=== PATIENT | male | born 1985 | race Caucasian/White ===

== ENCOUNTER 2019-04-07 10:54 | Inpatient (IN) | payer OTHER ==
[~2019-04-07] VITALS: Ht 190.5 cm; Wt 169.6 kg
[2019-04-07 11:04] VITALS: BP 162/97
[2019-04-07] MEDS ORDERED: AMPICILLIN/SULBACTAM 3 GM in NACL 0.9% MINI-BAG PLUS 100 ML IV ONE (11:25)
[2019-04-07] MEDS ORDERED: NACL 0.9% 1,000 ML IV SCH (11:25)
--- NOTE | 2019-04-07 11:30 | NUR ---
PT BIB GIRLFRIEND FOR WOUND TO LT FOOT X1 YEAR. OLD DRESSING REMOVED. PT HAS OPEN WOUND TO LT FOOT, TENDON VISIBLE, WOUND BED GRANULATING, SANGRIOUS DRAINAGE, NO ODOR PRESENT, PERIWOUND DRY/CRACKED/CALOUSED, + EDEMA. PERDORMED WOUND CARE. CLEANSED W/ NS, APPLIED WET TO DRY DRESSING, WRAPED WITH KERLEX AND SECURED WITH TAPE. PT TOLERATED WELL. ER MD AT BEDSIDE AT THIS TIME. MEDHX:DM, HTN, AMPUTATION OF LT 1RST AND 5TH TOE RX:PT SONDRA WENT TO GET LIST.
[2019-04-07] MEDS ORDERED: AMPICILLIN/SULBACTAM 3 GM VIAL ONE (11:41)
--- NOTE | 2019-04-07 11:41 | NUR ---
X-RAY AT BEDSIDE
[2019-04-07 11:56] LABS: ANION GAP 14.8 (8-16); BASOPHILS # (AUTO) 0.1 K/uL (0.00-0.22); CARBON DIOXIDE 21.8 mmol/L (21-32); CREATININE 2.7 mg/dL (0.7-1.3); EOSINOPHILS # (AUTO) 0.3 K/uL (0-0.4); MONOCYTES # (AUTO) 1.3 K/uL (0.8-1.0); NEUTROPHILS # (AUTO) 7.4 K/uL (1.8-7.7); POTASSIUM 4.6 mmol/L (3.5-5.1); WHITE BLOOD COUNT (AUTO) 10.6 K/uL (4.8-10.8)
[2019-04-07 12:03] LABS: MEAN CORPUSCULAR HGB CONC 33 g/dL (33-37)
[2019-04-07 12:04] LABS: BASOPHILS % (AUTO) 0.6 % (0.0-2.0); EOSINOPHILS % (AUTO) 2.9 % (0.0-4.0); HEMATOCRIT 22.9 % (36-52); HEMOGLOBIN 7.5 g/dL (12.0-18.0); LYMPHOCYTES % (AUTO) 14.3 % (20.5-51.1); MEAN CORPUSCULAR HEMOGLOBIN 28 pg (27-31); MEAN CORPUSCULAR VOLUME 86.9 fL (80-94); NEUTROPHILS % (AUTO) 70.2 % (42.2-75.2); PLATELET COUNT (AUTO) 425 K/uL (140-450); RED BLOOD CELL COUNT(AUTO) 2.64 MIL/uL (4.20-6.10)
[2019-04-07 12:05] LABS: LYMPHOCYTES # (AUTO) 1.5 K/uL (2.0-11.5)
--- NOTE | 2019-04-07 12:05 | NUR ---
PT REPORTS PAIN AT 8 IN LT FOOR, ER NOTIFIED
[2019-04-07] MEDS ORDERED: MORPHINE SULFATE 4 MG/ML SYR IVP ONE (12:20)
[2019-04-07] MEDS ORDERED: CLON0.2T43 PO (12:44)
[2019-04-07] MEDS ORDERED: METO-485 PO (12:44)
[2019-04-07] MEDS ORDERED: HYDR100T79 PO (12:44)
[2019-04-07] MEDS ORDERED: RANI150T8 PO (12:44)
[2019-04-07] MEDS ORDERED: [UNRECOGNIZED DRUG - CODE] PO (12:44)
[2019-04-07] MEDS ORDERED: AMLO5TAB PO (12:44)
--- NOTE | 2019-04-07 13:30 | NUR ---
Patient noted to have existing wound upon arrival to ER to left foot. Photos taken of wound and placed in chart. Wound covered with dressing. Physician informed.
[2019-04-07] MEDS ORDERED: MORPHINE SULFATE 10 MG/ML VIAL IVP ONE (13:35)
[2019-04-07] MEDS ORDERED: HYDROcodone/APAP 5/325 MG 1 TAB TAB PO PRN ×2 (13:45→14:30)
[2019-04-07] MEDS ORDERED: VANCOMYCIN PER PHARMACY MC PRN (13:45)
[2019-04-07 14:30] VITALS: BP 152/89
[2019-04-07] MEDS ORDERED: ACETAMINOPHEN 325 MG TAB PO PRN (14:30)
[2019-04-07] MEDS ORDERED: ONDANSETRON 4 MG/2 ML VIAL IVP PRN (14:30)
[2019-04-07] MEDS ORDERED: LORazepam 2 MG/ML VIAL IVP PRN (14:30)
--- NOTE | 2019-04-07 14:30 | NUR ---
Patient will be admitted to care of [facility]. Admited to MED/SURG. Will go to room 105A. Belongings list completed. Report to AUDREY RIZO.
--- NOTE | 2019-04-07 14:30 | NUR ---
PATIENT ARRIVED FROM ER VIA WHEELCHAIR. ABLE TO AMBULATE TO [facility] BED WITH STEADY GAIT. NO DISTRESS NOTED. PAIN WITHIN TOLERABLE AT THIS TIME. AAOX4, CALM, COOPERATIVE, SKIN COLOR APPROPRIATE TO ETHNICITY, WARM TO TOUCH. HAS LEFT ANKLE OPEN CELLULITIS AND LEFT 1ST AND 5TH TOE AMPUTATED. IV SITE INTACT, PATENT, AND ON SALINE LOCK. RESPIRATIONS EVEN, UNLABORED, ON ROOM AIR. ORIENTED PATIENT TO ROOM AND CALL LIGHT. REVIEWED PLAN OF CARE WITH PATIENT. PATIENT VERBALIZED UNDERSTANDING. SAFETY MEASURES IN PLACE, CALL LIGHT WITHIN REACH. WILL CONTINUE TO MONITOR.
[2019-04-07] MEDS ORDERED: VANCOMYCIN 1,500 MG in NACL 0.9% 500 ML IV SCH (16:00)
[2019-04-07] MEDS ORDERED: INFLUENZA VACCINE QUAD 0.5 ML SYR IMVAC PRN (16:00)
[2019-04-07] MEDS ORDERED: PNEUMOCOCCAL VACCINE 23 MCG/0.5 ML VIAL IMVAC PRN (16:00)
--- NOTE | 2019-04-07 16:40 | NUR ---
DR. ALONZO AT BEDSIDE EVALUATING PATIENT. WILL CONTINUE TO MONITOR.
[2019-04-07] MEDS: AMYLASE/LIPASE/PROTEASE 1 CAPDR PO SCH (17:00)
--- NOTE | 2019-04-07 17:09 | NUR ---
PATIENT COMPLAINS OF PAIN, NORCO GIVENA THIS TIME. OTHER SCHEDULED MEDICATIONS DUE GIVEN. WILL CONTINUE TO MONITOR.
--- NOTE | 2019-04-07 19:16 | NUR ---
GAVE REPORT TO QUALITY TECHNICIAN NURSE FOR CONTINUITY OF CARE PATIENT IN STABLE CONDITION.
--- NOTE | 2019-04-07 19:17 | NUR ---
RECD. RESTING IN BED, AWAKE, A/OX4. RESPIRATION EVEN AND UNLABORED. IVPB OF VANCOMYCIN INFUSING AT 250 ML/HR, LEFT HAND G22. LEFT FOOT WOUND COVERED WITH DRESSING, NOTED SOME YELLOW DRAINAGE, WILL CHANGE DRESSING, LEFT FOOT 1ST AND 3RD TOE AMPUTATED. PLAN OF CARE FOR THE SHIFT DISCUSSED. VERBALIZED UNDERSTANDING. PAIN IN IN THE LEFT FOOT 08/14, REFUSED NORCO, STATED DOES NOT WORK FOR HIM WILL CALL MD FOR ORDER. GIRLFRIEND CAME BUT DID NOT BRING HOME MEDICATION OF RANITIDINE AND LIPASE/PROTEASE/AMYLASE TAB, STATED THERE'S NO MORE MEDICATION AVAILABLE AT HOME.
[2019-04-07] MEDS ORDERED: ZOLPIDEM 10 MG TAB PO PRN (19:50)
[2019-04-07 20:00] VITALS: BP 148/84
[2019-04-07] MEDS: MORPHINE SULFATE 4 MG/ML SYR IVP PRN (20:58)
--- NOTE | 2019-04-07 21:00 | NUR ---
Patient's Plan of Care was discussed and reviewed with GAMING FLOOR SUPERVISOR: SABRA HARRINGTON
[2019-04-07] MEDS: hydrALAZINE 25 MG TAB PO SCH (21:03)
[2019-04-07] MEDS: cloNIDine 0.1 MG TAB PO SCH (21:03)
--- NOTE | 2019-04-07 21:05 | NUR ---
DUE PO MEDICATIONS GIVEN.
--- NOTE | 2019-04-07 21:30 | NUR ---
CLEANSED WOUND WITH NS, PAT DRY, SWAB TAKE FOR WOUND CULTURE AND SENT TO LAB. WOUND COVERED WITH GAUZE AND APPLIED KERLIX AND TEJA WRAPPED BANDAGE PER AM NURSE ENDORSEMENT. ELEVATED LEFT FOOT ON TWO PILLOWS.
--- NOTE | 2019-04-08 | NUR ---
STILL AWAKE, WATCHING TV.
[2019-04-08 02:37] VITALS: BP 157/91
[2019-04-08] MEDS: MORPHINE SULFATE 4 MG/ML SYR IVP PRN ×3 (02:45→16:50)
--- NOTE | 2019-04-08 02:50 | NUR ---
PREPARED SELF TO SLEEP AFTER PAIN MEDICATION GIVEN BY SALLIE HADLEY.
--- NOTE | 2019-04-08 03:40 | NUR ---
SLEEPING COMFORTABLY IN BED.
[2019-04-08] MEDS: hydrALAZINE 25 MG TAB PO SCH ×2 (04:44→12:48)
--- NOTE | 2019-04-08 07:10 | NUR ---
CONDITION REMAIN STABLE. ENDORSED TO AM SHIFT NURSE FOR CONTINUITY OF CARE.
[2019-04-08 07:36] LABS: BASOPHILS % (AUTO) 0.7 % (0.0-2.0); EOSINOPHILS # (AUTO) 0.3 K/uL (0-0.4); EOSINOPHILS % (AUTO) 4.7 % (0.0-4.0); HEMATOCRIT 21.4 % (36-52); LYMPHOCYTES # (AUTO) 1.3 K/uL (2.0-11.5); LYMPHOCYTES % (AUTO) 18.5 % (20.5-51.1); MEAN CORPUSCULAR HEMOGLOBIN 28 pg (27-31); MEAN CORPUSCULAR HGB CONC 33 g/dL (33-37); MEAN CORPUSCULAR VOLUME 86.7 fL (80-94); MONOCYTES # (AUTO) 0.7 K/uL (0.8-1.0); MONOCYTES % (AUTO) 10.3 % (1.7-9.3); NEUTROPHILS # (AUTO) 4.5 K/uL (1.8-7.7); NEUTROPHILS % (AUTO) 65.8 % (42.2-75.2); PLATELET COUNT (AUTO) 390 K/uL (140-450); RED BLOOD CELL COUNT(AUTO) 2.47 MIL/uL (4.20-6.10); RED CELL DISTRIBUTION WIDTH 14.2 % (11.6-13.7); WHITE BLOOD COUNT (AUTO) 6.8 K/uL (4.8-10.8)
--- NOTE | 2019-04-08 07:39 | NUR ---
RECEIVED REPORT FROM ZOO KEEPER RN FOR CONTINUITY OF CARE. PT RESTING IN BED, AWAKE, AAOX4. RESPIRATION EVEN AND UNLABORED. IV ON THE LEFT HAND 22G. LEFT FOOT WOUND COVERED WITH DRESSING, NOTED SOME YELLOW DRAINAGE, WILL CHANGE DRESSING, LEFT FOOT 1ST AND 3RD TOE AMPUTATED. PLAN OF CARE FOR THE SHIFT DISCUSSED WITH PT. VERBALIZED UNDERSTANDING. PAIN IN THE LEFT FOOT 4/10, WILL MEDICATE NEEDED. AL SAFETY MEASURES IN PLACE. BED IN LOW POSITION, CALL LIGHT WITHIN REACH. WILL ROUND FREQUENTLY ON PT.
--- NOTE | 2019-04-08 07:52 | NUR ---
1700 LIPASE WAS NOT ADMINISTERED FOR DOSE YESTERDAY 04/07/19. DOCUMENTED NON-ADMIN SO 0800 DOSE CAN BE GIVEN.
[2019-04-08 08:00] VITALS: BP 157/92
[2019-04-08 08:18] LABS: ALBUMIN 1.9 g/dL (3.4-5.0); ANION GAP 15.3 (8-16); CREATININE 2.3 mg/dL (0.7-1.3); POTASSIUM 4.3 mmol/L (3.5-5.1); TOTAL BILIRUBIN 0.2 mg/dL (0.0-1.0)
--- NOTE | 2019-04-08 08:26 | NUR ---
PATIENT HAS BEEN SCREENED AND CATEGORIZED HIGH NUTRITION RISK. PATIENT WILL BE SEEN WITHIN 1-2 DAYS OF ADMISSION. 04/08/19-04/09/[address]
[2019-04-08] MEDS ORDERED: DEXTROSE 50% 50 ML SYR IVP PRN (08:35)
[2019-04-08] MEDS: AMYLASE/LIPASE/PROTEASE 1 CAPDR PO SCH ×3 (08:42→16:50)
[2019-04-08] MEDS: cloNIDine 0.1 MG TAB PO SCH (08:42)
[2019-04-08] MEDS ORDERED: FAMOTIDINE 20 MG TAB PO SCH (09:00)
[2019-04-08] MEDS ORDERED: LEVOFLOXACIN 500 MG/D5W PREMIX 100 ML IV SCH (09:00)
[2019-04-08] MEDS ORDERED: amLODIPine 5 MG TAB PO SCH (09:00)
[2019-04-08] MEDS ORDERED: ENOXAPARIN 40 MG/0.4 ML SYR SUBQ SCH (09:00)
--- NOTE | 2019-04-08 09:15 | NUR ---
ADMINISTERED PT'S MORNING SCHEDULED MEDS. PT TOLERATED THEM WELL. PAIN MEDS ALSO ADMINISTERED FOR PAIN OF 8/10. ALL OTHER NEEDS MET. WILL CONTINUE TO ROUND FREQUENTLY ON PT. BED IN LOW POSITION, CALL LIGHT WITHIN REACH.
[2019-04-08] MEDS ORDERED: VANCOMYCIN 1,500 MG in DEXTROSE 5% 500 ML IV SCH (10:00)
--- NOTE | 2019-04-08 10:05 | NUR ---
Friction Saw Operator Note: Basic Screen: Yes High Risk DC Screen [place]: SANDEE TURPIN [place] Relationship: SIGNIFICANT OTHER Pre-Admission Living Arrangements: Lives with Other Prior ADL Independent Current Home Health Name/Tel: N/A Current DME/02 Name/Tel: [facility] Current Hospice Name/Tel: N/A Current Dialysis Name/Tel: N/A Healthcare Decision Maker: Patient Advance Directive No - REFUSED Information Taught: Advance Directive Person Taught: Patient Teaching Tools: Verbal Factors Affecting Learning: None Participation Level: Refused Evaluation: Verbalizes Understanding Needs Additional Education: No Discipline: Case Mgt/Social Svcs Tentative Discharge Plan/Destination: No Needs Identified Will require assistance post discharge: No Referred to Laborer [employer]: No Tentative Discharge Plan Summary: Patient is a 33-year-old male admitted for foot cellulitis. Patient has PMHX of diabetes and hypertension. Patient was admitted from home. SW met with patient at bedside to verify demographics. Patient reports no history of mental health and no substance abuse history. Patient reports occasional use of marijuana but did not want to disclose how much or how often. Patient's tentative discharge plan is to return home. No further needs identified. Signature: JEFFERY Dillard Date: Apr 08, 2019 Time: 10:04
[2019-04-08] MEDS ORDERED: FUROSEMIDE 40 MG TAB PO SCH (10:26)
[2019-04-08] MEDS ORDERED: FURO-570 PO (10:36)
--- NOTE | 2019-04-08 11:23 | NUR ---
PT RESTING IN BED. ALL NEEDS MET. WILL CONTINUE TO ROUND FREQUENTLY ON PT. BED IN LOW POSITION, CALL LIGHT WITHIN REACH.
[2019-04-08] MEDS: INSULIN LISPRO SLIDING SCALE 100 UNITS/ML VIAL SUBQ PRN ×2 (11:25→17:02)
[2019-04-08] MEDS: BLOOD GLUCOSE MONITORING 1 DEV DEV FS SCH ×2 (11:32→16:50)
--- NOTE | 2019-04-08 12:53 | NUR ---
04/08/19 RD INITIAL ASSESSMENT COMPLETED PLEASE REFER TO NUTRITION ASSESSMENT UNDER CARE ACTIVITY FOR ESTIMATED NUTRITIONAL NEEDS. 1. CONTINUE CARDIAC AND CCHO 60GM DIET TOLERATED 2. RD PROVIDED NUTRITION EDUCATION FOR DIABETES. PT ACCEPTED. 3. RECOMMEND VITAMIN C 500 MG AND MVI DAILY FOR WOUND HEALING 4. RD TO FOLLOW-UP 3-5 DAYS, MODERATE RISK YOLIE RECINOS RD
--- NOTE | 2019-04-08 13:42 | NUR ---
PT SLEEPING. ALL NEEDS MET. WILL CONTINUE TO ROUND FREQUENTLY ON PT. BED IN LOW POSITION, CALL LIGHT WITHIN REACH.
--- NOTE | 2019-04-08 15:04 | NUR ---
PT WATCHING TV. DENIES PAIN OR SOB. ALL NEEDS MET.
--- NOTE | 2019-04-08 15:55 | NUR ---
DISCHARGE PLANNING: LATE ENTRY: RECEIVED AN ORDER FOR DC HOME WITH HOME HEALTH FOR WOUND CARE. MET WITH THE PATIENT AT THE BEDSIDE TO DISCUSS DC PLAN AND IS AGREEABLE. Addendum: 04/09/19 at 1220 by Daniela Lilly CM LATE ENTRY: ORDERS FAXED TO [facility] AND [facility]. CONTACTED AURY OF [facility], SHE STATED SHE WILL EMAIL ME THE AUTH FOR HOME HEALTH AND OUT PATIENT FOLLOW UP WITH BOLT HEADER. PER AURY OF [facility], NEPHRO AUTH FOR DR CALDERA [id number] AND FOR HOME HEALTH IS [id number]. CONTACTED [facility] AT [phone], ABLE TO SPEAK TO ELANA SHE STATED THE PERSON IN CHARGE OF REFERRALS JUST STEPPED OUT. SHE PROVIDED ME OF THE FAX NUMBER [phone] TO SEND REFERRAL. REFERRAL SENT TO THE PROVIDED NUMBER. WILL FOLLOW UP. HOME HEALTH AUTH PROVIDED TO [facility]. AWAITING FOR RESPONSE. Addendum: 04/09/19 at 1321 by Daniela Lilly CM CONTACTED DR. CALDERA'S OFFICE, ABLE TO SPEAK TO ELANA. SHE STATED THE EARLIEST APPOINTMENT SHE CAN PROVIDE IS JUN 01, 2019 AT 3PM. CONTACTED PATIENT AT [phone] REGARDING THE APPOINTMENT, ABLE TO VERBALIZE UNDERSTANDING. PROVIDED HIM WITH THE OFFICE PHONE NUMBER AND ADDRESS.
[2019-04-08 16:00] VITALS: BP 158/92
--- NOTE | 2019-04-08 17:08 | NUR ---
PT RESTING IN BED. ALL NEEDS MET. WILL CONTINUE TO ROUND FREQUENTLY ON PT.
--- NOTE | 2019-04-08 18:10 | NUR ---
PT DISCHARGED HOME WITH HOME HEALTH. EXPLAINED ALL DISCHARGE PAPERWORK TO PT AND PT VERBALIZED UNDERSTANDING OF TEACHING. PT SIGNED ALL DISCHARGE PAPERWORK. PT TOOK ALL PERSONAL BELONGING HOME. PT REFUSED PNA ND FLU VACCINES AT D/C. WRIST BAND REMOVED AND PLACED IN SHRED BIN. PT WAS GIVEN RX FOR LASIX. PT VERBALIZED UNDERSTANDING OF USAGE. INSTRUCTED PT TO FOLLOW-UP WITH PCP WITHIN 5-7 DAYS. PT LEFT IN STABLE CONDITION ACCOMPANIED BY FAMILY.
--- NOTE | 2019-04-09 08:41 | NUR ---
WOUND CONSULT NOT DONE, PT. DISCHARGED.
== END 2019-04-08 18:25 | disposition home or self-care (01) | DRG 469 ==
LOC: MED 10:54 → MTU 13:51
PROVIDERS: ADMIT Internal Medicine Pulmonary Disease; ATTEND Internal Medicine Pulmonary Disease
DX: N17.0 Acute kidney failure with tubular necrosis (principal); E43 Unspecified severe protein-calorie malnutrition; E11.22 Type 2 diabetes mellitus with diabetic chronic kidney disease; E11.621 Type 2 diabetes mellitus with foot ulcer; L97.529 Non-pressure chronic ulcer of other part of left foot with unspecified severity; N18.9 Chronic kidney disease, unspecified; E66.01 Morbid (severe) obesity due to excess calories; Z68.41 Body mass index [BMI] 40.0-44.9, adult
CPT/HCPCS: 36415; 73610; 80048; 80053; 80202; 82948; 83605; 84484; 85025; 87040; 87070; 87081; 87186; 93005; 96365; 96375; 96376; 99285; J0295; J1650; J1956; J2270; J2405; J3370; J7030; J7060; Q0092

== ENCOUNTER 2019-05-07 09:12 | Inpatient (IN) | payer OTHER ==
[~2019-05-07] VITALS: Ht 190.5 cm; Wt 166.5 kg
[~2019-05-07 09:12] MED LIST: AMLO5TAB PO; CLON0.2T43 PO; FURO-570 PO; HYDR100T79 PO; METO-485 PO; RANI150T8 PO; [UNRECOGNIZED DRUG - CODE] PO
[2019-05-07 09:29] VITALS: BP 203/112
--- NOTE | 2019-05-07 10:09 | NUR ---
PT AMBULATED TO BED 01.
--- NOTE | 2019-05-07 10:26 | NUR ---
33 Y/M BIB AMBULANCE PRESENTS TO ED WITH C/O NON RADIATING EPIGASTRIC PAIN X 2 DAY. DENIES ANY SPICY FOOD OR FRIED FOODS. PT C/O N/V/D. PAIN IS DULL 12/15. PT DENIES TAKING ANY OTC ANTACIDS. LUNGS CLEAR THROUGHOUT. B LEG SWELLING, NON PITTING. RX- "TOO MANY" PT UNABLE TO RECALL NAMES. NKDA HX- HTN, DM, PANCREATITIS, GASTROPARESIS, GERD
--- NOTE | 2019-05-07 11:03 | NUR ---
PT HYPERTENSIVE. PT NOT TAKING BP MEDICATION. PT CONTINUES TO PACE IN THE ROOM, STATES HE DOES NOT WANT TO SIT
[2019-05-07] MEDS ORDERED: KETOROLAC 30 MG/ML VIAL IVP ONE (11:05)
[2019-05-07] MEDS ORDERED: ONDANSETRON 4 MG/2 ML VIAL IVP ONE (11:05)
[2019-05-07] MEDS ORDERED: NACL 0.9% 1,000 ML IV ONE (11:05)
--- NOTE | 2019-05-07 11:44 | NUR ---
MULTIPLE ATTEMPTS MADE FOR IV INSERTION. UNSUCCESSFUL. DR LUCIA AWARE.
--- NOTE | 2019-05-07 11:52 | NUR ---
DR LUCIA STATES HE WILL CHANGE MEDICATIONS TO IM
[2019-05-07] MEDS ORDERED: ONDANSETRON 4 MG/2 ML VIAL IM ONE (12:10)
[2019-05-07] MEDS ORDERED: KETOROLAC 60 MG/2 ML VIAL IM ONE (12:10)
--- NOTE | 2019-05-07 12:19 | NUR ---
LAB AT BEDSIDE
--- NOTE | 2019-05-07 12:19 | NUR ---
TORADOL AND ZOFRAN IM ADMINISTERED
--- NOTE | 2019-05-07 12:30 | NUR ---
PT STATES HE REFUSED CT BECAUSE HE WAS IN PAIN, INFORMED PT THAT CT WILL ALLOW US TO DETERMINE CAUSE OF PAIN
--- NOTE | 2019-05-07 12:49 | NUR ---
PT TAKEN TO CT VIA WHEELCHAIR.
[2019-05-07 12:50] LABS: BASOPHILS # (AUTO) 0.1 K/uL (0.00-0.22); BASOPHILS % (AUTO) 0.7 % (0.0-2.0); EOSINOPHILS % (AUTO) 0.1 % (0.0-4.0); HEMATOCRIT 31.4 % (36-52); LYMPHOCYTES # (AUTO) 1.3 K/uL (2.0-11.5); LYMPHOCYTES % (AUTO) 9.7 % (20.5-51.1); MEAN CORPUSCULAR HEMOGLOBIN 27 pg (27-31); MEAN CORPUSCULAR HGB CONC 32 g/dL (33-37); MEAN CORPUSCULAR VOLUME 85.7 fL (80-94); MONOCYTES # (AUTO) 0.9 K/uL (0.8-1.0); MONOCYTES % (AUTO) 6.5 % (1.7-9.3); NEUTROPHILS # (AUTO) 10.9 K/uL (1.8-7.7); PLATELET COUNT (AUTO) 474 K/uL (140-450); RED BLOOD CELL COUNT(AUTO) 3.66 MIL/uL (4.20-6.10); RED CELL DISTRIBUTION WIDTH 14.7 % (11.6-13.7); WHITE BLOOD COUNT (AUTO) 13.2 K/uL (4.8-10.8)
[2019-05-07 12:58] LABS: BARBITURATE, URINE NEG. ng/ml (NEG <=200); BENZODIAZEPINE, URINE NEG. ng/mL (NEG <=200); CANNABINOID, URINE POS. ng/mL (NEG <=50); COCAINE, URINE NEG. ng/mL (NEG <=300); OPIATE, URINE NEG. ng/mL (NEG <=2000); PHENCYCLIDINE SCREEN,URINE NEG. ng/mL (NEG <=25)
[2019-05-07] MEDS ORDERED: LIDOCAINE VISCOUS 2% 20 ML UDC PO ONE (13:05)
[2019-05-07] MEDS ORDERED: DICYCLOMINE HCL LIQUID 10 MG/5 ML UDC PO ONE (13:05)
[2019-05-07] MEDS ORDERED: ALUMINUM HYD/MAG/SIMETHICONE 30 ML UDC PO ONE (13:05)
[2019-05-07 13:07] LABS: ALBUMIN 2.8 g/dL (3.4-5.0); ANION GAP 11.7 (8-16); CARBON DIOXIDE 26.9 mmol/L (21-32); CREATININE 2.3 mg/dL (0.6-1.3); POTASSIUM 3.6 mmol/L (3.5-5.1); TOTAL BILIRUBIN 0.5 mg/dL (0.0-1.0)
[2019-05-07] MEDS ORDERED: MORPHINE SULFATE 4 MG/ML SYR IM ONE (13:25)
--- NOTE | 2019-05-07 13:32 | NUR ---
SHAKIR RIZO MEDICATING PT WITH MORPHINE
--- NOTE | 2019-05-07 13:35 | NUR ---
PTS BP HYPERTENSIVE, PT PENDING PICC LINE INSERTION
--- NOTE | 2019-05-07 14:10 | NUR ---
PT STATES PAIN 10, INSTRUCTED PT THAT PICC LINE WILL BE PLACED SOON NURSE ARRIVES, NO ETA FOR PICC LINE NURSE
--- NOTE | 2019-05-07 14:14 | NUR ---
NOTIFIED DR LUCIA OF PTS BP AGAIN, STATES HE WILL ORDER HYDRALAZINE
[2019-05-07] MEDS ORDERED: hydrALAZINE 20 MG/ML VIAL IM ONE (14:15)
--- NOTE | 2019-05-07 14:24 | NUR ---
199/128 PTS BP, HYDRALAZINE IM ADMINISTERED
--- NOTE | 2019-05-07 15:19 | NUR ---
Patient will be admitted to care of [facility]. Admited to [facility]. Will go to room 105B. Belongings list completed. Report to NIKA RIZO. NIKA RIZO INFORMED OF PICC LINE. PT AND DR LUCIA HAS SIGNED CONSENT FOR PICC
--- NOTE | 2019-05-07 15:40 | NUR ---
BEDSIDE SHIFT REPORT RECEIVED FROM ER NURSE FOR CONTINUATION OF CARE. PATIENT IS PACING IN HIS ROOM DUE TO GI PAIN. WAITING FOR PICC LINE NURSE TO COME IN AND INSERT A PICC, FOLLOWED UP AND WAITING FOR A PHONE CALL BACK FROM REGLA RIZO PICC LINE NURSE. PATIENT HAS ACUTE PANCREATITIS. BLOOD PRESSURE IS 181/110, ORDERS FOR HYDRALAZINE 10 Q4 IV WHEN SYSTOLIC IS GREATER THAN 160. WILL CONTINUE TO MONITOR.
[2019-05-07 16:00] VITALS: BP 181/110
[2019-05-07] MEDS ORDERED: NITROGLYCERIN 2% 1 GM PKT TP PRN (16:25)
[2019-05-07] MEDS ORDERED: ALUMINUM HYD/MAG/SIMETHICONE 30 ML UDC ONE (16:30)
[2019-05-07] MEDS ORDERED: DICYCLOMINE HCL LIQUID 10 MG/5 ML UDC ONE (16:30)
[2019-05-07] MEDS ORDERED: LIDOCAINE VISCOUS 2% 20 ML UDC ONE (16:30)
[2019-05-07] MEDS ORDERED: DICYCLOMINE HCL LIQUID 20 MG, ALUMINUM HYD/MAG/SIMETHICONE 30 ML, LIDOCAINE VISCOUS 2% ... PO SCH ×3 (17:00)
--- NOTE | 2019-05-07 17:00 | NUR ---
MULTIPLE ATTEMPTS MADE AT IV INSERTION, PICC LINE RN FOLLOWED UP AND WAS TOLD THAT A PHONE CALL SHOULD BE EXPECTED TO GIVE AN ETA OF REGLA PICC RN NURSE. PATIENT NOTIFIED, PATIENT COMPLAINING OF SEVERE ABDOMINAL PAIN, GI COCKTAIL ORDERED BY DR. CHANEY. PATIENT PACING THE ROOM, WILL CONTINUE TO MONITOR.
[2019-05-07] MEDS: DEXT 5% / NACL 0.45% 1,000 ML IV SCH (17:12)
[2019-05-07] MEDS ORDERED: ONDANSETRON 4 MG/2 ML VIAL IVP PRN ×2 (17:15→17:25)
[2019-05-07] MEDS ORDERED: HYDROmorphone 1 MG/ML AMP IVP PRN (17:15)
[2019-05-07] MEDS ORDERED: LORazepam 2 MG/ML VIAL IVP PRN (17:15)
[2019-05-07] MEDS ORDERED: ACETAMINOPHEN 325 MG TAB PO PRN ×2 (17:15→17:25)
[2019-05-07] MEDS ORDERED: HYDROcodone/APAP 5/325 MG 1 TAB TAB PO PRN ×3 (17:15→17:25)
[2019-05-07] MEDS ORDERED: ALUMINUM HYD/MAG/SIMETHICONE 30 ML UDC PO PRN (17:25)
[2019-05-07] MEDS ORDERED: IPRATROPIUM 0.02% 0.5 MG/2.5 ML NEBU INH PRN (17:25)
[2019-05-07] MEDS ORDERED: ACETAMINOPHEN 650 MG SUPP RC PRN (17:25)
[2019-05-07] MEDS ORDERED: POTASSIUM CHLORIDE 10 MEQ TABER PO PRN (17:25)
[2019-05-07] MEDS ORDERED: ALBUTEROL 0.083% 2.5 MG/3 ML NEBU INH PRN (17:25)
[2019-05-07] MEDS ORDERED: ZOLPIDEM 5 MG TAB PO PRN (17:25)
[2019-05-07] MEDS ORDERED: guaiFENesin DM 200/20 MG-10 ML 10 ML UDC PO PRN (17:25)
[2019-05-07] MEDS ORDERED: MAGNESIUM OXIDE 400 MG TAB PO PRN (17:25)
[2019-05-07] MEDS ORDERED: BISACODYL 10 MG SUPP RC PRN (17:25)
[2019-05-07] MEDS ORDERED: DEXTROSE 50% 50 ML SYR IVP PRN (17:25)
[2019-05-07] MEDS ORDERED: DOCUSATE SODIUM 250 MG GELCAP PO PRN (17:25)
[2019-05-07] MEDS ORDERED: diphenhydrAMINE 50 MG/ML VIAL IVP PRN (17:25)
[2019-05-07] MEDS ORDERED: MAG SULF 2000 MG/WATER PREMIX 50 ML IV PRN (17:25)
[2019-05-07] MEDS ORDERED: cloNIDine 0.1 MG TAB PO PRN (17:25)
--- NOTE | 2019-05-07 17:49 | NUR ---
MRSA NARES SWAB TAKEN TO THE LAB.
[2019-05-07 17:58] LABS: CHOL/HDL RATIO 6.5 (1-4.5)
--- NOTE | 2019-05-07 19:00 | NUR ---
GI COCKTAIL ADMINISTERED, PATIENT REPORTS MINOR RELIEF. NO PHONE CALL RECEIVED FROM REGLA RIZO PICC NURSE, TABITHA RIZO SUCCESSFULLY PLACED A 22 GAUGE IV IN THE LEFT AC. PATIENT WAS ADMINISTERED MORPHINE IV AND IS RUNNING D5 1/2 NS AT 125 ML/HR. EDUCATED ON THE SIDE EFFECTS OF OPIATE MEDICATION SUCH CONSTIPATION, DECREASED RESPIRATORY RATE, AND DROWSINESS, PATIENT VERBALIZED UNDERSTANDING. WILL CONTINUE TO MONITOR.
[2019-05-07] MEDS: MORPHINE SULFATE 2 MG/ML SYR IVP PRN ×2 (19:06→21:53)
--- NOTE | 2019-05-07 19:25 | NUR ---
REPORT GIVEN TO [facility] SHIFT NURSE FOR CONTINUATION OF CARE.
--- NOTE | 2019-05-07 19:26 | NUR ---
REPORT RECEIVED FROM AM NURSE AT BEDSIDE. PT IN STABLE CONDITION. AAOX4. INTRODUCED SELF TO PT. BOARD UPDATED. PT HAS COMPLAINTS OF PAIN. WILL MEDICATE. NO SOB. AFEBRILE. PT IS AMBULATORY. IV SITE L AC 22G RUNNING D5NS@125ML/HR PATENT AND INTACT. SKIN WARM, DRY, AND INTACT WITH NO OPEN WOUNDS. BED LOCKED IN LOW POSITION. CALL WEEKS WITHIN REACH. SAFETY PRECAUTION IN PLACE. ALL NEEDS MET AT THIS TIME.
--- NOTE | 2019-05-07 20:20 | NUR ---
NURSE REGLA RIZO INSERTED PICC LINE R UA DOUBLE LUMEN. XRAY COMPLETE AND SEEN BY REGLA. PER REGLA RIZO PICC LINE OK TO USE. CONSENT OBTAINED. TIME OUT WAS COMPLETED.
[2019-05-07] MEDS: BLOOD GLUCOSE MONITORING 1 DEV DEV FS SCH (21:01)
--- NOTE | 2019-05-07 21:01 | NUR ---
BS 216. 4 UNITS OF HUMALOG GIVEN. PT TOLERATED WELL.
[2019-05-07] MEDS: INSULIN LISPRO SLIDING SCALE 100 UNITS/ML VIAL SUBQ PRN (21:04)
--- NOTE | 2019-05-07 21:53 | NUR ---
MORPHINE GIVEN FOR 9/10 ABDOMINAL PAIN. PT TOLERATED WELL.
--- NOTE | 2019-05-07 23:40 | NUR ---
PT HAS COMPLAINTS OF PAIN. WANTS STRONGER MEDICATION. AWAITING CALL BACK FROM .
[2019-05-08] VITALS: BP 158/101
--- NOTE | 2019-05-08 | NUR ---
MD CALL BACK. NOTIFIED MD OF PATIENT COMPLAINTS OF PAIN. MD ORDERED TO INCREASE MORPHINE TO 4MG IVP Q3H PRN FOR SEVERE PAIN. TORB.
[2019-05-08] MEDS: MORPHINE SULFATE 2 MG/ML SYR IVP PRN ×8 (00:33→22:42)
--- NOTE | 2019-05-08 00:33 | NUR ---
MORPHINE GIVEN FOR 9/10 ABDOMINAL PAIN. PT TOLERATED WELL.
--- NOTE | 2019-05-08 01:00 | NUR ---
MYLANTA GIVEN FOR UPSET STOMACH.
--- NOTE | 2019-05-08 02:05 | NUR ---
PT AWAKE AND ALERT WATCHING TV. NO S/S OF DISTRESS NOTED. NO COMPLAINTS OF PAIN. ALREADY MEDICATED. NO SOB. AFEBRILE. WILL CONTINUE TO MONITOR.
[2019-05-08] MEDS: DEXT 5% / NACL 0.45% 1,000 ML IV SCH ×3 (03:33→17:12)
--- NOTE | 2019-05-08 03:33 | NUR ---
MORPHINE GIVEN FOR 9/10 ABDOMINAL PAIN. PT TOLERATED WELL.
[2019-05-08] MEDS: LORazepam 2 MG/ML VIAL IVP PRN (04:29)
--- NOTE | 2019-05-08 04:29 | NUR ---
ATIVAN GIVEN FOR AGITATION. PT TOLERATED WELL.
[2019-05-08] MEDS: BLOOD GLUCOSE MONITORING 1 DEV DEV FS SCH ×4 (05:24→20:52)
[2019-05-08] MEDS: hydrALAZINE 25 MG TAB PO SCH ×3 (06:02→22:41)
--- NOTE | 2019-05-08 06:02 | NUR ---
HYDRALAZINE GIVEN PO. BS 167. 2 UNITS OF HUMALOG GIVEN. PT TOLERATED WELL.
[2019-05-08] MEDS: INSULIN LISPRO SLIDING SCALE 100 UNITS/ML VIAL SUBQ PRN ×2 (06:03→12:07)
--- NOTE | 2019-05-08 06:25 | NUR ---
PT AWAKE AND ALERT WATCHING TV. PT IN STABLE CONDITION.
--- NOTE | 2019-05-08 06:42 | NUR ---
MORPHINE GIVEN FOR 8/10 ABDOMINAL PAIN. PT TOLERATED WELL.
[2019-05-08 06:45] LABS: BASOPHILS % (AUTO) 0.4 % (0.0-2.0); EOSINOPHILS # (AUTO) 0.2 K/uL (0-0.4); EOSINOPHILS % (AUTO) 1.4 % (0.0-4.0); HEMATOCRIT 28.4 % (36-52); HEMOGLOBIN 9.1 g/dL (12.0-18.0); LYMPHOCYTES # (AUTO) 1.5 K/uL (2.0-11.5); LYMPHOCYTES % (AUTO) 12.4 % (20.5-51.1); MEAN CORPUSCULAR HEMOGLOBIN 27 pg (27-31); MEAN CORPUSCULAR HGB CONC 32 g/dL (33-37); MEAN CORPUSCULAR VOLUME 85.6 fL (80-94); MONOCYTES # (AUTO) 1.1 K/uL (0.8-1.0); MONOCYTES % (AUTO) 9.2 % (1.7-9.3); NEUTROPHILS # (AUTO) 9.1 K/uL (1.8-7.7); NEUTROPHILS % (AUTO) 76.6 % (42.2-75.2); PLATELET COUNT (AUTO) 442 K/uL (140-450); RED BLOOD CELL COUNT(AUTO) 3.32 MIL/uL (4.20-6.10); RED CELL DISTRIBUTION WIDTH 14.8 % (11.6-13.7); WHITE BLOOD COUNT (AUTO) 11.8 K/uL (4.8-10.8)
--- NOTE | 2019-05-08 07:40 | NUR ---
RECEIVED PATIENT FROM DIAMOND SIZER NURSE. PATIENT IS AAOX4. RESPIRATIONS EVEN AND UNLABORED, ROOM AIR. VISIBLE CHEST RISE NOTED. PATIENT DENIES CHEST PAIN. ABDOMEN ROUND AND TENDER. C/O OF 1/10 ABDOMINAL PAIN. SKIN WARM AND DRY. OPEN WOUND IN THE ANTERIOR PART OF THE LEFT FOOT. OPEN WOUND IN THE POSTERIOR PART OF THE LEFT FOOT/ANKLE. SCABS IN THE LEFT PART OF THE LEFT FOOT. LEFT BIG TOE AMPUTATION. IV IN THE LEFT FOREARM G22, SALINE LOCK. PICC LINE RIGHT UA DOUBLE LUMEN RUNNING D51/2NS AT 125 ML/HR. PATENT AND FLUSHING WELL. PATIENT IS AMBULATORY. BED IN LOW POSITION. CALL LIGHT IS WITHIN REACH. WILL CONTINUE TO MONITOR.
[2019-05-08 07:45] LABS: ALBUMIN 2.8 g/dL (3.4-5.0); CARBON DIOXIDE 26.6 mmol/L (21-32); CREATININE 2.9 mg/dL (0.6-1.3); POTASSIUM 3.6 mmol/L (3.5-5.1); TOTAL BILIRUBIN 0.4 mg/dL (0.0-1.0)
[2019-05-08 08:00] VITALS: BP 174/113
[2019-05-08] MEDS: FAMOTIDINE 20 MG TAB PO SCH ×2 (08:39→20:50)
[2019-05-08] MEDS: PANTOPRAZOLE 40 MG INJ VIAL IVP SCH (08:39)
[2019-05-08] MEDS: amLODIPine 5 MG TAB PO SCH (08:40)
[2019-05-08] MEDS: METOCLOPRAMIDE 10 MG TAB PO SCH ×4 (08:40→20:50)
[2019-05-08] MEDS: cloNIDine 0.1 MG TAB PO SCH ×2 (08:41→20:51)
[2019-05-08] MEDS: ENOXAPARIN 30 MG/0.3 ML SYR SUBQ SCH (08:42)
--- NOTE | 2019-05-08 08:50 | NUR ---
CLEANED WOUND WITH NS, PAT DRIED, AND APPLIED GAUZE. WRAPPED WITH KERLEX AND TEJA WRAP - PATIENT PREFERENCE.
--- NOTE | 2019-05-08 08:50 | NUR ---
TAKEN PICTURES OF THE WOUND. WOUND CONSULT IS ALSO ORDERED.
[2019-05-08] MEDS ORDERED: FUROSEMIDE 40 MG TAB PO SCH (09:00)
[2019-05-08] MEDS ORDERED: NON-FORMULARY ITEM (Ranitidine HCl 150 MG) PO SCH (09:00)
--- NOTE | 2019-05-08 09:12 | NUR ---
CHANGED D51/2NS FLUID BAG. RATE IS 125 ML/HR
--- NOTE | 2019-05-08 10:02 | NUR ---
GIVEN MORPHINE FOR 8/10 ABDOMINAL PAIN. EXPLAINED TO PATIENT MEDS. PATIENT VERBALIZED UNDERSTANDING. BED IN LOW POSITION. CALL LIGHT IS WITHIN REACH. WILL CONTINUE TO MONITOR
--- NOTE | 2019-05-08 10:11 | NUR ---
REASSESSMENT FOR CLONIDINE. BP IS 141/90, HR, 107. WILL CONTINUE TO MONITOR PATIENT
--- NOTE | 2019-05-08 10:19 | NUR ---
PATIENT HAS BEEN SCREENED AND CATEGORIZED MODERATE NUTRITION RISK. PATIENT WILL BE SEEN WITHIN 3-5 DAYS OF ADMISSION. 05/10/19 - 05/12/19 [address]DS MBA, RD
--- NOTE | 2019-05-08 11:00 | NUR ---
REASSESS PAIN. PATIENT STATED 2/10 ABDOMINAL PAIN. TOLERABLE PAIN. WILL CONTINUE TO MONITOR
--- NOTE | 2019-05-08 11:27 | NUR ---
BLOOD GLUCOSE CHECK: 156. WILL GIVE INSULIN
[2019-05-08] MEDS: AMYLASE/LIPASE/PROTEASE 1 CAPDR PO SCH ×2 (12:03→16:17)
--- NOTE | 2019-05-08 13:11 | NUR ---
GIVEN MORPHINE FOR ABDOMINAL PAIN 91/0. PATIENT IS GUARDING ABDOMEN. EXPLAINED TO PATIENT MED. PATIENT VERBALIZED UNDERSTANDING. WILL CONTINUE TO MONITOR
--- NOTE | 2019-05-08 15:00 | NUR ---
GIVEN HYDRALAZINE SCHEDULED. BP IS 144/95, HR 93, O2SAT 98%. EXPLAINED TO PATIENT MED. PATIENT VERBALIZED UNDERSTANDING. BED IN LOW POSITION. CALL LIGHT IS WITHIN REACH. WILL CONTINUE TO MONITOR
[2019-05-08 16:00] VITALS: BP 137/87
--- NOTE | 2019-05-08 16:21 | NUR ---
GIVEN MORPHINE FOR PAIN / ABDOMEN AREA. GIVEN REGLAN AND PANCREASE. EXPLAINED TO PATIENT MEDS. PATIENT VERBALIZED UNDERSTANDING. BED IN LOW POSITION. CALL LIGHT IS WITHIN REACH. WILL CONTINUE TO MONITOR.
--- NOTE | 2019-05-08 16:31 | NUR ---
GLUCOSE CHECK: 146. NO INSULIN COVERAGE
--- NOTE | 2019-05-08 17:17 | NUR ---
REASSESSED PAIN. PATIENT DENIES PAIN. WILL CONTINUE TO MONITOR
--- NOTE | 2019-05-08 18:45 | NUR ---
PATIENT IS SLEEPING AT THIS TIME. NO SIGNS OF DISTRESS NOTED. BED IN LOW POSITION. CALL LIGHT IS WITHIN REACH.
--- NOTE | 2019-05-08 19:09 | NUR ---
ENDORSED PATIENT TO MANAGER QUANTITATIVE NURSE, GULSHAN, FOR CONTINUITY OF CARE. PATIENT IS IN STABLE CONDITION.
--- NOTE | 2019-05-08 19:10 | NUR ---
REPORT RECEIVED FROM AM NURSE AT BEDSIDE. PT IN STABLE CONDITION. AAOX4. INTRODUCED SELF TO PT. BOARD UPDATED. PT HAS COMPLAINTS OF PAIN. WILL MEDICATE. NO SOB. AFEBRILE. PT IS AMBULATORY. IV SITE L AC 22G SL PATENT AND INTACT. R UA PICC DOUBLE LUMEN RUNNING D5 1/2NS@125ML/HR PATENT AND INTACT. SKIN WARM, DRY, AND NOT INTACT DUE TO A LEFT FOOT WOUND OF THE ANTERIOR FOOT AND ANKLE. BED LOCKED IN LOW POSITION. CALL WEEKS WITHIN REACH. SAFETY PRECAUTION IN PLACE. ALL NEEDS MET AT THIS TIME.
--- NOTE | 2019-05-08 19:40 | NUR ---
MORPHINE GIVEN FOR 11/14 ABDOMINAL PAIN. PT TOLERATED WELL. Addendum: 05/08/19 at 2337 by Frank Farley RN LASIX GIVEN IVP. PT TOLERATED WELL.
[2019-05-08] MEDS: FUROSEMIDE 40 MG/4 ML VIAL IVP SCH (19:41)
--- NOTE | 2019-05-08 20:50 | NUR ---
CATAPRES, PEPCID, AND REGLAN GIVEN PO. BS 135. NO INSULIN COVERAGE NEEDED. PT TOLERATED WELL.
[2019-05-08] MEDS: ALBUMIN HUMAN 25% 100 ML IV SCH (21:49)
--- NOTE | 2019-05-08 21:49 | NUR ---
ALBUMIN HUNG AND RUNNING. PT TOLERATING WELL.
--- NOTE | 2019-05-08 22:42 | NUR ---
APRESOLINE GIVEN PO. MORPHINE GIVEN FOR 9/10 ABDOMINAL PAIN. PT TOLERATED WELL.
[2019-05-09] VITALS: BP 144/87
--- NOTE | 2019-05-09 00:30 | NUR ---
PT SLEEPING COMFORTABLY BUT AROUSABLE. NO S/S OF DISTRESS NOTED. WILL CONTINUE TO MONITOR.
[2019-05-09] MEDS: MORPHINE SULFATE 2 MG/ML SYR IVP PRN ×6 (01:51→20:10)
--- NOTE | 2019-05-09 01:51 | NUR ---
MORPHINE GIVEN FOR 9/10 ABDOMINAL PAIN. PT TOLERATED WELL.
--- NOTE | 2019-05-09 04:15 | NUR ---
PT AWAKE AND ALERT WATCHING SHOWS ON HIS PHONE. NO S/S OF DISTRESS NOTED. WILL CONTINUE TO MONITOR.
[2019-05-09] MEDS: BLOOD GLUCOSE MONITORING 1 DEV DEV FS SCH ×4 (05:25→20:21)
[2019-05-09] MEDS: hydrALAZINE 25 MG TAB PO SCH ×3 (06:01→22:01)
--- NOTE | 2019-05-09 06:01 | NUR ---
APRESOLINE GIVEN PO. BS 164. 2 UNITS OF HUMALOG GIVEN. PT TOLERATED WELL.
[2019-05-09] MEDS: INSULIN LISPRO SLIDING SCALE 100 UNITS/ML VIAL SUBQ PRN ×2 (06:02→20:20)
[2019-05-09 06:20] LABS: BASOPHILS # (AUTO) 0.1 K/uL (0.00-0.22); BASOPHILS % (AUTO) 0.8 % (0.0-2.0); EOSINOPHILS # (AUTO) 0.3 K/uL (0-0.4); HEMATOCRIT 27.1 % (36-52); HEMOGLOBIN 8.8 g/dL (12.0-18.0); LYMPHOCYTES # (AUTO) 1.4 K/uL (2.0-11.5); LYMPHOCYTES % (AUTO) 22.4 % (20.5-51.1); MEAN CORPUSCULAR HEMOGLOBIN 28 pg (27-31); MEAN CORPUSCULAR HGB CONC 32 g/dL (33-37); MEAN CORPUSCULAR VOLUME 86.1 fL (80-94); MONOCYTES # (AUTO) 0.7 K/uL (0.8-1.0); MONOCYTES % (AUTO) 11.3 % (1.7-9.3); NEUTROPHILS % (AUTO) 61.5 % (42.2-75.2); PLATELET COUNT (AUTO) 385 K/uL (140-450); RED BLOOD CELL COUNT(AUTO) 3.14 MIL/uL (4.20-6.10); RED CELL DISTRIBUTION WIDTH 14.6 % (11.6-13.7); WHITE BLOOD COUNT (AUTO) 6.4 K/uL (4.8-10.8)
[2019-05-09 06:27] LABS: BILIRUBIN,URINE NEGATIVE (NEGATIVE); BLOOD, URINE 1+ (NEGATIVE); COLOR,URINE YELLOW (YELLOW); LEUKOCYTE ESTERASE ,URINE NEGATIVE (NEGATIVE); NITRITE, URINE NEGATIVE (NEGATIVE); UGLUCOSE NEGATIVE (NEGATIVE)
[2019-05-09 06:31] LABS: APPEARANCE,URINE SLIGHTLY HAZY (CLEAR)
[2019-05-09 06:45] LABS: ANION GAP 10.9 (8-16); CARBON DIOXIDE 26.7 mmol/L (21-32); CREATININE 2.7 mg/dL (0.6-1.3); POTASSIUM 3.6 mmol/L (3.5-5.1)
--- NOTE | 2019-05-09 06:47 | NUR ---
PT AWAKE AND ALERT WATCHING TV. PT IN STABLE CONDITION.
[2019-05-09 06:52] LABS: ALBUMIN 2.8 g/dL (3.4-5.0); ANION GAP 11.2 (8-16); CARBON DIOXIDE 26.5 mmol/L (21-32); CREATININE 2.7 mg/dL (0.6-1.3); POTASSIUM 3.7 mmol/L (3.5-5.1); TOTAL BILIRUBIN 0.3 mg/dL (0.0-1.0)
[2019-05-09 06:53] LABS: MAGNESIUM 1.7 mg/dL (1.8-2.4); PHOSPHORUS 4.1 mg/dL (2.5-4.9)
[2019-05-09 06:54] LABS: WBC,URINE 0-5 /HPF (0-5)
[2019-05-09 06:55] LABS: URINE AMORPHOUS URATE 1+ /HPF (None Seen)
--- NOTE | 2019-05-09 07:10 | NUR ---
REPORT RECEIVED FROM PM NURSE AT BEDSIDE. AAOX4. INTRODUCED SELF TO PT. BOARD UPDATED. RESPIRATIONS EVEN AND UNLABORED, ROOM AIR. NO SOB. AFEBRILE. PT IS AMBULATORY. IV IN THE L AC 22G SL PATENT AND INTACT. R UA PICC DOUBLE LUMEN RUNNING D5 1/2NS@10ML/HR. PATENT AND INTACT. SKIN WARM, DRY, AND NOT INTACT DUE TO A LEFT FOOT WOUND OF THE ANTERIOR FOOT AND ANKLE. BED LOCKED IN LOW POSITION. CALL WEEKS WITHIN REACH. SAFETY PRECAUTION IN PLACE. PATIENT IS IN CONTACT PREACAUTION FOR AURUS OF THE WOUND. WILL CONTINUE TO MONITOR.
[2019-05-09 08:00] VITALS: BP 145/85
[2019-05-09] MEDS: FUROSEMIDE 40 MG/4 ML VIAL IVP SCH ×2 (08:10→16:40)
[2019-05-09] MEDS: PANTOPRAZOLE 40 MG INJ VIAL IVP SCH (08:10)
[2019-05-09] MEDS: FAMOTIDINE 20 MG TAB PO SCH ×2 (08:10→20:10)
[2019-05-09] MEDS: METOCLOPRAMIDE 10 MG TAB PO SCH ×4 (08:11→20:09)
[2019-05-09] MEDS: amLODIPine 5 MG TAB PO SCH (08:11)
[2019-05-09] MEDS: AMYLASE/LIPASE/PROTEASE 1 CAPDR PO SCH ×3 (08:11→16:40)
[2019-05-09] MEDS: ALBUMIN HUMAN 25% 100 ML IV SCH (08:12)
[2019-05-09] MEDS: cloNIDine 0.1 MG TAB PO SCH ×2 (08:12→20:09)
--- NOTE | 2019-05-09 08:12 | NUR ---
GIVEN MORNING MEDICATIONS PO. GIVEN MORPHINE VIA IVP FOR 8/10 ABDOMINAL PAIN. HANG ALBUMIN VIA IVPB. EXPLAINED TO PATIENT MEDS. PATIENT VERBALIZED UNDERSTANDING. WILL REASSESS
[2019-05-09] MEDS: ENOXAPARIN 30 MG/0.3 ML SYR SUBQ SCH (08:26)
--- NOTE | 2019-05-09 11:06 | NUR ---
PATIENT IS AWAKE, WATCHING TV. DENIES ANY PAIN. BED IN LOW POSITION. CALL LIGHT IS WITHIN REACH. WILL CONTINUE TO MONITOR
--- NOTE | 2019-05-09 11:25 | NUR ---
BLOOD GLUCOSE CHECK: 120. NO INSULIN COVERAGE
--- NOTE | 2019-05-09 12:18 | NUR ---
GIVEN PACREASE AND REGLAN PO. GIVEN MORPHINE VIA IVP FOR 8/10 ABDOMINAL PAIN. EXPLAINED TO PATIENT MEDS. PATIENT VERBALIZED UNDERSTANDING. BED IN LOW POSITION. CALL LIGHT IS WITHIN REACH. WILL CONTINUE TO MONITOR
[2019-05-09 13:25] LABS: CHOL/HDL RATIO 7.5 (1-4.5)
--- NOTE | 2019-05-09 13:54 | NUR ---
PATIENT IS ADVANCED TO CLEAR LIQ DIET. OFFERED PATIENT APPLE JUICE.
--- NOTE | 2019-05-09 14:17 | NUR ---
GIVEN MAG OX FOR MAG LEVEL 1.7. GIVEN HYDRALAZINE FOR HTN. BP IS 157/97, HR 91, O2SAT 97. EXPLAINED TO PATIENT MEDS. PATIENT VERBALIZED UNDERSTANDING. WILL CONTINUE TO MONITOR
--- NOTE | 2019-05-09 15:08 | NUR ---
PATIENT IS AWAKE, ON HIS CELLPHONE. GF AT BEDSIDE. BED IN LOW POSITION. CALL LIGHT IS WITHIN REACH. WILL CONTINUE TO MONITOR
[2019-05-09 16:00] VITALS: BP 152/96
--- NOTE | 2019-05-09 16:34 | NUR ---
VITAL SIGNS TAKEN. BLOOD GLUCOSE IS 132. NO INSULIN COVERAGE.
--- NOTE | 2019-05-09 16:40 | NUR ---
GIVEN REGLAN, PANCREASE PO. GIVEN LASIX IVP. GIVEN MORPHINE FOR PAIN 11/14 ABDOMEN. EXPLAINED TO PATIENT MEDS. PATIENT VERBALIZED UNDERSTANDING. BED IN LOW POSITION. CALL LIGHT IS WITHIN REACH. WILL CONTINUE TO MONITOR
--- NOTE | 2019-05-09 16:56 | NUR ---
PATIENT IS POSITIVE FOR MRSA NARES
--- NOTE | 2019-05-09 19:05 | NUR ---
REPORT RECEIVED FROM AM NURSE AT BEDSIDE. PT IN STABLE CONDITION. AAOX4. INTRODUCED SELF TO PT. BOARD UPDATED. NO COMPLAINTS OF PAIN. NO SOB. AFEBRILE. PT IS AMBULATORY. PT IS CONTACT PRECAUTION FOR MRSA NARES AND STAPH AUREUS OF THE WOUND. IV SITE L AC 22G SL PATENT AND INTACT. R UA PICC DOUBLE LUMEN RUNNING D5 1/2NS@10ML/HR TKO PATENT AND INTACT. SKIN WARM, DRY, AND NOT INTACT DUE TO LEFT FOOT WOUND. BED LOCKED IN LOW POSITION. CALL WEEKS WITHIN REACH. SAFETY PRECAUTION IN PLACE. ALL NEEDS MET AT THIS TIME.
--- NOTE | 2019-05-09 20:10 | NUR ---
CATAPRES, PEPCID, AND REGLAN GIVEN PO. BS 155. 2 UNITS OF HUMALOG GIVEN. MORPHINE GIVEN FOR 8/10 ABDOMINAL PAIN. PT TOLERATED WELL.
--- NOTE | 2019-05-09 22:01 | NUR ---
HYDRALAZINE GIVEN PO. PT TOLERATED WELL.
[2019-05-10] VITALS: BP 157/86
[2019-05-10] MEDS: MORPHINE SULFATE 2 MG/ML SYR IVP PRN ×6 (00:19→20:57)
--- NOTE | 2019-05-10 00:19 | NUR ---
MORPHINE GIVEN FOR 8/10 ABDOMINAL PAIN. PT TOLERATED WELL.
[2019-05-10] MEDS: LORazepam 2 MG/ML VIAL IVP PRN ×2 (02:11→20:57)
--- NOTE | 2019-05-10 02:11 | NUR ---
ATIVAN GIVEN FOR ANXIETY. PT TOLERATED WELL.
--- NOTE | 2019-05-10 03:49 | NUR ---
MORPHINE GIVEN FOR 8/10 ABDOMINAL PAIN. PT TOLERATED WELL.
[2019-05-10] MEDS: BLOOD GLUCOSE MONITORING 1 DEV DEV FS SCH ×4 (05:50→20:46)
[2019-05-10] MEDS: hydrALAZINE 25 MG TAB PO SCH ×3 (06:04→22:50)
[2019-05-10] MEDS: INSULIN LISPRO SLIDING SCALE 100 UNITS/ML VIAL SUBQ PRN ×2 (06:04→20:50)
--- NOTE | 2019-05-10 06:04 | NUR ---
HYDRALAZINE GIVEN PO. BS 164. 2 UNITS OF HUMALOG GIVEN. PT TOLERATED WELL.
--- NOTE | 2019-05-10 06:51 | NUR ---
MORPHINE GIVEN FOR 8/10 ABDOMINAL PAIN. PT TOLERATED WELL.
--- NOTE | 2019-05-10 06:55 | NUR ---
PT AWAKE AND ALERT WATCHING TV. PT IN STABLE CONDITION.
[2019-05-10 06:59] LABS: ALBUMIN 2.7 g/dL (3.4-5.0); ANION GAP 9.8 (8-16); CARBON DIOXIDE 26.7 mmol/L (21-32); CREATININE 2.7 mg/dL (0.6-1.3); POTASSIUM 3.5 mmol/L (3.5-5.1); TOTAL BILIRUBIN 0.3 mg/dL (0.0-1.0)
[2019-05-10 07:01] LABS: BASOPHILS % (AUTO) 0.8 % (0.0-2.0); EOSINOPHILS # (AUTO) 0.3 K/uL (0-0.4); EOSINOPHILS % (AUTO) 4.5 % (0.0-4.0); HEMATOCRIT 25.6 % (36-52); HEMOGLOBIN 8.5 g/dL (12.0-18.0); LYMPHOCYTES # (AUTO) 1.8 K/uL (2.0-11.5); LYMPHOCYTES % (AUTO) 29.9 % (20.5-51.1); MEAN CORPUSCULAR HEMOGLOBIN 28 pg (27-31); MEAN CORPUSCULAR HGB CONC 33 g/dL (33-37); MEAN CORPUSCULAR VOLUME 85.5 fL (80-94); MONOCYTES # (AUTO) 0.8 K/uL (0.8-1.0); MONOCYTES % (AUTO) 12.9 % (1.7-9.3); NEUTROPHILS # (AUTO) 3.2 K/uL (1.8-7.7); NEUTROPHILS % (AUTO) 51.9 % (42.2-75.2); PLATELET COUNT (AUTO) 361 K/uL (140-450); RED CELL DISTRIBUTION WIDTH 14.8 % (11.6-13.7); WHITE BLOOD COUNT (AUTO) 6.2 K/uL (4.8-10.8)
--- NOTE | 2019-05-10 07:05 | NUR ---
RECEIVE BEDSIDE REPORT FROM NIGHT NURSE, PT IS STABLE, AAOX4, ERIC PICC LINE RUNNING D51/2NORMAL SALINE AT 10 ML/H. LEFT FOOT BANDAGE IN PLACE, NON-PITTING EDEMA LOWER EXTREMITIES, SAFETY MEASURES IN PLACE, CALL LIGHT WITHIN REACH.
[2019-05-10 08:00] VITALS: BP 148/87
[2019-05-10] MEDS: METOCLOPRAMIDE 10 MG TAB PO SCH ×4 (08:35→20:45)
[2019-05-10] MEDS: cloNIDine 0.1 MG TAB PO SCH ×2 (08:35→20:45)
[2019-05-10] MEDS: FAMOTIDINE 20 MG TAB PO SCH ×2 (08:36→20:46)
[2019-05-10] MEDS: PANTOPRAZOLE 40 MG INJ VIAL IVP SCH (08:36)
[2019-05-10] MEDS: amLODIPine 5 MG TAB PO SCH (08:36)
[2019-05-10] MEDS: AMYLASE/LIPASE/PROTEASE 1 CAPDR PO SCH ×3 (08:36→18:21)
[2019-05-10] MEDS: FUROSEMIDE 40 MG/4 ML VIAL IVP SCH ×2 (08:37→18:21)
[2019-05-10] MEDS: MUPIROCIN CA NASAL 2% 1GM TUBE NS SCH (08:37)
--- NOTE | 2019-05-10 08:37 | NUR ---
GAVE PT ORDERED MEDICATION, EDUCATION ON SIDE EFFECTS GIVEN, PT TOLERATED WELL, PT IS STABLE, CALL LIGHT WITHIN REACH.
[2019-05-10] MEDS: ENOXAPARIN 30 MG/0.3 ML SYR SUBQ SCH (08:38)
[2019-05-10] MEDS: CHLORHEXADINE GLUC 2% CLOTH TP SCH (08:58)
--- NOTE | 2019-05-10 10:00 | NUR ---
PT INFORMED WOUND CARE NURSE HE WOULD CONTINUE TO FOLLOW UP WITH HIS SURGEON DR. OLMEDO AFTER DISCHARGE FOR WOUND CARE. PT STATED HE DOES HIS OWN WOUND CARE AND FOLLOWS UP ON DOCTOR APPOINTMENT.
--- NOTE | 2019-05-10 10:45 | NUR ---
WOUND CARE EVALUATION NOTE: WOUND CARED ASSESSMENT DONE TO PT. 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 PER PT. SURGERY WAS DONE AT [facility] PT. ALSO FOLLOW DR. ZACK SCOTT FOR LEFT SURGICAL WOUNDS OUT PATIENT CLINIC. WOUND CARE TEACHING AND INSTRUCTIONS PROVIDES, PT. VERBALIZES UNDERSTANDING. PER PT. HE IS ABLE TO PERFORM WOUND CARE BY HIMSELF.ALL QUESTIONS ANSWERED. -RIGHT FIRST RAY OLD HEALED SCAR WITH THICK SCAB TO MEDIAL FOOT, -RIGHT ANTERIOR FOOT SURGICAL WOUND 5X8X0.3CM WOUND BED 100% GRANULATING TISSUE WITH TENDON EXPOSED, TENDON SHINNY AND SMOOTH, WOUND BED MOIST NO ODOR, WOUND EDGE FLAT WITH SUE WOUND SKIN INTACT. -RIGHT POSTERIOR ACHILLES' HEEL SURGICAL WOUND 5X4X0.1CM WOUND BED 100% GRANULATING TISSUE, WOUND BED MOIST NO ODOR, WOUND EDGE FLAT WITH SUE WOUND SKIN INTACT. RECOMMENDATIONS: -CONTINUE TO FOLLOW UP OUT PATIENT WOUND CARE CLINIC AND SURGEON IN ONE WEEK UPON DISCHARGED -CLEANSE SURGICAL WOUNDS TO LEFT FOOT WITH NS, PAT DRY, APPLY ADAPTIC DRESSING, COVER WITH DRY DRESSING, WRAP WITH KERLIX ROLLS AND TEJA BANDAGE QD AND PRN IF SOILING. -MAY DISCHARGED PT. WITH WOUND CARE SUPPLIES
--- NOTE | 2019-05-10 11:08 | NUR ---
ADMINISTER MORPHINE FOR SEVERE ABDOMINAL PAIN OF 8/10, PT EDUCATION GIVEN, PT TOLERATED WELL, NO SIGNS OF RESPIRATORY DISTRESS NOTED, CALL LIGHT WITHIN REACH.
--- NOTE | 2019-05-10 11:17 | NUR ---
Swage Toolsetter Note: Basic Screen: Yes High Risk DC Screen Deans: SANDEE TURPIN [place] Relationship: SIGNIFICANT OTHER Pre-Admission Living Arrangements: Lives with Other Prior ADL Independent Current Home Health Name/Tel: N/A Current DME/02 Name/Tel: N/A Current Hospice Name/Tel: N/A Current Dialysis Name/Tel: N/A Healthcare Decision Maker: Patient Advance Directive No - REFUSED Physician Orders for Life Sustaining Treatment Form No Information Taught: Advance Directive Person Taught: Patient Teaching Tools: Verbal Factors Affecting Learning: None Participation Level: Refused Evaluation: Verbalizes Understanding Needs Additional Education: No Discipline: Case Mgt/Social Svcs Tentative Discharge Plan/Destination: No Needs Identified Will require assistance post discharge: No Referred to Belt Conveyor Drier: No Tentative Discharge Plan Summary: Patient is a 33-year-old male admitted for acute pancreatitis. Patient has PMHX of diabetes, hypertension, GERD, recurrent pancreatitis, and gastroparesis. Patient was admitted from home where he lives with jessika. SW met with patient at bedside to verify demographics. Patient reports no history of mental health and no history of substance abuse. Tentative discharge plan is to return home. No further needs identified. Signature: JEFFERY Dillard Date: May 10, 2019 Time: 11:16
[2019-05-10] MEDS ORDERED: POTASSIUM CHLORIDE 10 MEQ TABER PO SCH (14:00)
--- NOTE | 2019-05-10 14:18 | NUR ---
ADMINISTER MORPHINE FOR ABDOMINAL PAIN OF 8/10, PT STATES IT IS SEVERE AND WANTS SOME RELIEF, SIDE EFFECT EDUCATION GIVEN, PT VERBALIZED UNDERSTANDING, PT IS STABLE, CALL LIGHT WITHIN REACH.
--- NOTE | 2019-05-10 14:21 | NUR ---
DISCHARGE PLANNING: A 33 Y/O MALE PATIENT FROM HOME, WHO CAME IN DUE TO ABDOMINAL PAIN. PAST MEDICAL HISTORY INCLUDE DIABETES, HTN, GERD, RECURRENT PANCREATITIS AND GASTROPARESIS. INITIAL DIAGNOSIS OF PANCREATITIS. WBC 6.2, H/H 8.5/25.6, NA/K 136/3.5, BUN/CREA 36/2.7, ALB 2.7. MRSA NARES POSITIVE. ON BACTROBAN AND CHLORHEXADINE. DC PLAN TO HOME ONCE STABLE. Addendum: 05/11/19 at 1034 by Regina Givens CM DC PLANNING SEEN BY PROGRAM EVALUATION CONSULTANT FOR EVA, RENAL ULTRASOUND SHOWED BILATERAL KIDNEY ENLARGED, DR JORDAN RECOMMENDED OUTPATIENT RENAL FOLLOW UP . ADVANCED DIET TO FULL LIQUID DIET TOLERATED WELL LIPASE WNL. DC PLAN TO GO HOME AND F/U WITH PROGRAM EVALUATION CONSULTANT. CM TO FOLLOW.
--- NOTE | 2019-05-10 15:12 | NUR ---
PCP Appointment: REESE contacted Rhonda from Dr. Maria T Manrique's office [phone]. REESE arranged for hospital follow up appointment to be on 05/17/2019 at 1045 @ [id number] [place] [address]. Appointment slip left in chart to be given at discharge. No further needs identified.
[2019-05-10] MEDS ORDERED: KETOROLAC 15 MG/ML VIAL IVP PRN (15:55)
[2019-05-10 16:00] VITALS: BP 150/91
--- NOTE | 2019-05-10 16:50 | NUR ---
PT REFUSED FLU VACCINE.
--- NOTE | 2019-05-10 16:51 | NUR ---
SALLIE Shaikh remained to follow up with patient and family about flu shot.
--- NOTE | 2019-05-10 19:18 | NUR ---
GAVE BEDSIDE REPORT TO NIGHT NURSE FOR CONTINUITY OF CARE, PT IS STABLE.
--- NOTE | 2019-05-10 19:19 | NUR ---
RECEIVED BEDSIDE REPORT FROM DAY SHIFT NURSE. PATIENT IS AWAKE AND ALERT. RESPIRATION EVEN UNLABORED ON ROOM AIR. NO DISTRESS NOTED. SKIN IS WARM AND DRY. IV PATENT AND INTACT. PLAN OF CARE WAS DISCUSSED. ALL SAFETY MEASURES IN PLACE. BED IS AT LOW POSITION. CALL LIGHT WITHIN REACH AND VERBALIZES ITS USE. WILL CONTINUE TO MONITOR.
--- NOTE | 2019-05-10 20:05 | NUR ---
INITIAL ASSESSMENT DONE. VITALS WERE TAKEN. PATIENT RIGHT UPPER ARM PICC LINE DOUBLE LUMEN NOTED. FLUSHING WELL. WILL CONTINUE TO MONITOR.
--- NOTE | 2019-05-10 20:57 | NUR ---
ALL SCHEDULED MEDS WERE GIVEN PER ORDER. PATIENT COMPLAINED OF 10/10 LEG PAIN AND AGITATED. PRN PAIN MED AND ATIVAN ADMINISTERED PER ORDER. WILL CONTINUE TO MONITOR.
--- NOTE | 2019-05-10 22:11 | NUR ---
CHECKED PATIENT. PATIENT IN BED ON HIS PHONE. RESPIRATION EVEN UNLABORED ON ROOM AIR. NO DISTRESS NOTED. WILL CONTINUE TO MONITOR.
--- NOTE | 2019-05-10 23:59 | NUR ---
VITALS WERE TAKEN. PATIENT IN STABLE CONDITION. NO DISTRESS NOTED. WILL CONTINUE TO MONITOR.
[2019-05-11] VITALS: BP 140/80
[2019-05-11] MEDS: MORPHINE SULFATE 2 MG/ML SYR IVP PRN ×4 (00:57→13:50)
--- NOTE | 2019-05-11 00:57 | NUR ---
PATIENT COMPLAINED OF PAIN 11/14. PRN PAIN MED ADMINISTERED PER ORDER. WILL CONTINUE TO MONITOR.
--- NOTE | 2019-05-11 01:30 | NUR ---
CHECKED PATIENT. PATIENT BEDSIDE RAILS DOWN. EXPLAINED RISK AND BENEFITS X2 STILL REFUSED TO PUT THE SIDE RAILS UP. WILL CONTINUE TO MONITOR.
--- NOTE | 2019-05-11 02:10 | NUR ---
CHECKED PATIENT. PATIENT SLEEPING RESPIRATION EVEN UNLABORED ON ROOM AIR. NO DISTRESS NOTED. WILL CONTINUE TO MONITOR.
--- NOTE | 2019-05-11 03:56 | NUR ---
CHECKED PATIENT. PATIENT SLEEPING RESPIRATION EVEN UNLABORED ON ROOM AIR. NO DISTRESS NOTED. WILL CONTINUE TO MONITOR.
--- NOTE | 2019-05-11 05:15 | NUR ---
PATIENT WOKE UP FROM PAIN 8/10. PRN PAIN MED ADMINISTERED PER ORDER. WILL CONTINUE TO MONITOR.
[2019-05-11] MEDS: hydrALAZINE 25 MG TAB PO SCH ×2 (06:14→15:00)
[2019-05-11] MEDS: BLOOD GLUCOSE MONITORING 1 DEV DEV FS SCH ×2 (06:16→11:56)
[2019-05-11 06:51] LABS: BASOPHILS # (AUTO) 0.1 K/uL (0.00-0.22); BASOPHILS % (AUTO) 0.8 % (0.0-2.0); EOSINOPHILS # (AUTO) 0.3 K/uL (0-0.4); EOSINOPHILS % (AUTO) 4.3 % (0.0-4.0); HEMATOCRIT 26.9 % (36-52); LYMPHOCYTES % (AUTO) 31.1 % (20.5-51.1); MEAN CORPUSCULAR HEMOGLOBIN 29 pg (27-31); MEAN CORPUSCULAR HGB CONC 34 g/dL (33-37); MEAN CORPUSCULAR VOLUME 85.7 fL (80-94); MONOCYTES # (AUTO) 0.7 K/uL (0.8-1.0); MONOCYTES % (AUTO) 11.1 % (1.7-9.3); NEUTROPHILS # (AUTO) 3.4 K/uL (1.8-7.7); NEUTROPHILS % (AUTO) 52.7 % (42.2-75.2); PLATELET COUNT (AUTO) 388 K/uL (140-450); RED BLOOD CELL COUNT(AUTO) 3.14 MIL/uL (4.20-6.10); RED CELL DISTRIBUTION WIDTH 14.8 % (11.6-13.7); WHITE BLOOD COUNT (AUTO) 6.5 K/uL (4.8-10.8)
[2019-05-11 06:57] LABS: ANION GAP 13.4 (8-16); CARBON DIOXIDE 27.7 mmol/L (21-32); CREATININE 2.8 mg/dL (0.6-1.3); POTASSIUM 4.1 mmol/L (3.5-5.1)
--- NOTE | 2019-05-11 07:21 | NUR ---
ENDORSED PATIENT TO DAY SHIFT NURSE. PATIENT IN STABLE CONDITION.
--- NOTE | 2019-05-11 07:23 | NUR ---
RECEIVED BEDSIDE REPORT FROM TAKER OFF HEMP FIBER NURSE FOR CONTINUITY OF CARE. PT AWAKE AND RESTING ON BED AT THIS TIME. RESPIRATION EVEN AND UNLABORED ON RA. DENIED PAIN, SOB, AND DIZZINESS. NO SIGNS OF DISTRESS NOTED. ERIC PICC LINE DOUBLE LUMEN IN PLACE, CLEAN AND INTACT, SL AT THIS TIME. L FOOT WOUND NOTED, DRESSING CLEAN AND DRY. PT IS CONTINENT. DISCUSSED PLAN OF CARE WITH PT AND PT SAID OK. SAFETY MEASURES IN PLACE. BED IN LOW POSITION AND CALL LIGHT WITHIN REACH. INSTRUCTED PT TO USE THE CALL LIGHT FOR ANY ASSISTANCE AND PT WAS AWARE.
[2019-05-11 08:00] VITALS: BP 158/89
[2019-05-11] MEDS: ENOXAPARIN 30 MG/0.3 ML SYR SUBQ SCH (08:18)
[2019-05-11] MEDS: MUPIROCIN CA NASAL 2% 1GM TUBE NS SCH (08:20)
[2019-05-11] MEDS: PANTOPRAZOLE 40 MG INJ VIAL IVP SCH (08:20)
[2019-05-11] MEDS: FUROSEMIDE 40 MG/4 ML VIAL IVP SCH (08:21)
[2019-05-11] MEDS: FAMOTIDINE 20 MG TAB PO SCH (08:21)
[2019-05-11] MEDS: AMYLASE/LIPASE/PROTEASE 1 CAPDR PO SCH ×2 (08:22→12:39)
[2019-05-11] MEDS: METOCLOPRAMIDE 10 MG TAB PO SCH ×2 (08:22→12:39)
[2019-05-11] MEDS: cloNIDine 0.1 MG TAB PO SCH (08:22)
[2019-05-11] MEDS: amLODIPine 5 MG TAB PO SCH (08:23)
[2019-05-11] MEDS: CHLORHEXADINE GLUC 2% CLOTH TP SCH (08:24)
--- NOTE | 2019-05-11 08:24 | NUR ---
UNABLE TO SCAN WRIST BAND, NO WRIST BAND ON PT. PER PT, THE WRIST BAND FELL OFF. CALLED ADMINISTRATION AND SPOKE WITH SANJU FOR A NEW WRIST BAND. CHECKED BP PRIOR TO MEDS ADMINISTRATION, BP 158/89, PULSE 94. ADMINISTERED MEDS PER MD ORDER, MEDS EDUCATION PROVIDED TO PT AND PT VERBALIZED UNDERSTANDING. PT TOLERATED MEDS WELL. PT IS STANDING UP BY BEDSIDE. DENIED PAIN, SOB AND DIZZINESS. NO SIGNS OF DISTRESS NOTED. SAFETY MEASURES IN PLACE. BED IN LOW POSITION AND CALL LIGHT WITHIN REACH. INSTRUCTED PT TO USE THE CALL LIGHT FOR ANY ASSISTANCE AND PT WAS AWARE.
--- NOTE | 2019-05-11 08:30 | NUR ---
RECEIVED WRIST BAND AND VERIFIED INFORMATION WITH PT, APPLIED WRIST BAND ON L HAND.
[2019-05-11 08:53] LABS: URINE TOTAL PROTEIN 159.5 mg/dL (0-12)
--- NOTE | 2019-05-11 09:55 | NUR ---
REASSESSED BP AND RECEIVED 134/78 PULSE 83. PT COMPLAINED HE HAS 8/10 PAIN AROUND HIS ABD. MEDICATED WITH PRN PAIN MED PER MD ORDER, MED ED PROVIDED AND PT TOLERATED WELL. PT IS SITTING UP ON EDGE OF BED AND PLAYING WITH HIS PHONE. NO SIGNS OF DISTRESS NOTED. EXPLAINED TO PT THAT URINE SAMPLE IS NEEDED AND PROVIDED URINE SAMPLE CUP FOR URINATION, PT WAS AWARE AND SAID "OK, WHEN I HAVE TO GO, I WILL PEE IN IT." SAFETY MEASURES IN PLACE. BED IN LOW POSITION AND CALL LIGHT WITHIN REACH. INSTRUCTED PT TO USE THE CALL LIGHT FOR ANY ASSISTANCE AND PT WAS AWARE.
[2019-05-11 09:56] VITALS: BP 134/78
--- NOTE | 2019-05-11 11:56 | NUR ---
CHECKED BLOOD GLUCOSE AND RECEIVED 142, NO INSULIN COVERAGE NEEDED. PT AWAKE AND STANDING UP HIS ROOM AND WATCHING HIS PHONE. DENIED PAIN, DIZZINESS AND SOB. NO SIGNS OF DISTRESS NOTED. SAFETY MEASURES IN PLACE.
--- NOTE | 2019-05-11 12:39 | NUR ---
ADMINISTERED SCHEDULED MEDS PER MD ORDER, MEDS EDUCATION PROVIDED TO PT AND PT SAID OK. PT IS STANDING UP BY BEDSIDE AND PLAYING WITH HIS PHONE. DENIED PAIN, SOB, AND DIZZINESS. NO SIGNS OF DISTRESS NOTED. SAFETY MEASURES IN PLACE.
[2019-05-11] MEDS ORDERED: NON ADHERENT DRESSING TP SCH (13:00)
--- NOTE | 2019-05-11 13:50 | NUR ---
PERFORMED WOUND CARE, CLEANSED WOUND WITH NS AND PAT DRY. APPLIED ADAPTIC DRESSING AND DRY DRESSING, WRAP WITH KERLIX ROLLS AND TEJA BANDAGE WOUND. WOUND CARE EDUCATION PROVIDED AND PT SAID OK. PT TOLERATED WELL. PT COMPLAINED 8/10 PAIN ON HIS ABDOMINAL AREA, MEDICATED WITH PRN PAIN MED MORPHINE, MED ED PROVIDED, PT AWAKE AND RESTING ON BED. NO SIGNS OF DISTRESS NOTE. SAFETY MEASURES IN PLACE.
[2019-05-11] MEDS ORDERED: [UNRECOGNIZED DRUG - CODE] PO (14:26)
[2019-05-11] MEDS ORDERED: RANI150T8 PO (14:26)
[2019-05-11] MEDS ORDERED: CLON0.2T43 PO (14:26)
[2019-05-11] MEDS ORDERED: AMLO5TAB PO (14:26)
[2019-05-11] MEDS ORDERED: HYDR100T79 PO (14:26)
[2019-05-11] MEDS ORDERED: FURO-570 PO (14:26)
[2019-05-11] MEDS ORDERED: METO-485 PO (14:26)
--- NOTE | 2019-05-11 14:35 | NUR ---
INFORMED PT THAT HE WILL BE DC TODAY AND PT WAS AWARE AND SAID, "OK, JUST LET ME KNOW AND I WILL CALL [facility]. I WANT TO GO AROUND 3 MANDI." WILL PREPARE DC DOCUMENT. PT AWAKE AND RESTING ON BED. NO SIGNS OF DISTRESS NOTED. SAFETY MEASURES IN PLACE.
--- NOTE | 2019-05-11 15:00 | NUR ---
WOUND PICTURES TAKEN. WOUND CARE EDUCATION PROVIDED TO PT AND PT VERBALIZED UNDERSTANDING. NO SIGNS OF DISTRESS NOTED. SAFETY MEASURES IN PLACE.
--- NOTE | 2019-05-11 15:50 | NUR ---
PT AWAKE AND PLAYING ON HIS PHONE. PER PT, HE WILL CALL THE [facility] TO PICK HIM. NO SIGNS OF DISTRESS NOTED. SAFETY MEASURES IN PLACE.
--- NOTE | 2019-05-11 16:50 | NUR ---
DISCHARGE INSTRUCTION PROVIDED TO PT AT BEDSIDE. EDUCATED PT ON FOLLOW UP WITH MD, SEEK MEDICAL HELP IN CASE OF MEDICAL EMERGENCY, DISEASE MANAGEMENT, WOUND CARE, MEDICATIONS REGIMEN AND SIDE EFFECT. ANSWERED ALL PT'S QUESTIONS, PT VERBALIZED UNDERSTANDING. PROVIDED APPT REMINDER TO PT AND WOUND CARE SUPPLIES. PT REFUSED FLU AND PNA VACCINES, EDUCATION PROVIDED AND PT INSISTED NOT WANT THEM. REMOVED ALL ARM BANDS, PICC LINE AND IV. IV CANNULA INTACT AND NO BLEEDING ON IV SITE. PT CHANGED INTO HIS OWN CLOTHES. PT CHECKED ALL THE CABINETS AND TOOK ALL HIS BELONGINGS HOME. PT IS ALERT AND ORIENTED X4, ABLE TO COMMUNICATE APPROPRIATELY. LEGAL SERVICES PROFESSIONAL ESCORTED PT TO FRONT LOBBY WITH WHEELCHAIR. PT IS GOING TO BE DC HOME AT THIS TIME. PT IS IN STABLE CONDITION.
== END 2019-05-11 16:50 | disposition home or self-care (01) | DRG 282 ==
LOC: MED 09:12 → MTU 14:04
PROVIDERS: ADMIT Internal Medicine Pulmonary Disease; ATTEND Internal Medicine Pulmonary Disease
PROC: 02HV33Z Insertion of Infusion Device into Superior Vena Cava, Percutaneous Approach (ICD-10-PCS; principal; 2019-05-07)
PROC: B548ZZA Ultrasonography of Superior Vena Cava, Guidance (ICD-10-PCS; 2019-05-07)
DX: K85.00 Idiopathic acute pancreatitis without necrosis or infection (principal); N17.9 Acute kidney failure, unspecified; K31.84 Gastroparesis; E66.01 Morbid (severe) obesity due to excess calories; E11.43 Type 2 diabetes mellitus with diabetic autonomic (poly)neuropathy; E11.65 Type 2 diabetes mellitus with hyperglycemia; E87.70 Fluid overload, unspecified; F12.10 Cannabis abuse, uncomplicated; K21.9 Gastro-esophageal reflux disease without esophagitis; E88.09 Other disorders of plasma-protein metabolism, not elsewhere classified; I12.9 Hypertensive chronic kidney disease with stage 1 through stage 4 chronic kidney disease, or unspecified chronic kidney disease; N18.9 Chronic kidney disease, unspecified; Z79.899 Other long term (current) drug therapy; Z89.422 Acquired absence of other left toe(s); Z68.42 Body mass index [BMI] 45.0-49.9, adult
CPT/HCPCS: 36415; 71045; 76770; 80048; 80053; 80305; 81001; 82565; 82570; 82948; 83690; 83735; 84100; 85025; 87081; 96372; 99285; C1751; C9113; J0360; J1650; J1815; J1885; J1940; J2060; J2270; J2405; J8597; P9046; Q0092

== ENCOUNTER 2019-06-14 00:55 | Inpatient (IN) | payer OTHER ==
[~2019-06-14] VITALS: Ht 185.4 cm; Wt 145.1 kg
--- NOTE | 2019-06-14 00:56 | NUR ---
33 YO MALE BIBA CO ABD PAIN AND VOMITING. PT STATES PAIN IS 10/10 IN UPPER EPIGASTRIC AREA. PT REFUSED ABD ASSESSMENT. PT HYPERTENSIVE AND REFUSES AUTOMATIC BP CUFF TO BE ON HIS ARM.
--- NOTE | 2019-06-14 00:56 | NUR ---
PT MARTHA ALS. TAKEN TO BED 7
[2019-06-14 01:03] VITALS: BP 219/146
[2019-06-14] MEDS ORDERED: NACL 0.9% 500 ML IV ONE (01:06)
[2019-06-14] MEDS ORDERED: ONDANSETRON 4 MG/2 ML VIAL IVP ONE (01:10)
[2019-06-14] MEDS ORDERED: KETOROLAC 30 MG/ML VIAL IVP ONE (01:10)
[2019-06-14 01:21] LABS: BASOPHILS % (AUTO) 0.4 % (0.0-2.0); EOSINOPHILS % (AUTO) 0.2 % (0.0-4.0); HEMATOCRIT 31.4 % (36-52); HEMOGLOBIN 10.4 g/dL (12.0-18.0); LYMPHOCYTES # (AUTO) 1.2 K/uL (2.0-11.5); LYMPHOCYTES % (AUTO) 14.6 % (20.5-51.1); MEAN CORPUSCULAR HEMOGLOBIN 28 pg (27-31); MEAN CORPUSCULAR HGB CONC 33 g/dL (33-37); MEAN CORPUSCULAR VOLUME 85.8 fL (80-94); MONOCYTES # (AUTO) 0.5 K/uL (0.8-1.0); MONOCYTES % (AUTO) 6.1 % (1.7-9.3); NEUTROPHILS # (AUTO) 6.5 K/uL (1.8-7.7); NEUTROPHILS % (AUTO) 78.7 % (42.2-75.2); PLATELET COUNT (AUTO) 385 K/uL (140-450); RED BLOOD CELL COUNT(AUTO) 3.66 MIL/uL (4.20-6.10); RED CELL DISTRIBUTION WIDTH 16.1 % (11.6-13.7); WHITE BLOOD COUNT (AUTO) 8.2 K/uL (4.8-10.8)
--- NOTE | 2019-06-14 01:32 | NUR ---
Dr. Brower examining patient.
[2019-06-14] MEDS ORDERED: MORPHINE SULFATE 2 MG/ML SYR IVP ONE ×2 (01:40→03:35)
[2019-06-14 01:43] LABS: ALBUMIN 3.4 g/dL (3.4-5.0); ANION GAP 14.5 (8-16); CARBON DIOXIDE 25.7 mmol/L (21-32); CREATININE 3.3 mg/dL (0.6-1.3); POTASSIUM 4.2 mmol/L (3.5-5.1); TOTAL BILIRUBIN 0.4 mg/dL (0.0-1.0)
[2019-06-14 02:09] LABS: BARBITURATE, URINE NEG. ng/ml (NEG <=200); BENZODIAZEPINE, URINE NEG. ng/mL (NEG <=200); CANNABINOID, URINE POS. ng/mL (NEG <=50); COCAINE, URINE NEG. ng/mL (NEG <=300); OPIATE, URINE NEG. ng/mL (NEG <=2000); PHENCYCLIDINE SCREEN,URINE NEG. ng/mL (NEG <=25)
--- NOTE | 2019-06-14 02:12 | NUR ---
PT REFUSED CT SCAN
--- NOTE | 2019-06-14 02:15 | NUR ---
PATIENT REFUSING TO BE ON ANY MONITORING. NO CHEST LEADS, O2 AND NO BP
--- NOTE | 2019-06-14 03:06 | NUR ---
PT STATES THAT HIS PAIN IS STILL 8/10. PT STANDING NEXT TO HIS BED BECAUSE IT SAYS IT HELPS HIS PAIN. REQUESTING MORE PAIN MEDS. ERMD MADE AWARE.
--- NOTE | 2019-06-14 04:15 | NUR ---
PT PACING IN ROOM. A/O X4. PAIN LEVEL IS 7/10. NO VOMITING AT THIS TIME.
--- NOTE | 2019-06-14 06:31 | NUR ---
PT PACING IN ROOM REQUESTING PAIN MEDICATION. PAIN 11/14. PAGED DR DAILEY. AWAITING CALL BACK.
--- NOTE | 2019-06-14 07:15 | NUR ---
PT ADMITTED AT THIS TIME FROM ER, COMING FROM HOME. DX IS PANCREATITIS. AAOX4, COMPLAINS OF PAIN OF [address] TIPTON PAGED FOR ADMIT ORDERS AND PAIN MEDICATION ORDER. SKIN INTACT. RESPIRATIONS EVEN AND UNLABORED ON ROOM AIR. IV IN PLACE PATENT AND ASYMPTOMATIC SALINE LOCKED IN R WRIST 22G. REGULAR DIET. PT REFUSED CT IN ER. SAFETY MEASURES IN PLACE, CALL LIGHT WITHIN REACH, BED IN LOW POSITION. WILL CONTINUE TO MONITOR.
--- NOTE | 2019-06-14 07:22 | NUR ---
Patient will be admitted to care of DR JIMENEZ. Admited to [facility]. Will go to room 113. Belongings list completed. Report to SALLIE HARDWICK.
[2019-06-14 08:00] VITALS: BP 189/90
[2019-06-14] MEDS ORDERED: INSULIN LISPRO SLIDING SCALE 100 UNITS/ML VIAL SUBQ PRN (08:40)
[2019-06-14] MEDS ORDERED: DEXTROSE 50% 50 ML SYR IVP PRN (08:40)
[2019-06-14] MEDS: HYDROmorphone 1 MG/ML AMP IVP PRN ×4 (08:49→21:55)
[2019-06-14] MEDS: ENOXAPARIN 40 MG/0.4 ML SYR SUBQ SCH (08:55)
--- NOTE | 2019-06-14 09:11 | NUR ---
PT IS ALERT, AWAKE, AND REPORTS PAIN IN LEFT UPPER QUADRANT, MEDICATION WAS ADMINISTERED PER ORDER. TOLERATED MEDICATIONS WELL. SAFETY MEASURES IN PLACE, CALL LIGHT WITHIN REACH, AND WILL CONTINUE TO MONITOR
[2019-06-14] MEDS ORDERED: hydrALAZINE 20 MG/ML VIAL IVP PRN (09:35)
[2019-06-14] MEDS: NACL 0.9% 1,000 ML IV SCH ×2 (11:00→18:17)
[2019-06-14] MEDS: BLOOD GLUCOSE MONITORING 1 DEV DEV FS SCH ×4 (11:30→21:02)
--- NOTE | 2019-06-14 13:41 | NUR ---
MEDICATIONS ADMINISTERED PER ORDER. PT IS ALERT AND WALKING AROUND THE ROOM IN ORDER TO RELIEVE PAIN WHICH IS REPORTED 8/10. MEDICATION TOLERATED WELL, SAFETY MEASURES IN PLACE, CALL LIGHT WITHIN REACH, AND WILL CONTINUE TO MONITOR.
--- NOTE | 2019-06-14 14:32 | NUR ---
DISCHARGE PLANNING 33 y/o male pt admitted for pancreatitis, nausea and vomiting. Pt with hx of DM and dx during this admission with acute kidney injury. BP 130/36, temp 97.5, WBC 8.2, Hgb 10.4. Pt receiving IV fluids and currently NPO. DC plan pending on needs identified at the time of DC. SW/CM will continue following up as needed. Sheila Deutsch, PORT PURSER/CM
[2019-06-14 16:00] VITALS: BP 189/105
--- NOTE | 2019-06-14 16:09 | NUR ---
PATIENT HAS BEEN SCREENED AND CATEGORIZED MODERATE NUTRITION RISK. PATIENT WILL BE SEEN WITHIN 3-5 DAYS OF ADMISSION. 06/16/19 06/18/[address]
--- NOTE | 2019-06-14 16:40 | NUR ---
PT IS ALERT AND SITTING IN BED WITH FAMILY MEMBER AT BEDSIDE. NO MEDICATIONS ADMINISTERED PER PARAMETERS. SAFETY MEASURES IN PLACE, CALL LIGHT WITHIN REACH, AND WILL CONTINUE TO MONITOR.
--- NOTE | 2019-06-14 17:46 | NUR ---
PT ALERT AND WALKING AROUND ROOM WITH FAMILY AT BEDSIDE. REPORTS OF 8/10 ABD PAIN AND REQUESTED PAIN MEDICATION. MEDICATION ADMINISTERED PER ORDERS AND TOLERATED WELL. SAFETY MEASURES IN PLACE, CALL LIGHT WITHIN REACH, AND WILL CONTINUE TO MONITOR.
--- NOTE | 2019-06-14 18:55 | NUR ---
PICTURE TAKEN OF PTS LEFT FOOT DIABETIC ULCER AND PLACED IN CHART. BLOOD PRESSURE REASSESSED AFTER GIVING HYDRALIZINE. PT DENIES PAIN AT THIS TIME. RESPIRATIONS EVEN AND UNLABORED ON ROOM AIR. SAFETY MEASURES IN PLACE, CALL LIGHT WITHIN REACH. WILL CONTINUE TO MONITOR.
--- NOTE | 2019-06-14 19:15 | NUR ---
PT ENDORSED TO NIGHT NURSE FOR CONTINUITY OF CARE.
--- NOTE | 2019-06-14 19:16 | NUR ---
REPORT RECEIVED FROM AM NURSE AT BEDSIDE. PT IN STABLE CONDITION. AAOX4. INTRODUCED SELF TO PT. BOARD UPDATED. PT HAS COMPLAINTS OF PAIN. WILL MEDICATE. NO SOB. AFEBRILE. PT IS AMBULATORY. IV SITE R WRIST 22G RUNNING NS@100ML/HR PATENT AND INTACT. SKIN WARM, DRY, AND NOT INTACT DUE TO A DIABETIC ULCER ON THE LEFT FOOT ANTERIOR AND POSTERIOR. BED LOCKED IN LOW POSITION. CALL WEEKS WITHIN REACH. SAFETY PRECAUTION IN PLACE. ALL NEEDS MET AT THIS TIME.
[2019-06-14] MEDS ORDERED: ZOLPIDEM 10 MG TAB PO PRN (21:00)
--- NOTE | 2019-06-14 21:02 | NUR ---
BS 134. NO INSULIN COVERAGE NEEDED.
--- NOTE | 2019-06-14 21:55 | NUR ---
DILAUDID GIVEN FOR 9/10 ABDOMINAL PAIN. PT TOLERATED WELL.
[2019-06-14] MEDS ORDERED: cloNIDine 0.1 MG TAB PO SCH (23:35)
--- NOTE | 2019-06-14 23:35 | NUR ---
MD CALLED BACK DUE TO PT BLOOD PRESSURE 195/115. MD ORDERED CLONDINE 0.2MG PO NOW. CLONIDINE 0.1MG PO Q6H PRN FOR HIGH BLOOD PRESSURE. AND HYDRALAZINE 10 MG IVP Q8H PRN FOR SBP >160 OR DBP >105 CHANGED TO Q4H PRN. TORB.
--- NOTE | 2019-06-14 23:50 | NUR ---
CATAPRES GIVEN FOR A BLOOD PRESSURE OF 196/115. PT TOLERATED WELL.
[2019-06-15] VITALS: BP 196/115
--- NOTE | 2019-06-15 01:20 | NUR ---
BLOOD PRESSURE REASSESSED. 147/115. NO S/S OF DISTRESS NOTED.
[2019-06-15] MEDS: HYDROmorphone 1 MG/ML AMP IVP PRN ×5 (02:29→20:22)
--- NOTE | 2019-06-15 02:29 | NUR ---
DILAUDID GIVEN FOR 9/10 ABDOMINAL PAIN. PT TOLERATED WELL.
--- NOTE | 2019-06-15 04:50 | NUR ---
PT AWAKE AND ALERT IN PAIN. NO S/S OF DISTRESS NOTED. PT HAS COMPLAINTS OF ABD PAIN. WILL MEDICATE.
[2019-06-15] MEDS: NACL 0.9% 1,000 ML IV SCH ×3 (05:29→16:45)
--- NOTE | 2019-06-15 06:00 | NUR ---
DILAUDID GIVEN FOR 9/10 ABDOMINAL PAIN. PT TOLERATED WELL.
[2019-06-15] MEDS: BLOOD GLUCOSE MONITORING 1 DEV DEV FS SCH ×3 (06:05→16:30)
--- NOTE | 2019-06-15 06:05 | NUR ---
BS 151. 2 UNITS OF HUMALOG GIVEN.
--- NOTE | 2019-06-15 07:00 | NUR ---
PT AWAKE AND ALERT COULDNT SLEEP YESTERDAY. PT IN STABLE CONDITION.
--- NOTE | 2019-06-15 07:05 | NUR ---
RECEIVED REPORT FROM NIGHT NURSE. PT IS AWAKE AND STANDING AT THE SINK. RIGHT WRIST 22 GAUGE IV IS PATENT, ASYMPTOMATIC, AND INFUSING PER ORDER. RESPIRATIONS EVEN AND UNLABORED ON ROOM AIR. MILD DISTRESS NOTED PATIENT IS IN STABLE CONDITION AND DENIES PAIN. SAFETY MEASURES IN PLACE, CALL LIGHT, WITHIN REACH, AND WILL CONTINUE PLAN OF CARE.
[2019-06-15 07:18] LABS: BASOPHILS # (AUTO) 0.1 K/uL (0.00-0.22); BASOPHILS % (AUTO) 0.9 % (0.0-2.0); EOSINOPHILS # (AUTO) 0.1 K/uL (0-0.4); EOSINOPHILS % (AUTO) 1.5 % (0.0-4.0); HEMATOCRIT 31.3 % (36-52); HEMOGLOBIN 10.3 g/dL (12.0-18.0); LYMPHOCYTES # (AUTO) 1.5 K/uL (2.0-11.5); LYMPHOCYTES % (AUTO) 20.8 % (20.5-51.1); MEAN CORPUSCULAR HEMOGLOBIN 28 pg (27-31); MEAN CORPUSCULAR HGB CONC 33 g/dL (33-37); MEAN CORPUSCULAR VOLUME 86.2 fL (80-94); MONOCYTES # (AUTO) 0.7 K/uL (0.8-1.0); MONOCYTES % (AUTO) 10.5 % (1.7-9.3); NEUTROPHILS # (AUTO) 4.6 K/uL (1.8-7.7); NEUTROPHILS % (AUTO) 66.3 % (42.2-75.2); PLATELET COUNT (AUTO) 380 K/uL (140-450); RED BLOOD CELL COUNT(AUTO) 3.64 MIL/uL (4.20-6.10); RED CELL DISTRIBUTION WIDTH 16.1 % (11.6-13.7)
[2019-06-15 07:32] LABS: ALBUMIN 3.3 g/dL (3.4-5.0); CARBON DIOXIDE 25.1 mmol/L (21-32); CREATININE 3.2 mg/dL (0.6-1.3); POTASSIUM 4.1 mmol/L (3.5-5.1); TOTAL BILIRUBIN 0.4 mg/dL (0.0-1.0)
[2019-06-15 08:00] VITALS: BP 156/98
[2019-06-15] MEDS: ENOXAPARIN 40 MG/0.4 ML SYR SUBQ SCH (09:00)
[2019-06-15] MEDS: ONDANSETRON 4 MG/2 ML VIAL IVP PRN (09:25)
--- NOTE | 2019-06-15 09:33 | NUR ---
PT IS AWAKE AND ALERT STANDING BY THE SINK. REFUSED MEDICATION AND REPORTS PAIN, WILL MEDICATE WITH PRN MEDICATION. SAFETY MEASURES IN PLACE, CALL LIGHT WITHIN REACH, AND WILL CONTINUE TO MONITOR.
--- NOTE | 2019-06-15 11:02 | NUR ---
PT IS AWAKE AND ALERT, SITTING IN BED. REPORTS BEING TIRED AND COMPLAINS OF PAIN. ADMINISTERED PRN MEDICATION PER ORDER TOLERATED WELL. SAFETY MEASURES IN PLACE, CALL LIGHT WITHIN REACH AND WILL CONTINUE TO MONITOR.
--- NOTE | 2019-06-15 13:07 | NUR ---
PT CONTINUES TO STAND BENT OVER SINK. DENIES PAIN AT THIS TIME. SAFETY MEASURES IN PLACE, CALL LIGHT WITHIN REACH, WILL CONTINUE TO MONITOR.
[2019-06-15 16:00] VITALS: BP 183/114
[2019-06-15] MEDS: cloNIDine 0.1 MG TAB PO PRN ×2 (16:42→22:26)
--- NOTE | 2019-06-15 16:48 | NUR ---
ADMINISTERED DILAUDID 1MG FOR PAIN AND CLONIDINE 0.1MG FOR HIGH BLOOD PRESSURE PER PARAMETERS. PT SITTING IN BED. SAFETY MEASURES IN PLACE, CALL LIGHT WITHIN REACH, WILL CONTINUE TO MONITOR.
--- NOTE | 2019-06-15 18:39 | NUR ---
DRESSING CHANGE DONE AT THIS TIME ON LEFT FOOT ULCERS. MINIMAL SEROSANGUINEOUS SOILAGE ON PREVIOUS DRESSING. NO PAIN REPORTED ASSOCIATED TO WOUND.
[2019-06-15] MEDS: hydrALAZINE 20 MG/ML VIAL IVP PRN (18:54)
--- NOTE | 2019-06-15 19:25 | NUR ---
RECIEVED PT. AAOX4 ,NID , C/O ABDL PAIN - WILL REFER TO INGOT CASTER . IV SITE INTACT AND PATENT . POC DISCUSSED AND VERBALIZE UNDERSTANDING . SAFETY MEASURES IN PLACE - CALL LIGHT WITHIN REACH . WILL CONT. TO MONITOR.
--- NOTE | 2019-06-15 19:25 | NUR ---
PT ENDORSED TO NIGHT NURSE FOR CONTINUITY OF CARE.
--- NOTE | 2019-06-15 20:10 | NUR ---
MADE ROUNDS ROUNDS - PT. SAID THE 1MG DILAUDID SEEMS DOES NOT FOR FOR HIS PAIN - WILL REFER TO BUSINESS APPLICATIONS MANAGER
--- NOTE | 2019-06-15 20:22 | NUR ---
STILL NO CALL BACK TO DR. AMADOR . DILAUDID 1 MG TIV GIVEN FOR PAIN ORDERED . WILL CONT. TO MONITOR.
--- NOTE | 2019-06-15 21:02 | NUR ---
INCREASE THE DOSE OF DILAUDID FROM 1MG TO 1.5MG T.O BY DR. AMADOR.
--- NOTE | 2019-06-15 21:05 | NUR ---
CALL TO PHAMACIST TO CLARIFY IF DILAUDID IS THE SAME DILAUDID PFS - THE PHARMACIST SAID YES IT IS THE SAME.
--- NOTE | 2019-06-15 22:53 | NUR ---
MADE ROUNDS , PT. SITTING ON THE BED , SLEEPY - JUST TOOK AMBIEN - ENCOURAGE PT TO LAY DOWN IN THE BED BUT REFUSED - RE EDUCATES ABOUT THE SIDE EFFECTS OF AMBIEN THAT HE MAY BE FALL . BUT THE PT INSISTING TO STAY SITTING ON THE EDGE OF THE BED.CALL LIGHT WITHIN REACH.
[2019-06-16] VITALS: BP 150/100
--- NOTE | 2019-06-16 01:00 | NUR ---
MADE ROUNDS. HE SAID HE UNABLE TO FALL SLEEP INSPITE HE GOT AMBIEN , HE SAID AMBIEN DOES NOT WORKS , HE REQUESTING BENADRYL FOR SLEEPLESSNESS - WILL PAGE ORDNANCE TRUCK INSTALLATION MECHANIC ABOUT IT.
[2019-06-16] MEDS ORDERED: diphenhydrAMINE 50 MG/ML VIAL IVP PRN (01:05)
[2019-06-16] MEDS ORDERED: diphenhydrAMINE 50 MG/ML VIAL ONE (01:13)
--- NOTE | 2019-06-16 01:13 | NUR ---
BENADRYL 25MG TIV GIVEN OREDERED - WILL CONT. TO MONITOR. CALL LIGHT WITHIN REACH.
[2019-06-16] MEDS: HYDROmorphone PFS 2 MG/ML SYR IVP PRN ×6 (01:37→21:27)
[2019-06-16] MEDS: ONDANSETRON 4 MG/2 ML VIAL IVP PRN (01:41)
--- NOTE | 2019-06-16 02:30 | NUR ---
PT. SITTING ON THE BED , SLEEPY , ENCOURAGE HIM TO LAY DOWN TO BED , BUT SHE REFUSE. EMPHASIZED THAT HE MAY BE FALL IF HE STY TO SITTING ON THE BED BECAUSE HE GOT AMBIEN AND BENADRYL TIV WHILE AGO - EDUCATES PT THE SIDE EFFECTS OF AMBIEN , MORPHINE , ANTI HYPERTENSIVE DRUG ,AND BENADRYL , BUT PT. STILL REFUSE TO LAY IN THE BED. HE SAID HE WANTS TO REMAINS SITTING IN THE BED AND HE SAID " LEAVE ME ALONE".
[2019-06-16] MEDS: NACL 0.9% 1,000 ML IV SCH ×3 (02:45→22:58)
--- NOTE | 2019-06-16 04:00 | NUR ---
MADE ROUNDS , NO S/S OF ACTE DISTRESS NOTED AT THIS TIME , CALL LIGHT WITHIN REACH.
[2019-06-16] MEDS: BLOOD GLUCOSE MONITORING 1 DEV DEV FS SCH ×4 (05:41→21:22)
--- NOTE | 2019-06-16 06:00 | NUR ---
NPO . REQUESTING TO HAVE SMALL PIECES OF ICE CHIPS - JUST TO WET HIS LIP BECAUSE HE SAID HE HAS DRY MOUTH.
--- NOTE | 2019-06-16 06:49 | NUR ---
DRESSING IN THE LEFT FOOT DONE - WELL TOLERATED THE PROCEDURE.
[2019-06-16 07:28] LABS: CREATININE 2.6 mg/dL (0.6-1.3)
--- NOTE | 2019-06-16 07:30 | NUR ---
RECEIVED REPORT FROM FISHING VESSEL DECKHAND NURSE. PATIENT SITTING DOWN IN BED, AAOX4, CALM, COOPERATIVE, SKIN COLOR APPROPRIATE TO ETHNICITY, WARM TO TOUCH. HAS LEFT FOOT WOUND, DRESSING DRY AND INTACT AT THIS TIME. 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 PAIN WITHIN TOLERABLE AT THIS TIME. RESPIRATIONS EVEN, UNLABORED, ON ROOM AIR. IV SITE INTACT, PATENT, AND INFUSING IVF PER MD ORDERS. REVIEWED PLAN OF CARE WITH PATIENT. PATIENT VERBALIZED UNDERSTANDING. SAFETY MEASURES IN PLACE, CALL LIGHT WITHIN REACH. WILL CONTINUE TO MONITOR.
[2019-06-16 08:00] VITALS: BP 173/111
[2019-06-16] MEDS: ENOXAPARIN 40 MG/0.4 ML SYR SUBQ SCH (09:00)
[2019-06-16] MEDS ORDERED: cloNIDine-TTS1 0.1 MG/24 HR 1 EA PATCH TD SCH (09:00)
[2019-06-16] MEDS: hydrALAZINE 20 MG/ML VIAL IVP PRN ×2 (09:47→18:02)
--- NOTE | 2019-06-16 09:50 | NUR ---
PATIENT SITTING DOWN IN BED WITH COMPLAINTS OF ABD PAIN, DILAUDID GIVEN AT THIS TIME. PATIENT REFUSED LOVENOX INJECTION, AMBULATES FINE BY SELF. AWAITING FOR CLONIDINE PATCH PER PHARMACY. BP HIGH, HYDRALAZINE VIA IV GIVEN PER MD ORDERS. WILL CONTINUE TO MONITOR.
--- NOTE | 2019-06-16 11:38 | NUR ---
Late entry. COnfirmed with RN that 0.9 NS IV completed at 0630.
--- NOTE | 2019-06-16 11:57 | NUR ---
CLONIDINE PATCH ARRIVED AT PHARMACY, APPLIED TO PATIENT. WILL CONTINUE TO MONITOR.
--- NOTE | 2019-06-16 12:09 | NUR ---
WOUND CARE EVALUATION NOTE: WOUND CARE ASSESSMENT DONE TO PT. WHO HAD HX OF FIRST RAY AMPUTATION AND CHRONIC WOUNDS TO LEFT FOOT. COMPARE TO LAST ADMISSION WOUNDS HAS IMPROVING, GRANULATION TISSUE WITH NO TENDON EXPOSED. WOUND CARE TEACHING DONE PT. VERBALIZES UNDERSTANDING. PER PT. HE CAN PERFORM WOUND CARE BY HIMSELF.ALL QUESTIONS ANSWERED. -LEFT FIRST RAY OLD HEALED SCAR WITH THICK BROWN SCAB 2X2CM TO MEDIAL FOOT SUE WOUND SKIN INTACT DRY AND SCALY. -LEFT ANTERIOR FOOT SURGICAL WOUND 5X4X0.3CM WOUND BED 100% GRANULATING TISSUE WITH WOUND BED MOIST NO ODOR, WOUND EDGE FLAT WITH SUE WOUND SKIN INTACT DRY AND SCALY. -LEFT POSTERIOR ACHILLES' HEEL SURGICAL WOUND 3X2X0.1CM WOUND BED 100% GRANULATING TISSUE, WOUND BED MOIST NO ODOR, WOUND EDGE FLAT WITH SUE WOUND SKIN INTACT. - RIGHT /LEFT DORSAL FEET/TOES XEROSIS SKIN RECOMMENDATIONS: -APPLY HYDRAGUARD TO RIGHT AND LEFT 3-4 TIMES A DAY -PAINT LEFT MEDIAL FOOT BROWN SCAB WITH BETADINE SOLUTION BID AND WENDY -CLEANSE SURGICAL WOUNDS TO LEFT ANTERIOR FOOT AND LEFT POSTERIOR ACHILLES' HEEL WITH NS, PAT DRY, APPLY HYDROGEL WITH ADAPTIC DRESSING, COVER WITH DRY DRESSING QD AND PRN IF SOILING. -MAY DISCHARGE WOUND CARE SUPPLIES WITH PT. ALL ABOVE RECOMMENDATIONS DISCUSSED WITH PRIMARY RN PLEASE CONTACT WOUND CARE NURSE FOR ANY QUESTION AND CHANGE OF WOUND CONDITION.
[2019-06-16] MEDS ORDERED: SKINTEGRITY HYDROGEL TP PRN (12:20)
[2019-06-16] MEDS: GAUZE TP SCH (13:49)
[2019-06-16] MEDS: SKINTEGRITY HYDROGEL TP SCH (13:50)
[2019-06-16] MEDS: HYDRAGUARD CREAM TP SCH ×3 (13:50→23:00)
--- NOTE | 2019-06-16 13:53 | NUR ---
PATIENT SITTING IN BED WITH COMPLAINTS OF ABD, PAIN, DILAUDID GIVEN AT THIS TIME. WILL CONTINUE TO MONITOR.
--- NOTE | 2019-06-16 14:38 | NUR ---
PATIENT SITTING IN BED ON HIS PHONE. CONDITION UNCHANGED. PAIN WITHIN TOLERABLE AT THIS TIME. WILL CONTINUE TO MONITOR.
[2019-06-16 16:00] VITALS: BP 186/103
--- NOTE | 2019-06-16 18:06 | NUR ---
PATIENT COMPLAINS OF PAIN, DILAUDID GIVEN AT THIS TIME. BP ELEVATED, HYDRALAZINE PRN IV GIVEN PER MD ORDERS. WILL CONTINUE TO MONITOR.
[2019-06-16 19:02] VITALS: BP 167/96
--- NOTE | 2019-06-16 19:18 | NUR ---
GAVE REPORT TO PREVENTION SPECIALIST NURSE FOR CONTINUITY OF CARE. PATIENT IN STABLE CONDTION.
--- NOTE | 2019-06-16 19:20 | NUR ---
RECEIVED PT IN STABLE CONDITION FROM AM NURSE. PT IS AWAKE,ALERT AND ORIENTED X4. MED SURG PT. WITH NO C/O ANY PAIN AT THIS TIME. IVF INFUSING WELL ON THE RT WRIST G#22. CLEAR AND PATENT. AMBULATORY. PLAN OF CARE DISCUSSED AND VERBALIZED UNDERSTANDING. BED ON LOW POSITION. SIDE RAILS UP X2. CALL LIGHT WITHIN EASY REACH. ON CONTACT ISOLATION . PROTOCOL IN PLACED. WILL CONTINUE TO MONITOR.
--- NOTE | 2019-06-16 21:22 | NUR ---
BLOOD SUGAR WAS CHECKED RESULT 121. NO INSULIN COVERAGE NEEDED. PT HAD SOME JUICE.
--- NOTE | 2019-06-16 23:30 | NUR ---
MADE ROUNDS. PT SITTING ON THE SIDE OF BED WITH FAMILY AT BEDSIDE. PAIN TOLERABLE AT THIS TIME.
[2019-06-17] VITALS: BP 169/99
--- NOTE | 2019-06-17 00:13 | NUR ---
REFUSED TORADOL IVP DUE AT THIS TIME. SHE SAID SHE DOESN'T NEED, FOR SHE HAVE NO PAIN. DR. KENT,RESIDENT MADE AWARE. Addendum: 06/17/19 at 0019 by Rowan Cortes RN CANCEL ABOVE NOTE. CAREGIVER MISTAKE.
[2019-06-17] MEDS: HYDROmorphone PFS 2 MG/ML SYR IVP PRN ×3 (01:15→08:19)
--- NOTE | 2019-06-17 01:15 | NUR ---
PT C/O ABDOMINAL PAIN. ,MEDICATED ORDERED.
--- NOTE | 2019-06-17 03:15 | NUR ---
MADE ROUNDS. AWAKE AND STANDING ON THE SIDE OF THE BED. IVF INFUSING WELL. ABDOMINAL PAIN GUARDING. OF THIS TIME IT IS TOLERABLE.
[2019-06-17] MEDS: NACL 0.9% 1,000 ML IV SCH (06:17)
[2019-06-17] MEDS: BLOOD GLUCOSE MONITORING 1 DEV DEV FS SCH ×2 (06:28→12:14)
--- NOTE | 2019-06-17 06:28 | NUR ---
BLOOD SUGAR WAS CHECKED RESULT 116. NO INSULIN COVERAGE NEEDED.
[2019-06-17 07:03] LABS: ANION GAP 12.7 (8-16); CARBON DIOXIDE 25.3 mmol/L (21-32); CREATININE 2.5 mg/dL (0.6-1.3); TOTAL BILIRUBIN 0.4 mg/dL (0.0-1.0)
--- NOTE | 2019-06-17 07:25 | NUR ---
ENDORSED PT IN STABLE CONDITION TO AM NURSE.
--- NOTE | 2019-06-17 07:26 | NUR ---
RECEIVED BEDSIDE SHIFT REPORT FROM AN/SSN 2 4 OPERATOR NURSE FOR CONTINUATION OF CARE.
[2019-06-17 08:00] VITALS: BP 177/95
[2019-06-17] MEDS: HYDRAGUARD CREAM TP SCH ×2 (08:03→13:58)
[2019-06-17] MEDS: ENOXAPARIN 40 MG/0.4 ML SYR SUBQ SCH (08:07)
[2019-06-17] MEDS: cloNIDine 0.1 MG TAB PO PRN ×2 (09:41→12:07)
--- NOTE | 2019-06-17 10:00 | NUR ---
MEDICATED FOR SEVERE PAIN, TOLERATING FULL LIQUID DIET. SITTING AT EDGE OF BED WITH PHONE, MEDICATED FOR HYPERTENSION WITH 0.1 MG CLONIDINE. WILL CONTINUE TO MONITOR.
[2019-06-17] MEDS ORDERED: NIFEdipine 30 MG TABER PO SCH (10:50)
[2019-06-17] MEDS: hydrALAZINE 20 MG/ML VIAL IVP PRN (12:09)
--- NOTE | 2019-06-17 12:58 | NUR ---
06/17/19 RD INITIAL ASSESSMENT COMPLETED PLEASE REFER TO NUTRITION ASSESSMENT UNDER CARE ACTIVITY FOR ESTIMATED NUTRITIONAL NEEDS. 1. CONTINUE CLEAR LIQUID DIET TOLERATED 2. RECOMMEND ENSURE CLEAR TID. 3. RD TO FOLLOW-UP 3-5 DAYS, MODERATE RISK YOLIE RECINOS, RD
--- NOTE | 2019-06-17 13:00 | NUR ---
MEDICATED FOR HYPERTENSION WITH HYDRALAZINE IV, WILL CONTINUE TO MONITOR.
[2019-06-17] MEDS ORDERED: ONDA4TAB PO (13:04)
[2019-06-17] MEDS ORDERED: CLON0.1T46 TD (13:04)
[2019-06-17] MEDS ORDERED: NIFE30TA36 PO (13:04)
[2019-06-17] MEDS ORDERED: [UNRECOGNIZED DRUG - CODE] PO (13:04)
[2019-06-17] MEDS ORDERED: METO-485 PO (13:04)
[2019-06-17 13:09] VITALS: BP 165/82
[2019-06-17] MEDS: SKINTEGRITY HYDROGEL TP SCH (13:58)
[2019-06-17] MEDS: GAUZE TP SCH (13:58)
--- NOTE | 2019-06-17 16:20 | NUR ---
DISCHARGED FROM [facility] IN MEDICALLY STABLE CONDITION, CALL LIGHT ON AND WITHIN REACH. BELONGINGS SIGNED AND ACCOUNTED FOR. DISCHARGE INFORMATION DISCUSSED AND EDUCATED ON THE IMPORTANCE OF FOLLOWING WITH WITH PCP 1-2 WEEKS POST DISCHARGE.
== END 2019-06-17 16:48 | disposition home or self-care (01) | DRG 282 ==
LOC: MED 00:55 → MTU 03:17
PROVIDERS: ADMIT Hospitalist; ATTEND Hospitalist
DX: K85.90 Acute pancreatitis without necrosis or infection, unspecified (principal); N17.9 Acute kidney failure, unspecified; E11.22 Type 2 diabetes mellitus with diabetic chronic kidney disease; E11.42 Type 2 diabetes mellitus with diabetic polyneuropathy; I12.9 Hypertensive chronic kidney disease with stage 1 through stage 4 chronic kidney disease, or unspecified chronic kidney disease; N18.9 Chronic kidney disease, unspecified; Z91.14 Patient's other noncompliance with medication regimen; F17.210 Nicotine dependence, cigarettes, uncomplicated; K21.9 Gastro-esophageal reflux disease without esophagitis; K86.1 Other chronic pancreatitis; D63.8 Anemia in other chronic diseases classified elsewhere; I16.0 Hypertensive urgency
CPT/HCPCS: 36415; 80048; 80053; 80305; 82948; 83690; 85025; 87081; 96361; 96374; 96375; 96376; 99285; A6248; J0360; J1170; J1200; J1650; J1815; J1885; J2270; J2405; J7030

== ENCOUNTER 2019-08-12 20:11 | Observation (INO) | payer OTHER ==
[~2019-08-12] VITALS: Ht 190.5 cm; Wt 154.2 kg
[~2019-08-12 20:11] MED LIST changes: -AMLO5TAB PO; +CLON0.1T46 TD; -CLON0.2T43 PO; -FURO-570 PO; -HYDR100T79 PO; +NIFE30TA36 PO; +ONDA4TAB PO; -RANI150T8 PO
[2019-08-12 20:15] VITALS: BP 152/87
--- NOTE | 2019-08-12 20:17 | NUR ---
PT AMBUALTED TO BED 5 WITH STEADY GAIT. NEGATIVE COVID SCREEN. PT WEARING MASK. TRIANGE NURSE WEARING APPROPRIATE PPE.
--- NOTE | 2019-08-12 20:30 | NUR ---
33 YO MALE BIB SELF FOR C/C OF 8/10 EPIGASTRIC PAIN X2 DAYS. PT STATES THE PAIN DOES NOT RADIATE AND STAYS IN THE MID UPPER QUADRANTS. PT DESCRIBES HIS PAIN DULL AND THROBBING AND DENIES TAKING ANY MEDICATIONS TO TREAT THE PAIN. PT IS ROCKING BACK IN FORTH AND UNABLE TO REMIAN STILL DUE TO THE PAIN. PT STATES HE HAS HAD PANCREATITIS IN THE PAST AND THIS ABD PAIN FEELS THE SAME WAY. PT HAS EXPERIENCED N/V X1 DAY AND IS UNABLE TO HOLD DOWN FOOD OR LIQUIDS. LBM WAS TODAY, SOFT AND FORMED. BOWEL SOUNDS NORMOACTIVE THROUGHOUT. ACCU CHECK WAS 175. PT DENIES FEVER, COUGH, SOB, AND TRAVEL. PT PLACED ON FLIGHT MANAGER. BED LOCKED AND IN LOWEST POSITION. SIDE RAILS X1. MED HX: PANCREATITIS, DM2, HTN MEDS: BP MED (UNABLE TO NAME), INSULIN NKA
[2019-08-12] MEDS ORDERED: NACL 0.9% 2,000 ML IV ONE (20:42)
--- NOTE | 2019-08-12 20:42 | NUR ---
Dr. Olson examining patient.
[2019-08-12] MEDS ORDERED: ONDANSETRON 4 MG/2 ML VIAL IVP ONE ×2 (20:45→21:45)
[2019-08-12] MEDS ORDERED: MORPHINE SULFATE 10 MG/ML VIAL IVP ONE (20:45)
[2019-08-12 21:02] LABS: BASOPHILS # (AUTO) 0.1 K/uL (0.00-0.22); BASOPHILS % (AUTO) 0.3 % (0.0-2.0); EOSINOPHILS % (AUTO) 0.1 % (0.0-4.0); HEMATOCRIT 32.3 % (36-52); HEMOGLOBIN 10.6 g/dL (12.0-18.0); LYMPHOCYTES # (AUTO) 1.2 K/uL (2.0-11.5); LYMPHOCYTES % (AUTO) 5.8 % (20.5-51.1); MEAN CORPUSCULAR HEMOGLOBIN 28 pg (27-31); MEAN CORPUSCULAR HGB CONC 33 g/dL (33-37); MEAN CORPUSCULAR VOLUME 85.7 fL (80-94); MONOCYTES # (AUTO) 1.6 K/uL (0.8-1.0); MONOCYTES % (AUTO) 7.5 % (1.7-9.3); NEUTROPHILS # (AUTO) 17.9 K/uL (1.8-7.7); NEUTROPHILS % (AUTO) 86.3 % (42.2-75.2); PLATELET COUNT (AUTO) 353 K/uL (140-450); RED BLOOD CELL COUNT(AUTO) 3.77 MIL/uL (4.20-6.10); RED CELL DISTRIBUTION WIDTH 15.6 % (11.6-13.7); WHITE BLOOD COUNT (AUTO) 20.7 K/uL (4.8-10.8)
[2019-08-12 21:18] LABS: ALBUMIN 2.7 g/dL (3.4-5.0); ANION GAP 14.2 (8-16); CARBON DIOXIDE 22.9 mmol/L (21-32); CREATININE 3.2 mg/dL (0.6-1.3); POTASSIUM 4.1 mmol/L (3.5-5.1); TOTAL BILIRUBIN 0.5 mg/dL (0.0-1.0)
--- NOTE | 2019-08-12 21:23 | NUR ---
ENCOURAGED PT TO VOID--UNABLE TO DO SO AT THIS TIME.
[2019-08-12] MEDS ORDERED: MORPHINE SULFATE 4 MG/ML SYR IVP ONE (21:45)
[2019-08-12] MEDS ORDERED: KETOROLAC 30 MG/ML VIAL IVP ONE (21:45)
--- NOTE | 2019-08-12 21:45 | NUR ---
PT RESTLESS WITH 8/10 PAIN AFTER MEDS ADMINISTERED. VIKASD MADE AWARE.
--- NOTE | 2019-08-12 21:55 | NUR ---
CT CAME TO GET PT. PT ASKED TO PLEASE HOLD OFF ON CT UNTIL PAIN IMPROVES AFTER MEDS ADMINSTERED. WILL REASSESS IN 10 MIN
--- NOTE | 2019-08-12 22:05 | NUR ---
CALLED CT TO LET THEM KNOW THAT PT IS READY FOR CT AFTER PAIN LEVEL REDUCED FROM 11/14 TO 6
--- NOTE | 2019-08-12 22:12 | NUR ---
PT TAKEN TO CT VIA WHEELCHAIR
[2019-08-12] MEDS ORDERED: METOCLOPRAMIDE 10 MG/2 ML INJ VIAL IVP ONE (22:30)
--- NOTE | 2019-08-12 23:10 | NUR ---
STATES INCREASING STOMACH PAIN 8/10 AND ASKS FOR PAIN MEDS. DR[address] KRAMER NOTIFIED.
[2019-08-12] MEDS ORDERED: DICYCLOMINE HCL LIQUID 20 MG, ALUMINUM HYD/MAG/SIMETHICONE 30 ML, LIDOCAINE VISCOUS 2% ... PO ONE ×3 (23:15)
[2019-08-12 23:22] LABS: APPEARANCE,URINE SL CLOUDY (CLEAR); BILIRUBIN,URINE NEGATIVE (NEGATIVE); BLOOD, URINE 2+ (NEGATIVE); COLOR,URINE YELLOW (YELLOW); LEUKOCYTE ESTERASE ,URINE NEGATIVE (NEGATIVE); NITRITE, URINE NEGATIVE (NEGATIVE); PH,URINE 5.5 (5.0-9.0); UGLUCOSE TRACE (NEGATIVE)
[2019-08-12] MEDS ORDERED: SIMETHICONE 40 MG/0.6 ML ONE (23:24)
[2019-08-12] MEDS ORDERED: LIDOCAINE VISCOUS 2% 20 ML UDC ONE (23:24)
[2019-08-12] MEDS ORDERED: DICYCLOMINE HCL LIQUID 10 MG/5 ML UDC ONE (23:25)
[2019-08-12] MEDS ORDERED: ALUMINUM HYD/MAG/SIMETHICONE 30 ML UDC ONE (23:27)
--- NOTE | 2019-08-12 23:31 | NUR ---
PT MEDICATED WITH GI COCKTAIL. TOLERATED WELL.
--- NOTE | 2019-08-13 | NUR ---
PT STILL UNCOMFORTABLE. STANDING IN ROOM TO RELIEVE PAIN. ERMD MADE AWARE. VSS. RESPIRATIONS ARE EQUAL AND UNLABORED.
[2019-08-13 00:01] LABS: BARBITURATE, URINE NEGATIVE ng/ml (NEG <=200); BENZODIAZEPINE, URINE NEGATIVE ng/mL (NEG <=200); CANNABINOID, URINE POSITIVE ng/mL (NEG <=50); COCAINE, URINE NEGATIVE ng/mL (NEG <=300); OPIATE, URINE POSITIVE ng/mL (NEG <=2000); PHENCYCLIDINE SCREEN,URINE NEGATIVE ng/mL (NEG <=25)
[2019-08-13 00:40] LABS: HYALINE CASTS, URINE 0-10 /LPF (None Seen); URINE AMORPHOUS URATE 4+ /HPF (None Seen); WBC,URINE 0-5 /HPF (0-5)
[2019-08-13] MEDS ORDERED: HALOPERIDOL IM 5 MG/ML VIAL IM ONE (00:45)
[2019-08-13] MEDS ORDERED: HALOPERIDOL IM 5 MG/ML VIAL ONE (00:49)
--- NOTE | 2019-08-13 01:00 | NUR ---
PT STATES HIS PAIN IS STILL 11/14. VIKASD MADE AWARE.
[2019-08-13 02:14] VITALS: BP 165/82
--- NOTE | 2019-08-13 02:14 | NUR ---
PATIENT ARRIVED INTO UNIT VIA WHEELCHAIR. BEDSIDE REPORT GIVEN BY ED NURSE TWAN. PATIENT IS AMBULATORY. NO SOB OR DISTRESS NOTED, ON ROOM AIR. IV ACCESS ON RIGHT FOREARM 20 GAUGE, PATENT AND INTACT. INITIAL VITAL SIGNS TAKEN. MRSA SWAB DONE AND SENT TO LAB. INITIAL ASSESSMENT DONE. PATIENT NOTED WITH BLE SORES AND LEFT FOOT PARTIAL AMPUTATION. PATIENT DOES NOT WANT TO TAKE OFF SOCK TO SHOW FEET AT THIS TIME FOR ASSESSMENT. ORIENTED TO ROOM AND ENVIRONMENT. BED IN LOW, BED LOCKED. PATIENT SITTING ON CHAIR AT BEDSIDE. SAFETY MEASURES IN PLACE. CALL LIGHT WITHIN PATIENT REACH. WILL CONTINUE TO MONITOR PATIENT.
--- NOTE | 2019-08-13 02:14 | NUR ---
Patient will be admitted to [facility]. Admited to [facility]. Will go to room 120B. Belongings list completed. Report to JENNIFER RIZO.
[2019-08-13] MEDS ORDERED: INSULIN LISPRO SLIDING SCALE 100 UNITS/ML VIAL SUBQ PRN (03:55)
[2019-08-13] MEDS ORDERED: DEXTROSE 50% 50 ML SYR IVP PRN (03:55)
[2019-08-13] MEDS ORDERED: DEXT 5% / NACL 0.45% 1,000 ML IV SCH (03:55)
[2019-08-13] MEDS: HYDROmorphone 1 MG/ML AMP IVP PRN ×2 (04:06→08:37)
--- NOTE | 2019-08-13 04:09 | NUR ---
PRN DILAUDID GIVEN AT THIS TIME FOR SEVERE PAIN PER PATIENT REQUEST. WILL CONTINUE TO MONITOR PATIENT.
[2019-08-13] MEDS: cloNIDine 0.1 MG TAB PO PRN ×2 (04:15→08:38)
--- NOTE | 2019-08-13 04:15 | NUR ---
PRN CATAPRES ADMINISTERED FOR ELEVATED BP OF 174/91 AND HR OF 94. WILL CONTINUE TO MONITOR PATIENT.
[2019-08-13] MEDS ORDERED: LEVOFLOXACIN 500 MG/D5W PREMIX 100 ML IV SCH (04:30)
[2019-08-13] MEDS ORDERED: diphenhydrAMINE 50 MG/ML VIAL IVP PRN (04:30)
[2019-08-13] MEDS ORDERED: HYDROcodone/APAP 10/325 MG 1 TAB TAB PO PRN (04:30)
[2019-08-13] MEDS ORDERED: ONDANSETRON 4 MG/2 ML VIAL IVP PRN (04:30)
--- NOTE | 2019-08-13 05:30 | NUR ---
WOUND ASSESSMENT AND WOUND CARE DONE WITH ANOTHER RN. PHOTOS TAKEN. WOUNDS CLEANED AND DRESSINGS CHANGED.
--- NOTE | 2019-08-13 05:58 | NUR ---
REASSESSED PATIENT VITALS BP 154/88 AND HR 85. PATIENT IS SITTING AT BEDSIDE. NO DISTRESS NOTED.
[2019-08-13 07:09] LABS: BASOPHILS % (AUTO) 0.1 % (0.0-2.0); EOSINOPHILS # (AUTO) 0.3 K/uL (0-0.4); EOSINOPHILS % (AUTO) 1.4 % (0.0-4.0); HEMOGLOBIN 9.6 g/dL (12.0-18.0); LYMPHOCYTES # (AUTO) 0.7 K/uL (2.0-11.5); LYMPHOCYTES % (AUTO) 3.4 % (20.5-51.1); MEAN CORPUSCULAR HEMOGLOBIN 28 pg (27-31); MEAN CORPUSCULAR HGB CONC 32 g/dL (33-37); MEAN CORPUSCULAR VOLUME 86.5 fL (80-94); MONOCYTES # (AUTO) 1.9 K/uL (0.8-1.0); MONOCYTES % (AUTO) 9.1 % (1.7-9.3); NEUTROPHILS # (AUTO) 17.9 K/uL (1.8-7.7); PLATELET COUNT (AUTO) 319 K/uL (140-450); RED BLOOD CELL COUNT(AUTO) 3.47 MIL/uL (4.20-6.10); RED CELL DISTRIBUTION WIDTH 15.7 % (11.6-13.7); WHITE BLOOD COUNT (AUTO) 20.9 K/uL (4.8-10.8)
--- NOTE | 2019-08-13 07:20 | NUR ---
ENDORSED TO AM SHIFT NURSE FOR CONTINUITY OF CARE. PATIENT IN STABLE CONDITION. CALL LIGHT WITHIN PATIENT REACH.
[2019-08-13] MEDS ORDERED: BLOOD GLUCOSE MONITORING 1 DEV DEV FS SCH (07:30)
--- NOTE | 2019-08-13 07:58 | NUR ---
SHIFT REPORT RECEIVED FROM MAINFRAME SYSTEMS ADMINISTRATOR NURSE. PT WAS SEEN SLEEPING IN BED WITH NO DISTRESS NOTED. WILL CONTINUE TO MONITOR. CALL LIGHT IN REACH.
[2019-08-13 08:38] VITALS: BP 174/97
--- NOTE | 2019-08-13 09:07 | NUR ---
RECEIVED REPORT FROM AM NURSE FOR CONTINUITY OF CARE, PT IS STABLE, PT IS ROOM, SAFETY MEASURES IN PLACE, PT HAS RIGHT FA 20G INFUSING D51/2NS AT 100 ML/H, ALL NEEDS MET AT THIS TIME, WILL CONTINUE TO MONITOR, CALL LIGHT WITHIN REACH.
--- NOTE | 2019-08-13 10:35 | NUR ---
SPOKE WITH DR RAMAN REGARDING PT WANTING TO LEAVE AMA. EXPLAINED TO DR RAMAN PT DID NOT WANT TO DO COVID 19 NAS[address] TESTING, DR RAMAN SAID HE CAN NOT FORCED PT TO STAY OR TAKE THE TEST, THE PT HAS THE RIGHT TO REFUSED THE TEST BUT HE NEEDS THE TEST, INFORM THE PT THE TEST NEEDS TO BE DONE AND HE WOULD LIKELY GET TESTED AT ANOTHER HOSPITAL BECAUSE HE METS CRITERIA FOR TESTING, MD AWARE PT IS LEAVING AMA.
--- NOTE | 2019-08-13 10:45 | NUR ---
AT 1040 WENT INTO PT'S ROOM TO CONDUCT COVID 19 TEST, EXPLAINED THE PROCEDURE TO PT, PUT SWAB INTO NARES AND PT PULLED HEAD BACK AND SAID HE DID NOT WANT THE TEST DONE, PT REFUSED TEST AND EXPLAINED TO PT THAT HE NEED THE TEST HE MET CRITERIA, PT STATED HE WANTED TO LEAVE, EXPLAINED TO PT THAT IF HE LEFT HE WOULD BE LEAVING AMA AND THAT THE DR NEEDED TO BE NOTIFIED, PT STATED HE WANTED TO LEAVE AND TO GET THE FORM FOR HIM TO SIGN, EXPLAINED TO PT THAT SIGNING THE FORM MEANS HE KNOWS HE COULD POSSIBLY DUE TO HIS MEDICAL CONDITION, PT INFORMED OF THE RISK AND BENEFITS OF LEAVING AMA BUT PT STILL PERSISTENT ON LEAVING THE HOSPITAL, PT VERBALIZED UNDERSTANDING, PT SIGNED AMA FORM AND IV WAS REMOVED, VITAL SIGNS STABLE AT THIS TIME.
--- NOTE | 2019-08-13 10:55 | NUR ---
PT LEFT AGAINST MEDICAL ADVISE, PT STABLE, PT WALKED WITH STEADY GAIT TO LOBBY, PT SIGNS AMA FORMED, DR RAMAN NOTIFIED
--- NOTE | 2019-08-13 11:40 | NUR ---
MANUFACTURING TECH NOTE: SW ATTEMPTED TO CONDUCT SCREENING BUT PATIENT WAS DISCHARGED.
[2019-08-13] MEDS ORDERED: HYDRAGUARD CREAM TP SCH (13:00)
[2019-08-13] MEDS ORDERED: GAUZE TP SCH (13:00)
== END 2019-08-13 11:00 | disposition left against medical advice (07) ==
LOC: MED 20:11 → MTU 08-13 01:01 → UNDOADMIN 08-13 01:01
PROVIDERS: ADMIT Hospitalist; ATTEND Hospitalist
DX: K85.90 Acute pancreatitis without necrosis or infection, unspecified (principal); R11.10 Vomiting, unspecified; K86.1 Other chronic pancreatitis; N17.9 Acute kidney failure, unspecified; I12.9 Hypertensive chronic kidney disease with stage 1 through stage 4 chronic kidney disease, or unspecified chronic kidney disease; E11.22 Type 2 diabetes mellitus with diabetic chronic kidney disease; N18.9 Chronic kidney disease, unspecified; D72.829 Elevated white blood cell count, unspecified; K21.9 Gastro-esophageal reflux disease without esophagitis; F12.10 Cannabis abuse, uncomplicated; Z89.432 Acquired absence of left foot; Z79.4 Long term (current) use of insulin; Z79.899 Other long term (current) drug therapy
CPT/HCPCS: 36415; 74176; 80053; 80305; 81001; 82948; 83690; 85025; 87070; 87081; 87186; 96361; 96365; 96372; 96375; 96376; 99285; G0378; J1170; J1630; J1885; J1956; J2270; J2405; J2765; 96374

== ENCOUNTER 2019-08-30 22:58 | Emergency (ER) | payer OTHER ==
[~2019-08-30] VITALS: Ht 190.5 cm; Wt 138.3 kg
[~2019-08-30 22:58] MED LIST changes: +ROC2I IV; +VANC1.2526 IV
[2019-08-30 23:04] VITALS: BP 163/100
--- NOTE | 2019-08-30 23:08 | NUR ---
PT AMBULATED TO BED #12
--- NOTE | 2019-08-30 23:24 | NUR ---
PT SEEN AND EXAM BY DR BANKS AND FOR DISCHARGE. DRESSING CHANGE DONE BY ANTHONY RIZO ON PT PICC LINE. PT IS AAOX4 AND NO PAIN NOTED.
[2019-08-30 23:29] VITALS: BP 155/90
--- NOTE | 2019-08-30 23:44 | NUR ---
NO NURSING INTERVENTION ORDERED BY DONNIE BANKS.
== END 2019-08-30 23:44 | disposition home or self-care (01) ==
LOC: MED 22:58
DX: Z48.00 Encounter for change or removal of nonsurgical wound dressing (principal); K21.9 Gastro-esophageal reflux disease without esophagitis; I10 Essential (primary) hypertension; E11.9 Type 2 diabetes mellitus without complications; F12.10 Cannabis abuse, uncomplicated; K85.90 Acute pancreatitis without necrosis or infection, unspecified
CPT/HCPCS: 99283

== ENCOUNTER 2019-09-08 21:19 | Emergency (ER) | payer OTHER ==
[~2019-09-08] VITALS: Ht 190.5 cm; Wt 155.6 kg
[2019-09-08 21:21] VITALS: BP 126/75
--- NOTE | 2019-09-08 21:27 | NUR ---
PT AMBULATED TO BED 11 WITH STEADY GAIT.
--- NOTE | 2019-09-08 21:45 | NUR ---
Dr. Loco examining patient.
--- NOTE | 2019-09-08 21:50 | NUR ---
APPLIED NEW TEGADERM TO RIGHT ARM PICC LINE SITE PER VERBAL ORDER
--- NOTE | 2019-09-08 21:51 | NUR ---
33 Y/O MALE C/O THINKS PICC LINE IS LEAKING. PICC LINE FLUSHES, NO S/SX OF INFILTRATION. NO PAIN AT SITE. NEW TEGADERM APPLIED TO PICC LINE SITE. DENIES N/V/D; SKIN IS PINK/WARM/DRY; AAOX4 WITH EVEN AND STEADY GAIT; HR EVEN AND REGULAR; PT DENIES ANY FEVER, CP, SOB, OR COUGH AT THIS TIME; PATIENT STATES PAIN OF 0/10 AT THIS TIME; VSS; PATIENT POSITIONED FOR COMFORT; HOB ELEVATED; BEDRAILS UP X2; BED DOWN AND LOCKED. ER MADE AWARE OF PT STATUS. PMH: HTN/DM/PANCREATITIS NKA
[2019-09-08 22:21] VITALS: BP 126/75
--- NOTE | 2019-09-08 22:21 | NUR ---
Patient discharged with v/s stable. Written and verbal after care instructions given and explained. Patient verbalized understanding. Ambulatory with steady gait. All questions addressed prior to discharge. Advised to follow up with PMD.
== END 2019-09-08 22:21 | disposition home or self-care (01) ==
LOC: MED 21:19
DX: T80.211D Bloodstream infection due to central venous catheter, subsequent encounter (principal); E11.9 Type 2 diabetes mellitus without complications; I10 Essential (primary) hypertension; K21.9 Gastro-esophageal reflux disease without esophagitis; Z79.899 Other long term (current) drug therapy
CPT/HCPCS: 99282

== ENCOUNTER 2019-11-01 10:50 | Inpatient (IN) | payer OTHER ==
[~2019-11-01] VITALS: Ht 188 cm; Wt 171.5 kg
--- NOTE | 2019-11-01 10:51 | NUR ---
Patient BIBA BLS, transferred to bed 11. RN evaluating patient at bedside.
--- NOTE | 2019-11-01 11:17 | NUR ---
33 y/o male biba als from home c/o N/V/D x 4 days and bilateral leg and foot swelling x approx 3 wks. Pt states multiple episodes of vomiting and diarrhea this morning. 10/10 abd and leg pain. Noticable drainage from bilateral feet. Able to ambulate, states increased pain. Awake and alert. VSS. Placed on bedside monitor. medhx: DM, HTN, pancreatitis
[2019-11-01] MEDS ORDERED: NACL 0.9% 500 ML IV SCH (11:24)
[2019-11-01] MEDS ORDERED: MORPHINE SULFATE 2 MG/ML SYR IVP ONE ×2 (11:25→12:55)
[2019-11-01] MEDS ORDERED: ONDANSETRON 4 MG/2 ML VIAL IVP ONE (11:25)
--- NOTE | 2019-11-01 11:30 | NUR ---
Pt states he is unable to give urine at this time. Will follow up with pt.
--- NOTE | 2019-11-01 12:21 | NUR ---
X-Ray at bedside.
--- NOTE | 2019-11-01 12:31 | NUR ---
APPLIED NONADHERENT DRESSING AND GAUZE TO LEFT FOOT WITHOUT ANY ISSUES
[2019-11-01] MEDS ORDERED: VANCOMYCIN 1,000 MG in DEXTROSE 5% 250 ML IV ONE (12:40)
[2019-11-01 12:44] LABS: ALBUMIN 1.7 g/dL (3.4-5.0); ANION GAP 16.1 (8-16); CARBON DIOXIDE 19.3 mmol/L (21-32); POTASSIUM 4.4 mmol/L (3.5-5.1); TOTAL BILIRUBIN 0.3 mg/dL (0.0-1.0)
--- NOTE | 2019-11-01 13:04 | NUR ---
RECIEVED CRITICAL FROM LAB, REPORTECD TO DR LUCIA---BUN 57 AND CR 4.8
[2019-11-01 13:05] LABS: PROTHROMBIN TIME 12.4 secs (10.8-13.4)
[2019-11-01 13:06] LABS: CREATININE 4.8 mg/dL (0.6-1.3)
[2019-11-01] MEDS ORDERED: VANCOMYCIN 1,000 MG VIAL ONE (13:09)
[2019-11-01 13:41] LABS: ACETAMINOPHEN < 0.5 ug/ml (10-30)
--- NOTE | 2019-11-01 14:23 | NUR ---
Awake and alert, positioned in bed for comfort. RR even and unlabored, VSS
--- NOTE | 2019-11-01 14:48 | NUR ---
Pt repeatedly stating he needs more pain medications due to increased pain. Dr Brower made aware
[2019-11-01 15:04] LABS: WHITE BLOOD COUNT (AUTO) 24.9 K/uL (4.8-10.8)
[2019-11-01 15:05] LABS: HEMOGLOBIN 6.5 g/dL (12.0-18.0); MEAN CORPUSCULAR HEMOGLOBIN 26 pg (27-31); MEAN CORPUSCULAR VOLUME 82.7 fL (80-94); RED BLOOD CELL COUNT(AUTO) 2.54 MIL/uL (4.20-6.10)
[2019-11-01 15:06] LABS: MEAN CORPUSCULAR HGB CONC 31 g/dL (33-37); PLATELET COUNT (AUTO) 600 K/uL (140-450); RED CELL DISTRIBUTION WIDTH 15.9 % (11.6-13.7)
[2019-11-01] MEDS ORDERED: LACTATED RINGERS 1,000 ML IV SCH (15:07)
--- NOTE | 2019-11-01 15:07 | NUR ---
WBC 24.9, Hemoglobin 6.5, Hematocrit 21.0-- Critical Value received from lab. Dr Brower made aware
[2019-11-01] MEDS ORDERED: METOCLOPRAMIDE 10 MG/2 ML INJ VIAL IVP PRN (15:10)
[2019-11-01] MEDS ORDERED: LORazepam 2 MG/ML VIAL IVP PRN (15:10)
[2019-11-01] MEDS ORDERED: ACETAMINOPHEN 325 MG TAB PO PRN (15:10)
[2019-11-01] MEDS ORDERED: ONDANSETRON 4 MG/2 ML VIAL IVP PRN (15:10)
[2019-11-01] MEDS ORDERED: MORPHINE SULFATE 4 MG/ML SYR ONE (15:14)
[2019-11-01] MEDS ORDERED: LORazepam 2 MG/ML VIAL ONE (15:15)
[2019-11-01 15:26] LABS: EOSINOPHILS % (MANUAL) 1 % (0-4); LYMPHOCYTES % (MANUAL) 5 % (20-46); MONOCYTES % (MANUAL) 2 % (5-12)
--- NOTE | 2019-11-01 15:40 | NUR ---
US exam completed at bedside by tech.
[2019-11-01] MEDS ORDERED: PROTEASE PO SCH (16:30)
[2019-11-01] MEDS ORDERED: LIPASE PO SCH (16:30)
[2019-11-01] MEDS ORDERED: AMYLASE PO SCH (16:30)
[2019-11-01 16:41] LABS: APPEARANCE,URINE CLEAR (CLEAR); BILIRUBIN,URINE NEGATIVE (NEGATIVE); BLOOD, URINE 2+ (NEGATIVE); COLOR,URINE YELLOW (YELLOW); LEUKOCYTE ESTERASE ,URINE NEGATIVE (NEGATIVE); NITRITE, URINE NEGATIVE (NEGATIVE); PH,URINE 5.5 (5.0-9.0); UGLUCOSE TRACE (NEGATIVE)
[2019-11-01] MEDS: MORPHINE SULFATE 4 MG/ML SYR IVP PRN (16:54)
[2019-11-01 17:03] LABS: RBC,URINE 0-5 /HPF (0-5); WBC,URINE 0-5 /HPF (0-5)
[2019-11-01 17:04] LABS: COARSE GRANULAR CASTS,URINE 0-10 /LPF (None Seen); HYALINE CASTS, URINE 0-10 /LPF (None Seen)
--- NOTE | 2019-11-01 17:08 | NUR ---
SITTING UPRIGHT AWAKE AND ALERT. NO COMPLAINTS AT THIS TIME. VSS
[2019-11-01 17:09] LABS: BARBITURATE, URINE NEGATIVE ng/ml (NEG <=200); BENZODIAZEPINE, URINE NEGATIVE ng/mL (NEG <=200); CANNABINOID, URINE POSITIVE ng/mL (NEG <=50); COCAINE, URINE NEGATIVE ng/mL (NEG <=300); OPIATE, URINE POSITIVE ng/mL (NEG <=2000); PHENCYCLIDINE SCREEN,URINE NEGATIVE ng/mL (NEG <=25)
--- NOTE | 2019-11-01 18:06 | NUR ---
Patient will be admitted to care of DR UMAÑA. Admited to [facility]. Will go to room 120A. Belongings list completed. Report to SALLIE HAWKINS.
--- NOTE | 2019-11-01 19:30 | NUR ---
RECEIVED PT FROM DAY SHIFT NURSE PT IS AAOX4 MORBID OBESITY PICC LINE ON RT UPPER ARM AND HL ON LEFT WRIST GAUGE #24 AND LEFT FOOT BIGT TOE AMPUTEE AND OPEN WOUND COVERED BY DRESSING DRY AND INTACT EDEMA ON BILATERAL LOWER EXTREMITIES, MRSA NARES SWAB DONE AND SENT TO THE LAB, PT IS ;ORIENTED TO THE FLOOR CALL LIGHT WITHIN REACH
[2019-11-01 20:00] VITALS: BP 140/90
[2019-11-01] MEDS: MORPHINE SULFATE 2 MG/ML SYR IVP PRN (20:49)
--- NOTE | 2019-11-01 22:00 | NUR ---
AFTER PAIN MEDIC GIVEN PT REMAIN QUIET NOT SIGNS OF PAIN
--- NOTE | 2019-11-01 23:00 | NUR ---
BLOOD IS NOT READY , SUPERVISOR ACCOUNTS RECEIVABLE WILL BE CALL WHEN BLOOD IS READY
[2019-11-02] VITALS: BP 176/93
[2019-11-02] MEDS: MORPHINE SULFATE 4 MG/ML SYR IVP PRN ×3 (01:10→12:13)
[2019-11-02] MEDS: CLONIDINE HYDROCHLORIDE 0.1 MG TAB PO PRN ×2 (02:38→12:14)
[2019-11-02 04:00] VITALS: BP 133/88
--- NOTE | 2019-11-02 04:00 | NUR ---
PT SLEEPING WELL AFTER PAIN MEDIC GIVEN AND BP MORE STABLE 133/88 NOT DISTRESS NOTED
--- NOTE | 2019-11-02 06:30 | NUR ---
PT WILL BE ENDORSED TO DAY SHIFT NURSE FOR CONTINUE OF CARE
--- NOTE | 2019-11-02 07:10 | NUR ---
RECEIVED REPORT FORM PHOTOGRAPHIC EQUIPMENT INSPECTOR NURSE FOR CONTINUITY OF CARE. PATIENT IS AAO X4. AWAKE AND RESTING IN BED. PICC LINE AT RIGHT UPPER ARM, NS 10CC/HR TKO. WOUND NOTED AT LEFT FOOT AND RIGHT LOWER LEG. PATIENT ON CLEAR LIQUID DIET. SAFETY MEASURE IN PLACE, CALL LIGHT IN REACH. WILL CONTINUE TO MONITOR.
[2019-11-02] MEDS: AMYLASE/LIPASE/PROTEASE 1 CAPDR PO SCH ×3 (07:47→17:10)
[2019-11-02 08:00] VITALS: BP 139/91
--- NOTE | 2019-11-02 08:13 | NUR ---
PATIENT COMPLAINTS OF ABDOMEN PAIN 11/14, V/S CHECKED. BP 139/97. MORPHINE 4MG GIVEN. EDUCATION PROVIDED. PATIENT REFUSED LOVENOX. PATIENT RESTING IN BED. CALL LIGHT IN REACH. WILL REASSESS AND MONITOR.
--- NOTE | 2019-11-02 08:48 | NUR ---
LAB DRAWN VIA PICC LINE
--- NOTE | 2019-11-02 08:51 | NUR ---
PATIENT HAS BEEN SCREENED AND CATEGORIZED HIGH NUTRITION RISK. PATIENT WILL BE SEEN WITHIN 1-2 DAYS OF ADMISSION. 11/02/19-11/03/[address]
[2019-11-02] MEDS ORDERED: ENOXAPARIN 40 MG/0.4 ML SYR SUBQ SCH (09:00)
[2019-11-02] MEDS ORDERED: ENOXAPARIN 30 MG/0.3 ML SYR SUBQ SCH (09:00)
[2019-11-02] MEDS ORDERED: CLINICAL MONITORING MC SCH (09:00)
[2019-11-02 09:01] LABS: BASOPHILS # (AUTO) 0.1 K/uL (0.00-0.22); BASOPHILS % (AUTO) 0.2 % (0.0-2.0); EOSINOPHILS # (AUTO) 0.1 K/uL (0-0.4); EOSINOPHILS % (AUTO) 0.4 % (0.0-4.0); HEMATOCRIT 20.5 % (36-52); LYMPHOCYTES # (AUTO) 1.3 K/uL (2.0-11.5); LYMPHOCYTES % (AUTO) 4.5 % (20.5-51.1); MEAN CORPUSCULAR HEMOGLOBIN 26 pg (27-31); MEAN CORPUSCULAR HGB CONC 31 g/dL (33-37); MEAN CORPUSCULAR VOLUME 83.5 fL (80-94); MONOCYTES # (AUTO) 2.4 K/uL (0.8-1.0); MONOCYTES % (AUTO) 8.3 % (1.7-9.3); NEUTROPHILS # (AUTO) 24.9 K/uL (1.8-7.7); NEUTROPHILS % (AUTO) 86.6 % (42.2-75.2); PLATELET COUNT (AUTO) 591 K/uL (140-450); RED BLOOD CELL COUNT(AUTO) 2.45 MIL/uL (4.20-6.10); RED CELL DISTRIBUTION WIDTH 16.1 % (11.6-13.7)
[2019-11-02 09:16] LABS: WHITE BLOOD COUNT (AUTO) 28.7 K/uL (4.8-10.8)
[2019-11-02 09:17] LABS: HEMOGLOBIN 6.4 g/dL (12.0-18.0)
[2019-11-02 10:00] LABS: ALBUMIN 1.4 g/dL (3.4-5.0); CARBON DIOXIDE 17.4 mmol/L (21-32); POTASSIUM 4.4 mmol/L (3.5-5.1); TOTAL BILIRUBIN 0.3 mg/dL (0.0-1.0)
[2019-11-02 10:03] LABS: CREATININE 4.4 mg/dL (0.6-1.3)
--- NOTE | 2019-11-02 12:25 | NUR ---
BLOOD TRANSFUSION WAS STARTED NOW.
[2019-11-02] MEDS: GAUZE TP SCH (13:00)
[2019-11-02] MEDS: MILD SOAP AND WATER TP SCH (13:00)
[2019-11-02] MEDS: NACL 0.9% IRR 250 ML BOTTLE IR SCH (13:00)
--- NOTE | 2019-11-02 13:21 | NUR ---
SURFACE WATER MANAGER NOTE: Patient's Orientation Person Situation Place Time Information Provided By PATIENT Comments SW MET PATIENT AT BEDSIDE TO VERIFY DEMOGRAPHICS. Speech Language Pathologist Prn, Realtionship and Phone Number SANDEE TURPIN SIGNIFICANT OTHER [phone] [facility] Power of Systems Development Manager No Does Patient Have a POLST No Identifying Problems No Social Work Triggers Is A Social Work Consult Needed No Mandate Report Filed No Explanation Of Identifying Problems PATIENT IS A 33-YEAR-OLD MALE ADMITTED FOR [facility]. PATIENT HAS PMHX OF DIABETES, GERD, HYPERTENSION, AND PANCREATITIS. PATIENT IS KNOWN TO HOSPITAL STAFF. Admitted From Home Pre-Admission Level Of Functioning Status Independent/Ambulatory Prior Resources/Services Used In Last 12 Months No Prior Resources Used Prior DME No Prior DME Used Living Situation Apartment Lives W/Significant Other Patient Had Caregiver No Home Support No Caregiver Issues Financial Issues No Known Financial Issue Referral To The Financial Counselor Needed No Factors/Needs No D/C Needs Identified Pt/Rep Participated In Discharge Plan Yes Patient/Family Agress With Discharge Plan Yes Discharge Plan Comments TENTATIVE DISCHARGE PLAN IS FOR PATIENT TO RETURN HOME. DC Plan Status Initiated
--- NOTE | 2019-11-02 14:29 | NUR ---
11/02/19 RD INITIAL ASSESSMENT COMPLETED PLEASE REFER TO NUTRITION ASSESSMENT UNDER CARE ACTIVITY FOR ESTIMATED NUTRITIONAL NEEDS. 1. CONTINUE CLEAR LIQUID DIET TOLERATED 2. RECOMMEND REJI BID AND ENSURE CLEAR TID FOR WOUND HEALING 3. WHEN MEDICALLY STABLE CONSIDER ADVANCING TO CCHO 75 GM WITH GLUCERNA TID AND REJI BID 4. RD TO FOLLOW-UP 2-3 DAYS, HIGH RISK YOLIE RECINOS RD
[2019-11-02] MEDS ORDERED: HYDROcodone/APAP 5/325 MG 1 TAB TAB PO PRN (14:30)
--- NOTE | 2019-11-02 15:40 | NUR ---
BLOOD TRANSFUSION WAS FINISHED NOW, NO SIGN OF DISTRESS NOTED.
--- NOTE | 2019-11-02 15:57 | NUR ---
RECEIVED BEDSIDE REPORT FROM ASHLYN FOR CONTINUITY OF CARE. PT IS IN STABLE CONDITION.
--- NOTE | 2019-11-02 15:58 | NUR ---
ENDORSED PT TO SALLIE MALHOTRA FOR CONTINUITY OF CARE.
[2019-11-02] MEDS: MORPHINE SULFATE 2 MG/ML SYR IVP PRN ×2 (16:03→20:57)
[2019-11-02] MEDS: PIPERACILLIN/TAZOBACTAM 2.25 GM in DEXTROSE 5% 50 ML IV SCH ×2 (16:04→21:05)
--- NOTE | 2019-11-02 16:04 | NUR ---
ADMINISTERED SCHEDULED ZOSYN PER MD ORDER, MED EDUCATION PROVIDED AND PATIENT VERBALIZED UNDERSTANDING. PATIENT COMPLAINED HE HAS 6/10 PAIN ON LEG, MEDICATED WITH PRN MORPHINE. PATIENT IS RESTING ON BED AT THIS TIME. NO SIGNS OF DISTRESS NOTED. SAFETY MEASURES IN PLACE.
--- NOTE | 2019-11-02 17:10 | NUR ---
ADMINISTERED SCHEDULED MED PER MD ORDER, MED EDUCATION PROVIDED AND PT VERBALIZED OK. PATIENT TOLERATED MED WELL. NO SIGNS OF DISTRESS NOTE. SAFETY MEASURES IN PLACE.
--- NOTE | 2019-11-02 19:20 | NUR ---
PATIENT REFUSED LAB DRAW, EXPLAINED TO PATIENT THAT IT'S FOR POST TRANSFUSION, PATIENT STATED, " THAT'S TOO MUCH BLOOD. I GOTTA THINK ABOUT IT. DEFINITELY NO FOR NOW." EXPLAINED TO STRAIGHT CUTTER MACHINE AND SHE WILL COME BACK AGAIN AT 0830. ENDORSED TO MANAGER LIFE SCIENCES NURSE ABOUT IT AND SABRA WAS AWARE.
--- NOTE | 2019-11-02 19:37 | NUR ---
ENDORSED PATIENT TO LINOTYPE MACHINIST NURSE SABRA FOR CONTINUITY OF CARE. PATIENT IS IN STABLE CONDITION.
--- NOTE | 2019-11-02 19:38 | NUR ---
RECD. SITTING ON BED, AWAKE, A/OX4. RESPIRATION EVEN AND UNLABORED. WITH PICC LINE AT THE RIGHT UPPER ARM, DOUBLE LUMEN. WOUND IN THE LEFT FOOT COVERED WITH DRESSING DRY AND INTACT. PAIN IN THE LEFT FOOT 05/17, WILL MEDICATE ORDERED. PLAN OF CARE DISCUSSED. VERBALIZED UNDERSTANDING.
[2019-11-02 20:00] VITALS: BP 146/77
--- NOTE | 2019-11-02 20:00 | NUR ---
Patient's Plan of Care was discussed and reviewed with SYSTEMS TESTING LABORATORY TECHNICIAN: SABRA HARRINGTON LVN
--- NOTE | 2019-11-02 21:05 | NUR ---
REFUSED HEPARIN, EXPLAINED THE IMPORTANCE OF THE MEDICATION, BUT STILL REFUSED.
[2019-11-03] MEDS: MORPHINE SULFATE 4 MG/ML SYR IVP PRN ×5 (00:48→18:46)
[2019-11-03] MEDS: NACL 0.9% IRR 250 ML BOTTLE IR SCH ×2 (01:23→13:06)
[2019-11-03] MEDS: MILD SOAP AND WATER TP SCH ×2 (01:23→13:06)
--- NOTE | 2019-11-03 01:40 | NUR ---
SLEEPING COMFORTABLY IN BED.
[2019-11-03] MEDS ORDERED: EPOETIN ALFA 10,000 UNITS/ML VIAL ONE (04:24)
[2019-11-03 05:00] VITALS: BP 150/78
[2019-11-03] MEDS: PIPERACILLIN/TAZOBACTAM 2.25 GM in DEXTROSE 5% 50 ML IV SCH ×3 (05:27→23:00)
--- NOTE | 2019-11-03 05:30 | NUR ---
COMPLAINT OF FOOT PAIN ATTENDED PROMPTLY, MEDICATED PER MD ORDER.
[2019-11-03 06:24] LABS: HEMATOCRIT 21.1 % (36-52); MEAN CORPUSCULAR HEMOGLOBIN 27 pg (27-31); MEAN CORPUSCULAR HGB CONC 32 g/dL (33-37); MEAN CORPUSCULAR VOLUME 83.7 fL (80-94); PLATELET COUNT (AUTO) 607 K/uL (140-450); RED BLOOD CELL COUNT(AUTO) 2.52 MIL/uL (4.20-6.10)
[2019-11-03 06:33] LABS: HEMOGLOBIN 6.8 g/dL (12.0-18.0)
--- NOTE | 2019-11-03 06:40 | NUR ---
INFORMED DR. UMAÑA, PATIENT WBC - 29.0, HGB - 6.8, HCT- 21.1 , ORDERED TO TRANSFUSE 1 UNIT PRBC.
[2019-11-03 06:57] LABS: ALBUMIN 1.3 g/dL (3.4-5.0); ANION GAP 17.1 (8-16); CARBON DIOXIDE 18.3 mmol/L (21-32); POTASSIUM 4.4 mmol/L (3.5-5.1); TOTAL BILIRUBIN 0.4 mg/dL (0.0-1.0)
--- NOTE | 2019-11-03 07:00 | NUR ---
CONDITION REMAIN STABLE. WILL ENDORSE TO AM SHIFT NURSE FOR CONTINUITY OF CARE.
--- NOTE | 2019-11-03 07:57 | NUR ---
RECEIVED REPORT FROM AUTOMOBILE RADIATOR MECHANIC NURSE. SITTING ON BED, AWAKE, A/OX4. RESPIRATION EVEN AND UNLABORED. WITH PICC LINE AT THE RIGHT UPPER ARM, DOUBLE LUMEN. WOUND IN THE LEFT FOOT COVERED WITH DRESSING DRY AND INTACT. WILL CONTINUE TO MONITOR. [facility]
[2019-11-03] MEDS: AMYLASE/LIPASE/PROTEASE 1 CAPDR PO SCH ×3 (08:16→16:26)
[2019-11-03] MEDS: CITRIC ACID/SODIUM CITRATE 30 ML UDC PO SCH ×3 (08:19→21:23)
--- NOTE | 2019-11-03 08:26 | NUR ---
ADMINISTERED MORNING MEDS. PT REFUSED HEPARIN. GIVEN MEDICATION EDUCATION. [facility]
--- NOTE | 2019-11-03 08:28 | NUR ---
CRITICAL LAB: CREATININE 4.5
[2019-11-03 08:44] LABS: CREATININE 4.5 mg/dL (0.6-1.3)
[2019-11-03 09:11] LABS: MONOCYTES % (MANUAL) 6 % (5-12)
[2019-11-03 09:12] LABS: METAMYELOCYTES % 2 % (0-0); MYELOCYTES % 1 % (0-0)
[2019-11-03 09:14] LABS: LYMPHOCYTES % (MANUAL) 6 % (20-46)
--- NOTE | 2019-11-03 10:46 | NUR ---
PT C/O 11/14 PAIN. GIVEN 8MG MORPHINE ORDERED. [facility] [place]
[2019-11-03] MEDS ORDERED: VANCOMYCIN PER PHARMACY MC PRN (11:05)
--- NOTE | 2019-11-03 11:42 | NUR ---
PER BLOOD BANK, THEY ARE WAITING FOR [facility] TO BRING THE 1 UNIT PRBC. PATIENT AWARE
[2019-11-03 12:00] VITALS: BP 151/77
--- NOTE | 2019-11-03 12:03 | NUR ---
SEEN IN PREVIOUS VISIT THAT PATIENT WAS WITH [facility]. FAXED PATIENTS CLINICALS TO [facility] AND [facility] WILL FOLLOW UP Addendum: 11/03/19 at 1346 by Tianna Doyle CM FOLLOWED UP WITH [facility] AND SPOKE TO ELANA. SHE STATED THAT PT REFUSED SERVICES LAST TIME AROUND. I WILL REACH OUT TO THE PATIENT Addendum: 11/03/19 at 1353 by Tianna Doyle CM SPOKE TO THE PATIENT ABOUT HOME HEALTH FOR WOUND CARE. HE AGREED TO ACCEPTING HOME HEALTH Addendum: 11/03/19 at 1359 by Tianna Doyle CM FOLLOWED UP WITH ELANA AT [facility] THEY ARE WILLING TO ACCEPT THIS PATIENT. Addendum: 11/03/19 at 1401 by Tianna Doyle CM NOTIFIED SALLIE GONSALES ABOUT ACCEPTING [facility] Addendum: 11/04/19 at 1537 by Regina Givens CM DC PLANING: FAXED THE LTAC ORDER TO [facility] PER JIE NO BED AT THIS TIME WILL FOLLOW UP TOMORROW. Addendum: 11/04/19 at 1643 by Regina Givens CM DC PLANNING PT IS IN AGREEMENT TO GO TO LTAC PER JIE WAITING FOR AUTHORIZATION FROM [facility] . I CALLED [facility] SPOKE WITH WAYNE STATED LTAC WONT BE APPROVED SHE IS APPROVING 3 MORE DAYS. IF WBC DOESN'T GO DOWN BY Friday11/08/19 WILL APPROVE LTAC. CM TO FOLLOW Addendum: 11/05/19 at 1413 by Daniela Lilly CM [facility] MADE AWARE THAT PATIENT TESTED POSITIVE FOR COVID, HE STATED [facility] IS ACCEPTING COVID POSITIVE PATIENTS NOW. HOWEVER THEY ARE LOW ON BEDS. HE STATED HE WILL FOLLOW UP. Addendum: 11/06/19 at 1224 by Regina Givens CM DC PLANNING: PER WAYNE AT [facility] STATED TO HOLD THE LTAC UNTIL FRIDAY TO MONITOR THE WBC. WBC TODAY 30.7 , ON IV ABX ZOSYN AND VANCOMYCIN. DC PLAN LTAC VS HOME WITH HOME HEALTH. CM TO FOLLOW Addendum: 11/09/19 at 1223 by Regina Gviens CM DC PLANNING: PER DR JAY PT NEEDS TO GO TO LTAC ,FAXED TO [facility] AND [facility] WORKING ON IT. CM TO FOLLOW Addendum: 11/09/19 at 1533 by Regina Givens DC PLANNING: RECEIVED A CALL FROM [facility] WILL AUTH FOR LTAC , NOTIFIED [facility] WILL BE READY PER [facility] AT THIS TIME CM TO FOLLOW. Addendum: 11/09/19 at 1550 by Regina Givens DC PLANNING: SPOKE WITH THE PATIENT REGARDING LTAC TRANSFER EXPLAIN FOR THE NEED OF ANTIBIOTICS ANSWERED ALL HIS QUESTION ,PT AGREED ON LTAC. CM TO FOLLOW Addendum: 11/10/19 at 1635 by Regina Givens DC PLANNING: PER JIE AT [facility] NO BED AVAILABLE TODAY WILL FOLLOW UP TOMORROW. DISCUSSED WITH DR SALINAS. IF WE CAN SEND PT TO SNF FOR WOUND CARE AND IV ABX. STATED OK TO TRY SNF. [facility] NO BED AVAILABLE. CM TO FOLLOW . Addendum: 11/11/19 at 1446 by Tianna Doyle CM FAXED PATIENTS CLINICALS TO [facility] AND [facility] WILL FOLLOW UP Addendum: 11/11/19 at 1559 by Tianna Doyle CM FOLLOWED UP WITH SANJU IN ADMISSIONS AT [facility] SHE CAN NOT ACCEPT THIS PATIENT BECAUSE HE IS COVID POSITIVE. Addendum: 11/12/19 at 0920 by Tianna Doyle CM CORRECTION SPOKE TO SANJU AT [facility] THEY COULD NOT ACCEPT COVID PATIENTS Addendum: 11/12/19 at 1537 by Regina Givens CM DC PLANNING: SEEN BY DR CRISTIAN OVALLE ORDERED CT CHEST/ABD AND PELVIS RESULT PENDING, JIE MOHAN IS WORKING ON IT CM TO FOLLOW. Addendum: 11/12/19 at 1617 by Regina Givens CM DC PLANING; SPOKE WITH THE PATIENT [facility]ING [facility], [facility] ,[facility] AND [facility]. PT WAS VERY UNCOOPERATIVE, AND ARGUMENTATIVE WITH EVERY WORD STATED IT IS TOO FAR FOR THE FAMILY I EXPLAIN NO VISITOR ALLOWED HERE WELL AND WE ARE THE ONE TO ARRANGE THE TRANSPORT WITH AMBULANCE. PT STATED GET OUT OF HERE DO WHAT EVER YOU WANT " AND MAKE THE TV SOUND LOUD. SPOKE WITH JIE AWAITING FOR BED AVAILABLE AT [facility]. CM TO FOLLOW Addendum: 11/14/19 at 1352 by Chao Izaguirre SS REESE SPOKE WITH JIE FROM [facility] REGARDING AVAILABLE BED TO [facility]. REESE SPOKE WITH PATIENT WHO STATED THAT HE IS NOT AGREEABLE TO GO TO ANY [facility] FACILITIES. REESE INFORMED JIE AND SPOKE WITH SALLIE PORTILLO. TENTATIVE DISCHARGE PLAN IS FOR PATIENT TO BE DISCHARGED TO [facility]. REESE WILL AWAIT PHYSICIAN'S ORDERS. Addendum: 11/15/19 at 1406 by Regina Givens CM DC PLANNING: SPOKE WITH THE PATIENT AT THE BED SIDE VERY UNCOOPERATIVE STATED "I DON'T WANT TO GO TO SNF, WHY DON'T YOU TEST ME COVID AGAIN AND SEND ME HOME" I EXPLAINED THAT HE NEEDS IV VANCOMYCIN FOR HIS LEG WOUND FOR A LONG TIME BUT PT IS VERY RUDE DIDN'T WANT TO HEAR ANYTHING FROM ME. I CLARIFIED IF HE WANTS TO GO TO SNF PT STATED OK IF IT IS AROUND THE AREA. SO FAR TRIED MOST OF THE SNFS BUT UNABLE TO GET ANY SNF TO ACCEPT THE PATIENT. FAXED TO [facility]. NICOLAS TO FOLLOW Addendum: 11/15/19 at 1506 by Tianna Doyle CM AT THIS TIME THERE ARE NO ACCEPTING SNFS THAT ARE ACCEPTING NEW PATIENTS WITH COVID. I FOLLOWED UP WITH [facility] AND SPOKE TO ELANA AT [facility] THEY ARE NOT ABLE TO ACCEPT COVID POSITIVES PATIENTS. Addendum: 11/15/19 at 1517 by Tianna Doyle CM REACHED OUT TO ZORAN AT [facility] [phone]. FAXED CLINICALS TO [phone] SHE STATED THAT THEY ARE ACCEPTING COVID POSITIVE PATIENTS. WILL FOLLOW UP Addendum: 11/15/19 at 1649 by Tianna Doyle CM FOLLOWED UP WITH ZORAN FROM [facility] THEY ARE REQUESTING AN ORDER FOR [facility] TO BE FAXED TO THEM. Addendum: 11/16/19 at 1024 by Chao MAYNARD REESE SPOKE WITH PATIENT PER PATIENT'S REQUEST. REESE PROVIDED INFORMATION ON [facility]. PATIENT EXPRESSED CONCERNS ABOUT [employer]IR[employer] AND STATED THAT HE MAY BE UNABLE TO GO HOME DUE TO PATIENT'S SIGNIFICANT OTHER, DEONNA TURPIN'S CONCERNS OF RODRIGUES VIRUS. PATIENT CONTACTED DEONNA IN ROOM AND DEONNA SPOKE TO REESE. REESE PROVIDED INFORMATION REGARDING [facility]. DEONNA STATED THAT SHE STILL HAS CONCERNS OF RODRIGUES VIRUS AND PATIENT RETURNING HOME. REESE EXPLAINED THAT PATIENT WOULD BE DISCHARGED TODAY PER . PATIENT VERBALIZED APPRECIATION AND REQUESTED REESE'S DIRECT LINE FOR DEONNA TO CONTACT. REESE WILL FOLLOW UP NEEDED. Addendum: 11/16/19 at 1217 by Tianna Doyle FAXED ORDER FOR HOME HEALTH TO [facility] AND [facility] FOR [facility] Addendum: 11/16/19 at 1434 by Chao MAYNARD REESE CONTACTED SANDEE REGARDING PATIENT'S DISCHARGE PLAN. REESE LEFT VM. REESE WILL FOLLOW UP. Addendum: 11/16/19 at 1614 by Chao MAYNARD REESE SPOKE WITH SANDEE AND PATIENT REGARDING DISCHARGE PLAN. PER SANDEE, SHE WILL ARRANGE A HOTEL FOR PATIENT TO [place]. REESE REQUESTED INFORMATION FOR HOTEL ADDRESS TO COORDINATE WITH HOME HEALTH. REESE PROVIDED [employer]IB CUTTER'S CONTACT INFORMATION TO ARRANGE HOME HEALTH TO PATIENT'S HOTEL. SANDEE STATED SHE WOULD SPEAK TO PATIENT AND CONTACT RIB CUTTER. RIB CUTTER WAS NOTIFIED. Addendum: 11/16/19 at 1623 by Chao MAYNARD REESE SPOKE WITH SANDEE REGARDING PATIENT'S DISCHARGE PLAN. SANDEE STATED THAT SHE HAS SET UP MOTEL FOR PATIENT AT [facility] [address] [facility] [address]. REESE NOTIFIED RIB CUTTER. Addendum: 11/16/19 at 1624 by Chao MAYNARD SANDEE ALSO STATED THAT PATIENT WILL BE PICKED UP AT 1800. RN WAS NOTIFIED. Addendum: 11/16/19 at 1650 by Tianna Doyle CM PATIENTS SANDEE CALLED BACK REQUESTING THAT WE SET UP TRANSPORTATION FOR PATIENT BECAUSE PT STATED THAT HE IS NOT AMBULATORY. FAXED TRANSPORTATION REQUEST TO [facility] [phone]. Addendum: 11/16/19 at 1703 by Tianna Doyle CM [employer] [phone] WILL BE PROVIDING [employer] TRANSPORTATION FOR PATIENT TO [place] [address] IN [place]. THE IS ON HER WAY TO THE MOTEL RIGHT NOW TO GET A ROOM NUMBER. I ASKED THE TO CALL THE FLOOR AND PROVIDE THE ROOM NUMBER. NOTIFIED SALLIE MITCHELL TO CONTACT [employer] AT [phone] TO PROVIDE ROOM NUMBER ONCE PROVIDES. IF ANY ISSUES WITH [facility] [employer] TRANSPORTATION CALL [facility] TRANSPORTATION AT [phone].
--- NOTE | 2019-11-03 12:03 | NUR ---
ERWIN BECERRA VIA IVPB. GIVEN MEDICATION EDUCATION. PATIENT NEEDS REINFORCEMENT WITH HIS CARE.
[2019-11-03] MEDS: metroNIDAZOLE 500 MG/NS PREMIX 100 ML IV SCH ×2 (12:54→23:51)
--- NOTE | 2019-11-03 12:58 | NUR ---
ERWIN CARL VIA IVPB. GIVEN MEDICATION EDUCATION. PT VERBALIZE UNDERSTANDING. NO ACUTE DISTRESS NOTED.
[2019-11-03] MEDS ORDERED: VANCOMYCIN 1,500 MG in DEXTROSE 5% 500 ML IV SCH (13:00)
[2019-11-03] MEDS: GAUZE TP SCH (13:06)
--- NOTE | 2019-11-03 13:06 | NUR ---
PATIENT REFUSED WOUND CARE ASSESSMENT AND DRESSING CHANGES. WILL TRY AGAIN LATER.
--- NOTE | 2019-11-03 14:46 | NUR ---
SEBASTIEN HOOD IVPB. PT C/O 11/14 PAIN. GIVEN DILAUDID PRN. NO ACUTE DISTRESS NOTED.
--- NOTE | 2019-11-03 16:26 | NUR ---
GIVEN SCHEDULE MEDICATION PO.
--- NOTE | 2019-11-03 16:51 | NUR ---
STARTED ONE UNIT OF BLOOD TRANSFUSION. PRE-TRANSFUSION VS FOLLOWS: AMRIT 150/101, HR 99, O2SAT 99%, RESP: 19, TEMP 98.2, ORALLY. DENIES PAIN. WILL CONTINUE TO MONITOR FOR BLOOD TRANSFUSION REACTIONS.
--- NOTE | 2019-11-03 17:06 | NUR ---
15-MINUTE AFTER TRANSFUSION STARTED VS FOLLOWS: 158/86, HR 103, 02SAT 100%, TEMP: 99.4, ORALLY, RESP: 18, DENIES PAIN. DENIES SOB, ITCHINESS. PATIENT IS SITTING UP IN BED.
--- NOTE | 2019-11-03 17:55 | NUR ---
60 MIN AFTER TRANSFUSION STARTED. VITAL SIGNS: BP: 138/83 HR: 113 TEMP: 99.1 ORALLY RR: 18 SAO2: 100% RA DENIES PAIN. DENIES SOB. PT SITTING UP IN BED. Addendum: 11/03/19 at 1759 by José Miguel Delgado RN HR 103
--- NOTE | 2019-11-03 18:46 | NUR ---
GIVEN MORPHINE FOR PAIN OF 12/15. GIVEN MEDICATION EDUCATION. BLOOD TRANSFUSION ONGOING. NO S/S OF TRANSFUSION REACTION. WILL CONTINUE TO MONITOR
--- NOTE | 2019-11-03 19:25 | NUR ---
ENDORSED PATIENT TO THE PAVING SUPERVISOR NURSE FOR CONTINUITY OF CARE. PATIENT IS IN STABLE CONDITION. BLOOD TRANSFUSION ONGOING. NO S/S OF BLOOD TRANSFUSION REACTION
--- NOTE | 2019-11-03 19:25 | NUR ---
PT ASSESSED AND PLAN OF CARE DISCUSSED WITH SABRA HARRINGTON LVN.
[2019-11-03 19:51] VITALS: BP 140/75
--- NOTE | 2019-11-03 20:00 | NUR ---
A/A/OX 4.PRBC IN PROGRESS.DENIES ANY DISCOMFORT.DENIES CP.LFT LEG ELEVATED ON PILLOWS.INSTRUCTED TO USE CALL LIGHT NEEDED;WITHIN REACH.
[2019-11-03] MEDS ORDERED: EPOETIN ALFA 10,000 UNITS/ML VIAL SUBQ SCH (21:00)
--- NOTE | 2019-11-03 21:22 | NUR ---
TYLENOL PO ADM.TEMP 100.
--- NOTE | 2019-11-03 22:00 | NUR ---
PRBC COMPLETED WITHOUT BLD REACTION NOTED.
[2019-11-03] MEDS: MORPHINE SULFATE 2 MG/ML SYR IVP PRN (23:33)
[2019-11-03] MEDS: ALBUMIN HUMAN 25% 50 ML IV SCH (23:46)
[2019-11-04] VITALS: BP 161/80
[2019-11-04 00:11] LABS: HEMATOCRIT 22.9 % (36-52); MEAN CORPUSCULAR VOLUME 84.4 fL (80-94); RED BLOOD CELL COUNT(AUTO) 2.71 MIL/uL (4.20-6.10)
[2019-11-04 00:18] LABS: MEAN CORPUSCULAR HEMOGLOBIN 27 pg (27-31); MEAN CORPUSCULAR HGB CONC 32 g/dL (33-37); PLATELET COUNT (AUTO) 624 K/uL (140-450); RED CELL DISTRIBUTION WIDTH 16.4 % (11.6-13.7)
[2019-11-04 00:28] LABS: ALBUMIN 1.3 g/dL (3.4-5.0); ANION GAP 17.8 (8-16); CARBON DIOXIDE 19.5 mmol/L (21-32); POTASSIUM 4.3 mmol/L (3.5-5.1); TOTAL BILIRUBIN 0.7 mg/dL (0.0-1.0)
[2019-11-04 00:51] LABS: WHITE BLOOD COUNT (AUTO) 32.9 K/uL (4.8-10.8)
[2019-11-04 00:52] LABS: HEMOGLOBIN 7.3 g/dL (12.0-18.0)
[2019-11-04 00:53] LABS: CREATININE 4.4 mg/dL (0.6-1.3); LYMPHOCYTES % (MANUAL) 6 % (20-46); MONOCYTES % (MANUAL) 1 % (5-12)
--- NOTE | 2019-11-04 00:55 | NUR ---
[facility] CALLED WBC 32.9,CREATININE 4.4.
[2019-11-04] MEDS: MILD SOAP AND WATER TP SCH ×2 (01:00→13:20)
[2019-11-04] MEDS: NACL 0.9% IRR 250 ML BOTTLE IR SCH ×2 (01:00→13:19)
--- NOTE | 2019-11-04 01:00 | NUR ---
WAS CALLED RE; LAB RESULTS.
--- NOTE | 2019-11-04 01:05 | NUR ---
@ 3665 RESPONDED & LAB RESULTS RELAYED.MADE AWARE OF PT'S ANTIBIOTICS.NO TEL ORDER GIVEN.
--- NOTE | 2019-11-04 03:00 | NUR ---
RESTING COMFORTABLY IN NO ACUTE DISTRESS.
[2019-11-04] MEDS: MORPHINE SULFATE 2 MG/ML SYR IVP PRN ×2 (03:13→08:37)
[2019-11-04] MEDS: CITRIC ACID/SODIUM CITRATE 30 ML UDC PO SCH ×3 (05:12→21:22)
[2019-11-04] MEDS: PIPERACILLIN/TAZOBACTAM 2.25 GM in DEXTROSE 5% 50 ML IV SCH ×3 (06:19→21:23)
[2019-11-04 06:20] LABS: HEMATOCRIT 23.1 % (36-52); HEMOGLOBIN 7.3 g/dL (12.0-18.0); MEAN CORPUSCULAR HEMOGLOBIN 27 pg (27-31); MEAN CORPUSCULAR HGB CONC 32 g/dL (33-37); MEAN CORPUSCULAR VOLUME 84.7 fL (80-94); PLATELET COUNT (AUTO) 648 K/uL (140-450); RED BLOOD CELL COUNT(AUTO) 2.72 MIL/uL (4.20-6.10); RED CELL DISTRIBUTION WIDTH 16.6 % (11.6-13.7)
--- NOTE | 2019-11-04 06:45 | NUR ---
ENDORSED A/A/O X4.NO ACUTE DISTRESS.IVF INFUSING WELL.CALL LIGHT WITHIN REACH.SAFETY MAINTAINED.
[2019-11-04] MEDS: metroNIDAZOLE 500 MG/NS PREMIX 100 ML IV SCH ×3 (06:51→21:00)
[2019-11-04] MEDS: AMYLASE/LIPASE/PROTEASE 1 CAPDR PO SCH ×3 (07:02→16:08)
[2019-11-04 07:14] LABS: ALBUMIN 1.4 g/dL (3.4-5.0); ANION GAP 19.9 (8-16); CARBON DIOXIDE 17.4 mmol/L (21-32); POTASSIUM 4.3 mmol/L (3.5-5.1); TOTAL BILIRUBIN 0.7 mg/dL (0.0-1.0)
--- NOTE | 2019-11-04 07:22 | NUR ---
CRITICAL LAB REPORT FROM LAB. CREATININE IS 4.3, TRENDING DOWN. MD IS AWARE OF CREATININE LEVEL, WILL CONTINUE TO MONITOR. Addendum: 11/05/19 at 0244 by Bernabe Gaytan RN WRONG TIME. CORRECT TIME IS 1921
--- NOTE | 2019-11-04 07:36 | NUR ---
SHIFT REPORT RECEIVED FROM PSYCHIATRIC TECH NURSE. PT IS SITTING UP IN BED AND RESPONSIVE. IV IN PLACE. NO COMPLAINS OF PAIN. NO DISTRESS NOTED. BED IN LOW POSITION. CALL LIGHT IN REACH.
[2019-11-04 07:37] LABS: LYMPHOCYTES % (MANUAL) 4 % (20-46); MONOCYTES % (MANUAL) 6 % (5-12); WHITE BLOOD COUNT (AUTO) 33.7 K/uL (4.8-10.8)
[2019-11-04 08:01] LABS: CREATININE 4.4 mg/dL (0.6-1.3)
[2019-11-04] MEDS: ALBUMIN HUMAN 25% 50 ML IV SCH ×2 (08:37→21:00)
--- NOTE | 2019-11-04 09:30 | NUR ---
PT IS SITTING IN BED. NOTED WITH ELEVATED BLOOD PRESSURE OF 160/98. WILL MEDICATE. NOTED WITH WOUND TO LEFT LOWER LEG. IV PIN PLACE AND INTACT. NO DISTRESS NOTED. WILL CONTINUE TO MONITOR. CALL LIGT IN REACH.
[2019-11-04] MEDS: CLONIDINE HYDROCHLORIDE 0.1 MG TAB PO PRN (10:13)
[2019-11-04] MEDS: MORPHINE SULFATE 4 MG/ML SYR IVP PRN ×3 (10:45→21:22)
--- NOTE | 2019-11-04 11:00 | NUR ---
PT IS COMPLAINING OF PAIN. GIVEN 8 MG OR MORPHINE. NOTIFIED DR UMAÑA. WILL CONTINUE TO MONITOR.
[2019-11-04 12:00] VITALS: BP 151/73
--- NOTE | 2019-11-04 13:00 | NUR ---
PT IS SITTING IN BED. NO DISTRESS NOTED. IV IN PLACE. WILL CONTINUE TO MONITOR. CALL LIGHTIN REACH.
[2019-11-04] MEDS: GAUZE TP SCH (13:20)
[2019-11-04] MEDS: VANCOMYCIN 1,500 MG in DEXTROSE 5% 500 ML IV SCH (14:18)
--- NOTE | 2019-11-04 14:36 | NUR ---
IV VANCOMYCIN INFUSING AT HIS TIME. PT WAS AMBULATING TO RESTROOM. WILL CONTINUE TO MONITOR.
[2019-11-04 19:10] LABS: ALBUMIN 1.4 g/dL (3.4-5.0); ANION GAP 17.5 (8-16); CARBON DIOXIDE 18.7 mmol/L (21-32); POTASSIUM 4.2 mmol/L (3.5-5.1); TOTAL BILIRUBIN 0.6 mg/dL (0.0-1.0)
--- NOTE | 2019-11-04 19:20 | NUR ---
RECEIVED CONTINUITY FROM AM NURSE. PATIENT IS RESTING ON THE BED. A/OP X 4, RESPIRATIONS EVEN AND UNLABORED. WOUNDS ON LEFT FOOT NOTED. DRESSING IS CLEAN, DRY, INTACT. RIGHT UPPER ARM PICC LINE, DOUBLE LUMEN NOTED. CALL LIGHT WITHIN REACH, SAFETY PRECAUTIONS IN PLACE. WILL CONTINUE TO MONITOR.
[2019-11-04 19:22] LABS: CREATININE 4.3 mg/dL (0.6-1.3)
--- NOTE | 2019-11-04 19:22 | NUR ---
SHIFT REPORT GIVEN TO PROVIDER SCRIBE NURSE. PT IS IN STABLE CONDITION. CALL LIGHT IN REACH.
[2019-11-04 20:00] VITALS: BP 134/74
--- NOTE | 2019-11-04 21:30 | NUR ---
PATIENT REPORTED SEVERE PAIN 9/10 IN RIGHT KNEE. MEDICATED ORDERED. ADMINISTERED PO MEDS. PATIENT REFUSE HEPARIN INJECTION, DESPITE PROVIDING EDUCATION. SAFETY PRECAUTIONS IN PLACE. WILL CONTINUE TO MONITOR.
--- NOTE | 2019-11-04 22:15 | NUR ---
PATIENT CALLED FOR SODA BUT THERE IS NO SODA ON THE UNIT. PATIENT NOTIFIED. NO SIGNS OF DISTRESS NOTED. WILL CONTINUE TO MONITOR.
[2019-11-05] MEDS: NACL 0.9% IRR 250 ML BOTTLE IR SCH ×2 (01:00→12:47)
[2019-11-05] MEDS: MILD SOAP AND WATER TP SCH ×2 (01:00→12:55)
--- NOTE | 2019-11-05 01:13 | NUR ---
PERFORMED WOUND CHANGE ON PATIENT. PATIENT MEDICATED PRIOR TO WOUND DRESSING CHANGE, HE WAS REPORTING PAIN 9/10 IN HIS LEFT FOOT. HEAVY SEROSANGUINEOUS DRAINAGE NOTED COMING FROM BOTTOM DRESSING. WOUND BED IS BLANCHABLE AND BLEEDING. CLEANSE WITH MILD SOAP AND WATER, IRRIGATE WITH NS, PAT DRESSING. APPLIED DRESSING, SECURED WITH TAPE, COVERED WITH TEJA WRAP. PATIENT TOLERATED PROCEDURE WELL. SAFETY PRECAUTION IN PLACE, WILL CONTINUE TO MONITOR.
[2019-11-05] MEDS: MORPHINE SULFATE 4 MG/ML SYR IVP PRN ×4 (01:55→20:41)
--- NOTE | 2019-11-05 03:20 | NUR ---
PATIENT IS SLEEPING IN BED. VISIBLE CHEST RISE NOTED. WILL CONTINUE TO MONITOR.
[2019-11-05 04:00] VITALS: BP 158/80
[2019-11-05] MEDS: metroNIDAZOLE 500 MG/NS PREMIX 100 ML IV SCH ×3 (05:00→20:41)
[2019-11-05] MEDS: PIPERACILLIN/TAZOBACTAM 2.25 GM in DEXTROSE 5% 50 ML IV SCH ×3 (05:00→20:26)
[2019-11-05] MEDS: CITRIC ACID/SODIUM CITRATE 30 ML UDC PO SCH ×3 (05:00→20:41)
--- NOTE | 2019-11-05 05:02 | NUR ---
ADMINISTERED ROUTINE MEDICATION. PATIENT TOLERATED WELL. WILL CONTINUE TO MONITOR.
--- NOTE | 2019-11-05 07:21 | NUR ---
ENDORSED CARE TO AM NURSE. PATIENT IS IN STABLE CONDITION.
--- NOTE | 2019-11-05 07:22 | NUR ---
RECEIVED PATIENT FROM INSPECTOR AGRICULTURAL COMMODITIES NURSE FOR CONTINUITY OF CARE. PATIENT IS AAOX 4. ON CLEAR LIQUID DIET. NOT IN ACUTE DISTRESS. RESPIRATORY EVEN AND UNLABORED. SAFETY MEASURE IN PLACE. CALL LIGHT IN REACH. WILL CONTINUE TO MONITOR.
[2019-11-05] MEDS: AMYLASE/LIPASE/PROTEASE 1 CAPDR PO SCH ×3 (07:46→16:42)
[2019-11-05] MEDS: ALBUMIN HUMAN 25% 50 ML IV SCH ×2 (08:55→21:58)
--- NOTE | 2019-11-05 09:11 | NUR ---
SCHEDULED MORNING MEDICATION GIVEN, HOWEVER, PATIENT REFUSED HEPARIN. EDUCATION PROVIDED. PATIENT WAS ON THE PHONE TALKING TO HIS FRIEND. CALL LIGHT IN REACH. WILL CONTINUE TO MONITOR.
--- NOTE | 2019-11-05 10:30 | NUR ---
WOUND CARE EVALUATION NOTE: WOUND CARE ASSESSMENT DONE TO PT. WITH CHRONIC WOUND TO LEFT FOOT.LEFT FOOT DEFORMATIVE WITH HX OF MULTIPLE SURGERIES AND DBRIDEMENTS. POC DISCUSSED. WOUND CARE TEACHING DONE PT. VERBALIZES UNDERSTANDING. ALL QUESTIONS ANSWERED. POC DISCUSSED WITH PRIMARY RN. -LEFT ANTERIOR FOOT SURGICAL WOUND 5X6X0.1CM WOUND BED 100% GRANULATING TISSUE WITH WOUND BED MOIST NO ODOR, WOUND EDGE FLAT WITH SUE WOUND SKIN INTACT DRY AND SCALY. -LEFT PLANTAR FOOT SURGICAL WOUND 85F19O4.5CM WOUND BED 60% GRANULATING TISSUE AND 40% SOFT YELLOW SLOUGH TISSUE, NO ODOR, WOUND EDGE FLAT WITH SUE WOUND SKIN MOIST SCALY. 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 -CLEANSE WOUNDS TO LEFT PLANTAR FOOT WITH NS, PAT DRY, APPLY XEROFORM DRESSING COVER WITH ABD DRESSING WRAP WITH TEJA BANDAGE QD AND PRN IF SOILING. -OFFLOADING LEFT FOOT ALL ABOVE RECOMMENDATIONS DISCUSSED WITH PRIMARY RN PLEASE CONTACT WOUND CARE NURSE FOR ANY QUESTION AND CHANGE OF WOUND CONDITION.
--- NOTE | 2019-11-05 11:06 | NUR ---
PAIN MED MORPHINE 8MG WAS GIVEN PER PATIENT REQUESTS FOR PAIN LEVEL 8/10. DR. UMAÑA CHECKED THE PATIENT
[2019-11-05 12:00] VITALS: BP 152/80
[2019-11-05] MEDS: HYDRAGUARD CREAM TP SCH ×2 (13:00→19:00)
[2019-11-05] MEDS: GAUZE TP SCH (13:00)
--- NOTE | 2019-11-05 13:12 | NUR ---
RECEIVED CALL FROM LAB, PATIENT'S COVID TEST RESULT POSITIVE. DROPLET PRECAUTION, SIGNS POSTED. NOTIFY STAFFS.
[2019-11-05] MEDS: VANCOMYCIN 1,500 MG in DEXTROSE 5% 500 ML IV SCH (14:30)
--- NOTE | 2019-11-05 15:02 | NUR ---
DR. UMAÑA PAGED ABOUT PATIENT'S DIET.
--- NOTE | 2019-11-05 15:15 | NUR ---
11/05/19 RD FOLLOW UP COMPLETED PLEASE REFER TO NUTRITION ASSESSMENT UNDER CARE ACTIVITY FOR ESTIMATED NUTRITIONAL NEEDS. 1. CONSIDER ADVANCING DIET TO CCHO 75 GM WITH GLUCERNA BID AND REJI BID 2. RECOMMEND VITAMIN C [address] PROVIDED NUTRITION EDUCATION ON WOUND HEALING DURING INITIAL ASSESSMENT VISIT 4. RD TO FOLLOW-UP 2-3 DAYS, HIGH RISK YOLIE RECINOS, RD
--- NOTE | 2019-11-05 19:30 | NUR ---
RECEIVED BEDSIDE REPORT FROM AM NURSE. PATIENT IS RESTING ON THE BED. AAOX4, RESPIRATIONS EVEN AND UNLABORED. WOUNDS ON LEFT FOOT AND RIGHT FOOT NOTED. DRESSING IS CLEAN, DRY, INTACT. RIGHT UPPER ARM PICC LINE, DOUBLE LUMEN NOTED. CALL LIGHT WITHIN REACH, SAFETY PRECAUTIONS IN PLACE. WILL CONTINUE TO MONITOR.
--- NOTE | 2019-11-05 19:30 | NUR ---
ENDORSED PATIENT TO GEODETIC SURVEY DIRECTOR NURSE FOR CONTINUITY OF CARE.
[2019-11-05 20:00] VITALS: BP 133/68
[2019-11-05 20:20] LABS: ALBUMIN 1.4 g/dL (3.4-5.0); ANION GAP 17.5 (8-16); CARBON DIOXIDE 19.5 mmol/L (21-32); TOTAL BILIRUBIN 0.7 mg/dL (0.0-1.0)
--- NOTE | 2019-11-05 20:26 | NUR ---
GIVEN ZOSYN MD ORDERED. TOOK A PICTURE OF RIGHT FOOT. CLEANSE WITH NS AND APPLIED WITH GAUZE.
[2019-11-05 20:27] LABS: CREATININE 4.5 mg/dL (0.6-1.3)
--- NOTE | 2019-11-05 20:30 | NUR ---
RECEIVED A CALL FROM LAB FOR CR 4.5. REPORTED TO DR. VELASQUEZ AND RECEIVED BMP ORDER IN THE MORNING. CATE.
--- NOTE | 2019-11-05 20:41 | NUR ---
GIVEN FLAGYL, BICITRA, HEPARIN MD ORDERED. PT C/O 01/14 PAIN, GIVEN MORPHINE MD ORDERED. PT TOLERATED WELL.
--- NOTE | 2019-11-05 21:59 | NUR ---
GIVEN ALBUMIN MD ORDERED. PT TOLERATED WELL.
[2019-11-06] VITALS: BP 155/82
--- NOTE | 2019-11-06 | NUR ---
VS WITHIN PT'S BASELINE. WILL CONTINUE TO MONITOR.
[2019-11-06] MEDS: MILD SOAP AND WATER TP SCH ×2 (01:52→13:00)
[2019-11-06] MEDS: NACL 0.9% IRR 250 ML BOTTLE IR SCH ×2 (01:52→13:00)
[2019-11-06] MEDS: MORPHINE SULFATE 4 MG/ML SYR IVP PRN ×4 (02:01→17:43)
--- NOTE | 2019-11-06 02:01 | NUR ---
PT C/O 10/ PAIN, GIVEN MORPHINE MD ORDERED. PT TOLERATED WELL.
[2019-11-06] MEDS: PIPERACILLIN/TAZOBACTAM 2.25 GM in DEXTROSE 5% 50 ML IV SCH ×3 (04:33→21:00)
--- NOTE | 2019-11-06 04:33 | NUR ---
GIVEN ZOSYN MD ORDERED. PT TOLERATED WELL.
[2019-11-06] MEDS: CITRIC ACID/SODIUM CITRATE 30 ML UDC PO SCH ×3 (06:06→21:00)
[2019-11-06] MEDS: HYDRAGUARD CREAM TP SCH ×3 (06:06→19:00)
[2019-11-06] MEDS: metroNIDAZOLE 500 MG/NS PREMIX 100 ML IV SCH ×3 (06:06→21:00)
--- NOTE | 2019-11-06 06:07 | NUR ---
GIVEN FLAGYL, BICITRA MD ORDERED. APPLIED HYDRAGUARD MD ORDERED. PT TOLERATED.
[2019-11-06 06:24] LABS: HEMATOCRIT 21.6 % (36-52); MEAN CORPUSCULAR HEMOGLOBIN 27 pg (27-31); MEAN CORPUSCULAR HGB CONC 32 g/dL (33-37); MEAN CORPUSCULAR VOLUME 84.9 fL (80-94); PLATELET COUNT (AUTO) 675 K/uL (140-450); RED BLOOD CELL COUNT(AUTO) 2.54 MIL/uL (4.20-6.10); RED CELL DISTRIBUTION WIDTH 16.2 % (11.6-13.7)
[2019-11-06] MEDS: AMYLASE/LIPASE/PROTEASE 1 CAPDR PO SCH ×3 (06:43→17:29)
[2019-11-06 06:45] LABS: ALBUMIN 1.6 g/dL (3.4-5.0); TOTAL BILIRUBIN 0.7 mg/dL (0.0-1.0)
--- NOTE | 2019-11-06 06:45 | NUR ---
GIVEN PANCREASE. PT C/O 01/14 PAIN. GIVEN MORPHINE MD ORDERED PT TOLERATED WELL.
--- NOTE | 2019-11-06 06:55 | NUR ---
RECEIVED A CALL FROM LAB FOR CR 4.8. CALLED DR. JAY. STATED "WHY DID YOU CALL ME? THIS IS NOT CRITICAL." NO ORDER RECEIVED.
[2019-11-06 06:59] LABS: CREATININE 4.8 mg/dL (0.6-1.3)
--- NOTE | 2019-11-06 07:20 | NUR ---
RECEIVED REPORT FROM PM RN. CO: ABDOMINAL PAIN. DX: EVA. HX: HTN, DM, OSTEOMYOLITIS OF LT FOOT, GERD, NEUOPATHY, RENAL STAGE 4. NKA, FULL CODE. A&O4. CLEAR LIQUID DIET. SALINE LOCK. PICC ERIC DOUBLE LUMEN. OPEN WOUND LT FOOD. MORPHINE Q4HR. LAST GIVEN 0630
[2019-11-06 08:00] VITALS: BP 145/78
[2019-11-06] MEDS: ALBUMIN HUMAN 25% 50 ML IV SCH ×2 (09:00→21:00)
--- NOTE | 2019-11-06 10:00 | NUR ---
PASSED PT MEDICATIONS. PT TOLERATED WELL. TROUBLE SHOOT ALBUMIN
--- NOTE | 2019-11-06 10:30 | NUR ---
CRITICAL LABS: WBC 30.7, HGB 6.9, HCT 31.6. PHYSICIAN NOTIFIED. NO FURTHER ORDERS
[2019-11-06 10:43] LABS: HEMOGLOBIN 6.9 g/dL (12.0-18.0); WHITE BLOOD COUNT (AUTO) 30.7 K/uL (4.8-10.8)
[2019-11-06 11:24] LABS: EOSINOPHILS % (MANUAL) 2 % (0-4); LYMPHOCYTES % (MANUAL) 5 % (20-46); MONOCYTES % (MANUAL) 3 % (5-12)
[2019-11-06] MEDS: GAUZE TP SCH (13:00)
--- NOTE | 2019-11-06 15:00 | NUR ---
CALLED PHARMACY FOR LATE MEDICATIONS DUE TO SLOW DELIVERY OF ALBUMIN.
[2019-11-06 16:00] VITALS: BP 114/78
--- NOTE | 2019-11-06 16:00 | NUR ---
SPOKE WITH [facility] FOR UPDATE ON [facility].
[2019-11-06] MEDS: VANCOMYCIN 1,500 MG in DEXTROSE 5% 500 ML IV SCH (18:02)
--- NOTE | 2019-11-06 19:30 | NUR ---
TRANSFER OF CARE TO PM RN. PT IS IN STABLE CONDITION. NO SIGNS OF DISTRESS.
--- NOTE | 2019-11-06 19:30 | NUR ---
SALVADOR BLOOD FROM [facility] FOR LAB.
[2019-11-06 19:50] LABS: ALBUMIN 1.5 g/dL (3.4-5.0); ANION GAP 17.4 (8-16); CARBON DIOXIDE 18.6 mmol/L (21-32); TOTAL BILIRUBIN 0.5 mg/dL (0.0-1.0)
[2019-11-06 20:00] VITALS: BP_SYST 122; BP_SYST 152; BP_DIAS 78
[2019-11-06] MEDS: MORPHINE SULFATE 2 MG/ML SYR IVP PRN (22:20)
[2019-11-07] MEDS: NACL 0.9% IRR 250 ML BOTTLE IR SCH ×2 (01:23→13:00)
[2019-11-07] MEDS: MILD SOAP AND WATER TP SCH ×2 (01:24→13:00)
[2019-11-07] MEDS: CITRIC ACID/SODIUM CITRATE 30 ML UDC PO SCH ×3 (05:01→21:39)
[2019-11-07] MEDS: metroNIDAZOLE 500 MG/NS PREMIX 100 ML IV SCH ×3 (05:01→21:38)
[2019-11-07] MEDS: MORPHINE SULFATE 2 MG/ML SYR IVP PRN ×4 (05:01→21:47)
[2019-11-07 06:12] LABS: BASOPHILS % (AUTO) 0.3 % (0.0-2.0); EOSINOPHILS # (AUTO) 0.3 K/uL (0-0.4); EOSINOPHILS % (AUTO) 2.1 % (0.0-4.0); LYMPHOCYTES # (AUTO) 0.9 K/uL (2.0-11.5); MEAN CORPUSCULAR HEMOGLOBIN 27 pg (27-31); MEAN CORPUSCULAR HGB CONC 31 g/dL (33-37); MEAN CORPUSCULAR VOLUME 86.8 fL (80-94); MONOCYTES # (AUTO) 1.5 K/uL (0.8-1.0); NEUTROPHILS # (AUTO) 13.1 K/uL (1.8-7.7); PLATELET COUNT (AUTO) 520 K/uL (140-450); RED BLOOD CELL COUNT(AUTO) 2.12 MIL/uL (4.20-6.10); RED CELL DISTRIBUTION WIDTH 17.2 % (11.6-13.7); WHITE BLOOD COUNT (AUTO) 15.9 K/uL (4.8-10.8)
[2019-11-07] MEDS: HYDRAGUARD CREAM TP SCH ×3 (06:23→19:15)
[2019-11-07 06:26] LABS: ALBUMIN 1.4 g/dL (3.4-5.0); ANION GAP 14.9 (8-16); CARBON DIOXIDE 18.3 mmol/L (21-32); POTASSIUM 3.2 mmol/L (3.5-5.1); TOTAL BILIRUBIN 0.8 mg/dL (0.0-1.0)
[2019-11-07 06:34] LABS: HEMATOCRIT 18.4 % (36-52); HEMOGLOBIN 5.7 g/dL (12.0-18.0)
[2019-11-07] MEDS: AMYLASE/LIPASE/PROTEASE 1 CAPDR PO SCH ×3 (07:00→16:46)
[2019-11-07 07:19] LABS: LYMPHOCYTES % (AUTO) 5.8 % (20.5-51.1); MONOCYTES % (AUTO) 9.4 % (1.7-9.3); NEUTROPHILS % (AUTO) 82.4 % (42.2-75.2)
[2019-11-07 07:29] LABS: CREATININE 4.8 mg/dL (0.6-1.3)
[2019-11-07] MEDS ORDERED: INSULIN LISPRO SLIDING SCALE 100 UNITS/ML VIAL SUBQ PRN ×2 (07:30→07:35)
--- NOTE | 2019-11-07 07:30 | NUR ---
RECEIVED REPORT FROM RESEARCH CENTER PARTNER NURSE FOR CONTINUITY OF CARE. PATIENT IS AAO X4. WOUND AT RIGHT WOUND AND RIGHT FOOT. PATIENT IS NOT IN ACUTE DISTRESS, ISOLATION PRECAUTION DUE TO COVID +. PATIENT RESTING IN BED. CALL LIGHT IN REACH. WILL CONTINUE TO MONITOR.
--- NOTE | 2019-11-07 07:43 | NUR ---
CALL BACK FROM DR. JAY. CRITICAL RESULTS REPORTED. ORDERS OBTAINED. DAY NURSE AWARE.
--- NOTE | 2019-11-07 07:50 | NUR ---
PER BREAKER LAYER, PATIENT'S GLUCOSE LEVEL 678 THIS MORNING. STAR ORDER OF 15 UNITS OF HUMALOG. SN WILL RECHECK PATIENT'S BS LEVEL AND FOLLOW ORDER IF BS LEVEL STILL HIGH.
[2019-11-07 08:00] VITALS: BP 153/71
[2019-11-07] MEDS ORDERED: INSULIN LISPRO 100 UNITS/ML VIAL SUBQ SCH (08:30)
[2019-11-07] MEDS: ALBUMIN HUMAN 25% 50 ML IV SCH (08:45)
--- NOTE | 2019-11-07 08:45 | NUR ---
SCHEDULED MORNING MEDS GIVEN, EDUCATION PROVIDED, PATIENT TOLERATED THE PROCEDURE WELL. PATIENT REFUSED HEPARIN, WILL RETURN TO [facility].
[2019-11-07] MEDS ORDERED: INSULIN LANTUS 100 UNITS/ML 10 ML VIAL SUBQ SCH ×2 (09:00)
--- NOTE | 2019-11-07 09:45 | NUR ---
PATIENT'S BLOOD GLUCOSE LEVEL 161. PATIENT REFUSED INSULIN.
--- NOTE | 2019-11-07 10:49 | NUR ---
MORPHINE 2MG GIVEN, PER PATIENT REQUESTED DUE TO MODERATE PAIN. PATIENT RESTING IN BED, V/C CHECKED, BP 149/76, HR 87. WILL REASSESS IN 1 HOUR.
--- NOTE | 2019-11-07 12:46 | NUR ---
PATIENT'S BLOOD GLUCOSE LEVEL 151. NO INSULIN WAS GIVEN. PATIENT WILL BE NPO AFTER MIDNIGHT, PER MD ORDER.
[2019-11-07] MEDS: GAUZE TP SCH (13:00)
[2019-11-07] MEDS ORDERED: ALBUMIN HUMAN 25% 50 ML IV SCH (13:30)
--- NOTE | 2019-11-07 13:35 | NUR ---
WOUND CARE AND DRESSING CHANGE DONE. PATIENT TOLERATED THE PROCEDURE WELL.
[2019-11-07] MEDS: VANCOMYCIN 1,500 MG in DEXTROSE 5% 500 ML IV SCH (14:30)
[2019-11-07 16:00] VITALS: BP 141/68
--- NOTE | 2019-11-07 16:43 | NUR ---
ADMINISTERED 2MG OF MORPHINE, PER PATIENT REQUESTS, PAIN AT LEFT LOWER LEG AND RIGHT LOWER LEG, 5/10. EDUCATION PROVIDED. PATIENT TOLERATED THE PROCEDURE WELL. WILL REASSESS THE PATIENT
--- NOTE | 2019-11-07 17:05 | NUR ---
STARTED BLOOD TRANSFUSION, V/S CHECKED. WILL CONTINUE TO MONITOR.
[2019-11-07] MEDS: CLONIDINE HYDROCHLORIDE 0.1 MG TAB PO PRN (17:49)
--- NOTE | 2019-11-07 19:00 | NUR ---
BLOOD TRANSFUSION FINISHED AND PATIENT TOLERATED THE PROCEDURE WELL, WITH NO REACTION NOTED.
--- NOTE | 2019-11-07 19:25 | NUR ---
ENDORSED PATIENT TO NAVAL SURFACE FIRE SUPPORT PLANNER NURSE FOR CONTINUITY OF CARE.
--- NOTE | 2019-11-07 20:20 | NUR ---
PT'S HGB IS 5.7 AM LABS, PT'S BLOOD BEING TRANSFUSED NOW, CALLED KENRICK HALEY AND WAITING FOR HIM TO CALL BACK: RE: IF SHOULD I GIVE THE 4TH TRANSFUSION- 4TH BAG.
--- NOTE | 2019-11-07 20:36 | NUR ---
TALKED TO DR. CHOUDHARY, HE SAID THAT RE: 5.7 TAKE STAT CBC NOW; AND IF LESS THAN 8.0 THEN GIVE THE 4TH BAG OF PRBC. ALSO TOLD HIM THAT PT'S ALBUMIN LEVEL IS 1.4 = DR. CHOUDHARY SAID IS FINE, NO FURTHER ORDERS FOR THE ALBUMIN
[2019-11-07 23:12] LABS: BASOPHILS % (AUTO) 0.3 % (0.0-2.0); EOSINOPHILS # (AUTO) 0.4 K/uL (0-0.4); MONOCYTES # (AUTO) 1.4 K/uL (0.8-1.0); RED CELL DISTRIBUTION WIDTH 16.5 % (11.6-13.7)
[2019-11-07 23:20] LABS: EOSINOPHILS % (AUTO) 3.1 % (0.0-4.0); LYMPHOCYTES % (AUTO) 6.7 % (20.5-51.1); MEAN CORPUSCULAR HEMOGLOBIN 26 pg (27-31); MEAN CORPUSCULAR HGB CONC 31 g/dL (33-37); NEUTROPHILS # (AUTO) 11.4 K/uL (1.8-7.7); NEUTROPHILS % (AUTO) 79.9 % (42.2-75.2); PLATELET COUNT (AUTO) 536 K/uL (140-450); RED BLOOD CELL COUNT(AUTO) 2.27 MIL/uL (4.20-6.10); WHITE BLOOD COUNT (AUTO) 14.2 K/uL (4.8-10.8)
[2019-11-08] VITALS: BP 123/66
[2019-11-08 00:07] LABS: HEMATOCRIT 19.3 % (36-52)
[2019-11-08] MEDS: NACL 0.9% IRR 250 ML BOTTLE IR SCH ×2 (01:00→13:21)
[2019-11-08] MEDS: MILD SOAP AND WATER TP SCH ×2 (01:00→13:21)
--- NOTE | 2019-11-08 01:00 | NUR ---
PT. UNCOOPERATIVE WOUND CARE,SAID HE WANTS THE SALES AGENT [employer] TO CHECK ON HIS LEG 1ST. WOUND CARE TEACHING DONE. PT. VERBALIZES UNDERSTANDING.
--- NOTE | 2019-11-08 01:15 | NUR ---
BT STARTED (4TH BT) , PRE-BT VS TAKEN; 97.3; 78; 17; 123/66/ 0/10
--- NOTE | 2019-11-08 01:30 | NUR ---
STAYED AT BEDSIDE FOR 15 MINS TO CHECK ON BT REACTION; NO URTICARIA; NO SOB; NO FEVER/ CHILLS NO C/O OF PAIN, WILL CONTINUE TO MONITOR
--- NOTE | 2019-11-08 02:05 | NUR ---
PT REFUSED TPO HAVE HIS FOOT IRRIGATED W/ AND W/ MILD SOAP AND WATER BECAUSE BLOOD IS BEING GIVEN RIGHT NOW (ONGOING BLOOD TRANSFUSION). LATER WILL TRY TO DO THE IRRIGATION
--- NOTE | 2019-11-08 03:40 | NUR ---
FINISHED BLOOD TRANSFUSION ; PT TOLERATED PROCEDURE WELL
--- NOTE | 2019-11-08 03:55 | NUR ---
POST BT VS; 97.3; 81; 17; 155/ 87; 0/10
[2019-11-08] MEDS: MORPHINE SULFATE 2 MG/ML SYR IVP PRN ×5 (04:10→21:44)
--- NOTE | 2019-11-08 04:10 | NUR ---
C/O OF 8/10 BILATERAL LE PAIN; GIVEN MORPHINE
--- NOTE | 2019-11-08 04:38 | NUR ---
STILL INSISTED THAT HE WANTS THE FEATHER BONER TO CHECK ON HIS WOUND 1ST. NO WOUND CARE DONE
[2019-11-08] MEDS: CITRIC ACID/SODIUM CITRATE 30 ML UDC PO SCH ×4 (04:58→20:32)
[2019-11-08] MEDS: metroNIDAZOLE 500 MG/NS PREMIX 100 ML IV SCH ×3 (04:58→20:29)
--- NOTE | 2019-11-08 05:00 | NUR ---
PT REFUSED BACITRA SCHEDULED FOR 0500, HE SAID NO, I EXPLAINED THE BENEFITS AND RISKS, PT UNCOOPERATIVE.
[2019-11-08] MEDS: HYDRAGUARD CREAM TP SCH ×3 (07:03→19:40)
[2019-11-08] MEDS: AMYLASE/LIPASE/PROTEASE 1 CAPDR PO SCH ×3 (07:04→17:16)
--- NOTE | 2019-11-08 07:15 | NUR ---
RECEIVED PATIENT FROM [employer] NURSE BEATRIZ FOR CONTINUITY OF CARE. PATIENT IN STABLE CONDITION. RESPIRATIONS EVEN AND UNLABORED, ROOM AIR. IV INTACT AND PATENT. BED IN LOW POSITION. BED ALARM ON. CALL LIGHT WITHIN REACH. WILL CONTINUE TO MONITOR.
[2019-11-08 08:00] VITALS: BP 159/94
[2019-11-08] MEDS: INSULIN LANTUS 100 UNITS/ML 10 ML VIAL SUBQ SCH (09:07)
--- NOTE | 2019-11-08 09:07 | NUR ---
GAVE ORDERED DUE MEDICATIONS AT THIS TIME. PATIENT TOLERATED WELL AT THIS TIME. BED IN LOW POSITION. BED ALARM ON. CALL LIGHT WITHIN REACH. WILL CONTINUE TO MONITOR.
[2019-11-08] MEDS: HYDROCOLLOID DRESSING TP SCH (09:09)
[2019-11-08 09:43] LABS: BASOPHILS # (AUTO) 0.1 K/uL (0.00-0.22); BASOPHILS % (AUTO) 0.5 % (0.0-2.0); EOSINOPHILS # (AUTO) 0.4 K/uL (0-0.4); EOSINOPHILS % (AUTO) 2.3 % (0.0-4.0); HEMATOCRIT 25.2 % (36-52); HEMOGLOBIN 8.1 g/dL (12.0-18.0); LYMPHOCYTES # (AUTO) 0.9 K/uL (2.0-11.5); LYMPHOCYTES % (AUTO) 5.8 % (20.5-51.1); MEAN CORPUSCULAR HEMOGLOBIN 27 pg (27-31); MEAN CORPUSCULAR HGB CONC 32 g/dL (33-37); MEAN CORPUSCULAR VOLUME 84.1 fL (80-94); MONOCYTES # (AUTO) 1.4 K/uL (0.8-1.0); MONOCYTES % (AUTO) 9.1 % (1.7-9.3); NEUTROPHILS # (AUTO) 13.1 K/uL (1.8-7.7); NEUTROPHILS % (AUTO) 82.3 % (42.2-75.2); PLATELET COUNT (AUTO) 667 K/uL (140-450); RED BLOOD CELL COUNT(AUTO) 2.99 MIL/uL (4.20-6.10); RED CELL DISTRIBUTION WIDTH 16.2 % (11.6-13.7); WHITE BLOOD COUNT (AUTO) 15.9 K/uL (4.8-10.8)
[2019-11-08 10:01] LABS: ALBUMIN 1.6 g/dL (3.4-5.0); ANION GAP 15.5 (8-16); CARBON DIOXIDE 21.2 mmol/L (21-32); POTASSIUM 3.7 mmol/L (3.5-5.1); TOTAL BILIRUBIN 0.7 mg/dL (0.0-1.0)
[2019-11-08 10:16] LABS: CREATININE 4.7 mg/dL (0.6-1.3)
[2019-11-08] MEDS ORDERED: INSULIN LISPRO SLIDING SCALE 100 UNITS/ML VIAL SUBQ PRN (11:05)
--- NOTE | 2019-11-08 11:10 | NUR ---
PATIENT WATCHING TV IN STABLE CONDITION. RESPIRATIONS EVEN AND UNLABORED. BED IN LOW POSITION. BED ALARM ON. CALL LIGHT WITHIN REACH. WILL CONTINUE TO MONITOR.
[2019-11-08] MEDS: BLOOD GLUCOSE MONITORING 1 DEV DEV FS SCH ×3 (11:21→20:30)
[2019-11-08] MEDS: GAUZE TP SCH (13:20)
--- NOTE | 2019-11-08 13:25 | NUR ---
PATIENT FAMILY DROPPED OFF FOOD ([employer]) AT FRONT LOBBY. UNKNOWN WHO GAVE FOOD TO PATIENT. PATIENT IN STABLE CONDITION. BED IN LOW POSITION. BED ALARM ON. CALL LIGHT WITHIN REACH. WILL CONTINUE TO MONITOR.
[2019-11-08] MEDS: VANCOMYCIN 1,500 MG in DEXTROSE 5% 500 ML IV SCH (15:04)
--- NOTE | 2019-11-08 15:44 | NUR ---
PATIENT SLEEPING AT THIS TIME. RESPIRATIONS EVEN AND UNLABORED. BED IN LOW POSITION. BED ALARM ON. CALL LIGHT WITHIN REACH. WILL CONTINUE TO MONITOR.
[2019-11-08 16:00] VITALS: BP 137/90
--- NOTE | 2019-11-08 16:04 | NUR ---
11/08/19 RD FOLLOW UP COMPLETED PLEASE REFER TO NUTRITION ASSESSMENT UNDER CARE ACTIVITY FOR ESTIMATED NUTRITIONAL NEEDS. 1. CONTINUE CCHO AND RENAL DIET 2. CONTINUE FLUID RESTRICTION OF 1300 ML/DAY 3. RECOMMEND REJI BID 4. ENCOURAGE PO INTAKE 5. RD TO FOLLOW-UP 2-3 DAYS, HIGH RISK YOLIE RECINOS, RD
--- NOTE | 2019-11-08 18:01 | NUR ---
PATIENT IN STABLE CONDITION. RESPIRATIONS EVEN AND UNLABORED. BED IN LOW POSITION. BED ALARM ON. CALL LIGHT WITHIN REACH. WILL CONTINUE TO MONITOR.
--- NOTE | 2019-11-08 19:14 | NUR ---
GAVE REPORT TO CLIPPER MACHINE OPERATOR NURSE FOR CONTINUITY OF CARE. PATIENT IN STABLE CONDITION.
--- NOTE | 2019-11-08 19:15 | NUR ---
RECEIVED BEDSIDE REPORT FROM DAY SHIFT NURSE. PATIENT IS AWAKE, RESPIRATION EVEN UNLABORED ON ROOM AIR. NO DISTRESS NOTED. SKIN IS WARM AND DRY. RIGHT UPPER ARM PICC LINE NOTED. PLAN OF CARE WAS DISCUSSED. ALL SAFETY MEASURES IN PLACE. BED IS AT LOW POSITION. CALL LIGHT WITHIN REACH. WILL CONTINUE TO MONITOR.
--- NOTE | 2019-11-08 20:00 | NUR ---
INITIAL ASSESSMENT DONE. VITALS WERE TAKEN. LEFT FOOT DRESSING NOTED DRY AND INTACT. WILL CONTINUE TO MONITOR.
--- NOTE | 2019-11-08 20:30 | NUR ---
ALL SCHEDULED MEDS WERE GIVEN PER ORDER. PATIENT REFUSED HEPARIN INJECTION AND BICITRA. EDUCATED THE RISK AND BENEFITS OF THE MEDICATION. PATIENT STILL REFUSED X2. UNABLE TO RETURN MEDICATION DUE TO PATIENT IS + COVID. WILL CONTINUE TO MONITOR.
[2019-11-09] VITALS: BP 147/87
--- NOTE | 2019-11-09 00:10 | NUR ---
VITALS WERE TAKEN. PATIENT IN STABLE CONDITION. NO DISTRESS NOTED. WILL CONTINUE TO MONITOR.
[2019-11-09] MEDS: MILD SOAP AND WATER TP SCH ×2 (01:00→13:00)
[2019-11-09] MEDS: NACL 0.9% IRR 250 ML BOTTLE IR SCH ×2 (01:00→13:00)
--- NOTE | 2019-11-09 01:00 | NUR ---
PER DAY SHIFT NURSE DRESSING CHANGE WILL BE .SAT BY PODIATRY
[2019-11-09] MEDS: MORPHINE SULFATE 2 MG/ML SYR IVP PRN ×4 (02:10→22:04)
--- NOTE | 2019-11-09 02:10 | NUR ---
PATIENT COMPLAINED OF PAIN 6/. PRN PAIN MED ADMINISTERED PER ORDER. WILL CONTINUE TO MONITOR.
[2019-11-09] MEDS: CITRIC ACID/SODIUM CITRATE 30 ML UDC PO SCH ×3 (05:00→21:00)
[2019-11-09] MEDS: metroNIDAZOLE 500 MG/NS PREMIX 100 ML IV SCH ×3 (05:03→21:19)
[2019-11-09] MEDS: HYDRAGUARD CREAM TP SCH ×3 (06:09→19:00)
[2019-11-09] MEDS: AMYLASE/LIPASE/PROTEASE 1 CAPDR PO SCH ×3 (06:34→17:08)
[2019-11-09] MEDS: BLOOD GLUCOSE MONITORING 1 DEV DEV FS SCH ×4 (06:36→21:20)
--- NOTE | 2019-11-09 06:38 | NUR ---
PATIENT COMPLAINED OF PAIN /10. PRN PAIN MED ADMINISTERED PER ORDER. WILL CONTINUE TO MONITOR.
--- NOTE | 2019-11-09 07:16 | NUR ---
RECEIVED BEDSIDE REPORT FROM AERIAL ADVERTISER NURSE. PATIENT IS AWAKE, RESPIRATION EVEN UNLABORED ON ROOM AIR. NO DISTRESS NOTED. RIGHT UPPER ARM PICC LINE NOTED. PLAN OF CARE WAS DISCUSSED. ALL SAFETY MEASURES IN PLACE. BED IS AT LOW POSITION. CALL LIGHT WITHIN REACH. WILL CONTINUE TO MONITOR.
--- NOTE | 2019-11-09 07:19 | NUR ---
ENDORSED PATIENT TO DAY SHIFT NURSE FOR CONTINUITY OF CARE. PATIENT IN STABLE CONDITION.
[2019-11-09 08:00] VITALS: BP 166/108
[2019-11-09] MEDS: INSULIN LANTUS 100 UNITS/ML 10 ML VIAL SUBQ SCH (09:00)
[2019-11-09] MEDS: EPOETIN ALFA 10,000 UNITS/ML VIAL IV SCH (09:56)
--- NOTE | 2019-11-09 09:56 | NUR ---
SCHEDULED MEDS GIVEN. PT REFUSED INSULIN LANTUS AND HEPARIN. EDUCATION PROVIDED. SAFETY MEASURE IN PLACE. WILL CONTINUE TO MONITOR.
--- NOTE | 2019-11-09 10:04 | NUR ---
PRN BP MED CLONIDINE 0.1 MG GIVEN FOR BP LEVEL 189/93. EDUCATION PROVIDED, VERBALIZED UNDERSTANDING. WILL CONTINUE TO MONITOR.
--- NOTE | 2019-11-09 10:09 | NUR ---
RECEIVED CALL FROM LAB, PATIENT REFUSED LAB DRAWN THIS MORNING. WILL INFORM .
--- NOTE | 2019-11-09 12:58 | NUR ---
MORPHINE 2MG ADMINISTERED VIA IVP, PER PT'S REQUESTS, PAIN LEVEL 5/10 AT BILATERAL LEGS. PATIENT REFUSED BICITRA. WILL CONTINUE TO MONITOR.
[2019-11-09] MEDS: GAUZE TP SCH (13:00)
--- NOTE | 2019-11-09 13:00 | NUR ---
WOUND CARE AND DRESSING CHANGED, PER PATIENT REQUESTS, WOUND DRESSING SOILED. PT TOLERATED THE PROCEDURE WELL.
[2019-11-09] MEDS: CLONIDINE HYDROCHLORIDE 0.1 MG TAB PO PRN (13:03)
--- NOTE | 2019-11-09 13:15 | NUR ---
PATIENT REFUSED MED BICITRA. EXPLAINED TO PATIENT THE INDICATION OF BICITRA, PATIENT STILL REFUSED.
[2019-11-09] MEDS: VANCOMYCIN 1,500 MG in DEXTROSE 5% 500 ML IV SCH (14:30)
--- NOTE | 2019-11-09 15:15 | NUR ---
PATIENT RESTING IN BED, RESPIRATORY EVEN AND UNLABORED. PATIENT NOT IN ACUTE DISTRESS, WILL CONTINUE TO MONITOR.
[2019-11-09 16:00] VITALS: BP 176/99
--- NOTE | 2019-11-09 17:20 | NUR ---
PATIENT SITTING IN BED, NO ACUTE DISTRESS NOTED, CALL LIGHT WITHIN REACH, WILL CONTINUE TO MONITOR.
--- NOTE | 2019-11-09 19:30 | NUR ---
ENDORSED PATIENT TO PULP BEATER NURSE FOR CONTINUITY OF CARE.
--- NOTE | 2019-11-09 19:30 | NUR ---
RECEIVED PT AAOX4 , NID - RA O2 SAT WNL . PICC LINE INTACT AND PATENT . PER AM NURSE PT REFUSED ORAL MEDS - DOCTOR AWARE . PER AM NURSE SHE JUST CHANGED THE WOUND DRESSING BEC. FULLY SOAKED . FOR TRANSFER TO [facility] ONCE AVAILABLE .PLAN OF CARE DISCUSSED AND VERBALIZE UNDERSTANDING , NEEDS RE INFORCEMENT .CALL LIGHT WITHIBN REACH .
--- NOTE | 2019-11-09 22:00 | NUR ---
REFUSED ORAL MEDS . IV FLAGY GIVEN WILL CONT. TO MONITOR.
[2019-11-10] VITALS: BP 150/90
--- NOTE | 2019-11-10 | NUR ---
MADE ROUNDS , NO S/SX OF ACUTE DISTRESS NOTED . WILL CONT. TO MONITOR.
[2019-11-10] MEDS: NACL 0.9% IRR 250 ML BOTTLE IR SCH ×2 (01:00→12:45)
[2019-11-10] MEDS: MILD SOAP AND WATER TP SCH ×2 (01:00→12:47)
--- NOTE | 2019-11-10 02:00 | NUR ---
SLEEPING - O2 SAT. WNL
--- NOTE | 2019-11-10 04:00 | NUR ---
MADE ROUNDS , C/O PAIN WILL MEDICATE .O2 SAT WNL .
[2019-11-10] MEDS: metroNIDAZOLE 500 MG/NS PREMIX 100 ML IV SCH ×3 (04:32→20:43)
[2019-11-10] MEDS: CITRIC ACID/SODIUM CITRATE 30 ML UDC PO SCH ×3 (04:32→20:43)
[2019-11-10 05:04] LABS: BASOPHILS % (AUTO) 0.3 % (0.0-2.0); EOSINOPHILS # (AUTO) 0.2 K/uL (0-0.4); EOSINOPHILS % (AUTO) 2.2 % (0.0-4.0); HEMATOCRIT 22.7 % (36-52); LYMPHOCYTES # (AUTO) 1.2 K/uL (2.0-11.5); LYMPHOCYTES % (AUTO) 11.4 % (20.5-51.1); MEAN CORPUSCULAR HEMOGLOBIN 27 pg (27-31); MEAN CORPUSCULAR HGB CONC 33 g/dL (33-37); MEAN CORPUSCULAR VOLUME 83.3 fL (80-94); MONOCYTES # (AUTO) 1.3 K/uL (0.8-1.0); MONOCYTES % (AUTO) 12.8 % (1.7-9.3); NEUTROPHILS # (AUTO) 7.4 K/uL (1.8-7.7); NEUTROPHILS % (AUTO) 73.3 % (42.2-75.2); RED BLOOD CELL COUNT(AUTO) 2.73 MIL/uL (4.20-6.10); RED CELL DISTRIBUTION WIDTH 16.7 % (11.6-13.7); WHITE BLOOD COUNT (AUTO) 10.2 K/uL (4.8-10.8)
[2019-11-10 05:13] LABS: HEMOGLOBIN 7.4 g/dL (12.0-18.0); PLATELET COUNT (AUTO) 537 K/uL (140-450)
[2019-11-10 05:18] LABS: ANION GAP 13.7 (8-16); CARBON DIOXIDE 20.9 mmol/L (21-32); CREATININE 3.9 mg/dL (0.6-1.3); POTASSIUM 3.6 mmol/L (3.5-5.1)
--- NOTE | 2019-11-10 06:00 | NUR ---
MADE ROUNDS , NO S/SX OF ACUTE DISTRESS NOTED . REFUSED ORAL MEDS , HGT - WILL ENDORSED .
[2019-11-10] MEDS: HYDRAGUARD CREAM TP SCH ×3 (07:00→18:01)
[2019-11-10] MEDS: BLOOD GLUCOSE MONITORING 1 DEV DEV FS SCH ×4 (07:30→20:43)
[2019-11-10] MEDS: AMYLASE/LIPASE/PROTEASE 1 CAPDR PO SCH ×3 (07:30→16:52)
--- NOTE | 2019-11-10 07:30 | NUR ---
ENDORSED TO AM SHIFT - PT - STABLE .
--- NOTE | 2019-11-10 07:30 | NUR ---
RECEIVED REPORT FROM DEHYDRATOR TENDER NURSE. PT AWAKE IN BED. AOX4, NO SOB, RESPIRATIONS ARE EVEN AND UNLABORED, NO C/O PAIN. ON ROOM AIR. WITH ERIC PICC LINE ON TKO. ISOLATION PRECAUTION OBSERVED, SAFETY PRECAUTIONS IN PLACE. CALL LIGHT WITHIN REACH. WILL CONTINUE TO MONITOR
[2019-11-10 08:00] VITALS: BP 183/101
[2019-11-10] MEDS: HYDROCOLLOID DRESSING TP SCH (09:18)
[2019-11-10] MEDS: MORPHINE SULFATE 2 MG/ML SYR IVP PRN ×3 (09:30→18:05)
--- NOTE | 2019-11-10 09:32 | NUR ---
DUE MORNING MEDS GIVEN. CLONIDINE GIVEN D/T BP 183/101. WITH C/O BLE PAIN 11/14. MORPHINE GIVEN ORDERED. PT REFUSED HEPARIN. BENEFITS EXPLAINED BUT STILL REFUSED
[2019-11-10] MEDS: INSULIN LANTUS 100 UNITS/ML 10 ML VIAL SUBQ SCH (09:36)
[2019-11-10] MEDS: CLONIDINE HYDROCHLORIDE 0.1 MG TAB PO PRN (09:40)
--- NOTE | 2019-11-10 12:00 | NUR ---
BLOOD SUGAR 112. NO COVERAGE NEEDED
[2019-11-10] MEDS: GAUZE TP SCH (12:47)
--- NOTE | 2019-11-10 14:00 | NUR ---
WITH C/O BLE PAIN 11/14. MORPHINE GIVEN ORDERED. WILL REASSESS IN 1 HOUR
[2019-11-10] MEDS: VANCOMYCIN 1,500 MG in DEXTROSE 5% 500 ML IV SCH (14:25)
--- NOTE | 2019-11-10 15:40 | NUR ---
PT AWKE IN BED WATCHING TV. NO COMPLAINTS AT THIS TIME, NO S/S OF DISTRESS
[2019-11-10 16:00] VITALS: BP 155/81
--- NOTE | 2019-11-10 17:00 | NUR ---
BLOOD SUGAR 150. NO COVERAGE NEEDED
--- NOTE | 2019-11-10 18:05 | NUR ---
WITH C/O BLE PAIN 10/14. MORPHINE GIVEN ORDERED. WILL REASSESS IN 1 HOUR
--- NOTE | 2019-11-10 18:50 | NUR ---
PT IN BED. NO C/O PAIN RESPIRATIONS ARE EVEN AND UNLABORED. WILL ENDORSE TO NEXT SHIFT FOR CONTINUITY OF CARE
--- NOTE | 2019-11-10 19:13 | NUR ---
RECEIVED CONTINUITY OF CARE FROM AM NURSE. PATIENT IS IN STABLE CONDITION, RESPIRATIONS EQUAL AND UNLABORED, A/OX4, WOUNDS ON BILATERAL EXTREMITY NOTED. CALL LIGHT WITHIN REACH, SAFETY PRECAUTIONS IN PLACE. DISCUSSED POC WITH PATIENT, ALL STAFF TO OBSERVE ISOLATION PRECAUTION.
--- NOTE | 2019-11-10 21:26 | NUR ---
ADMINISTERED IV MEDICATION. PATIENT REFUSED HEPARIN SUBQ AND PO SCHEDULED PO MED DESPITE HAVING GIVEN HIM EDUCATION.
[2019-11-10] MEDS: MORPHINE SULFATE 4 MG/ML SYR IVP PRN (22:51)
--- NOTE | 2019-11-10 23:00 | NUR ---
PATIENT SLEEPING IN BED. NO SIGNS OF DISTRESS NOTED. WILL CONTINUE TO MONITOR.
[2019-11-11] VITALS: BP 134/80
[2019-11-11] MEDS: MILD SOAP AND WATER TP SCH ×2 (01:00→13:59)
[2019-11-11] MEDS: NACL 0.9% IRR 250 ML BOTTLE IR SCH ×2 (01:00→13:59)
--- NOTE | 2019-11-11 01:15 | NUR ---
PATIENT SLEEPING IN BED. NO SIGNS OF DISTRESS NOTED. WILL CONTINUE TO MONITOR.
--- NOTE | 2019-11-11 03:25 | NUR ---
PATIENT SLEEPING IN BED. NO SIGNS OF DISTRESS NOTED. WILL CONTINUE TO MONITOR.
[2019-11-11] MEDS: MORPHINE SULFATE 4 MG/ML SYR IVP PRN ×4 (05:06→20:21)
[2019-11-11] MEDS: metroNIDAZOLE 500 MG/NS PREMIX 100 ML IV SCH ×3 (05:08→20:21)
--- NOTE | 2019-11-11 05:18 | NUR ---
ADMINISTERED SCHEDULED MEDS. PATIENT TOLERATED WELL.
[2019-11-11] MEDS: CITRIC ACID/SODIUM CITRATE 30 ML UDC PO SCH ×3 (05:43→20:20)
--- NOTE | 2019-11-11 06:15 | NUR ---
PATIENT REFUSED DRESSING CHANGE UNTIL AFTER HE GETS COFFEE. COFFEE WILL ARRIVE ON BREAKFAST TRAY.
[2019-11-11] MEDS: BLOOD GLUCOSE MONITORING 1 DEV DEV FS SCH ×4 (06:23→20:20)
[2019-11-11] MEDS: HYDRAGUARD CREAM TP SCH ×3 (07:00→19:14)
--- NOTE | 2019-11-11 07:10 | NUR ---
RECEIVED BEDSIDE REPORT FROM NIGHTSDEFT NURSE. PT RESTING IN BED. ABLE TO MAKE NEEDS KNOWN. RESPIRATIONS EVEN AND UNLABORED WITH NO SOB OR RESPIRATORY DISTRESS. SKIN WARM AND DRY TO TOUCH. PICC LINE IN UPPER RIGHT ARM DOUBLE LUMEN. SAFETY MEASURES IN PLACE. WILL CONTINUE TO MONITOR Addendum: 11/11/19 at 1047 by Renetta Carrera RN TIME ERROR. TIME OF REPORT WAS 0730
--- NOTE | 2019-11-11 07:25 | NUR ---
ENDORSED CARE TO AM NURSE. PATIENT IS IN STABLE CONDITION.
[2019-11-11] MEDS: AMYLASE/LIPASE/PROTEASE 1 CAPDR PO SCH ×3 (07:30→16:30)
[2019-11-11 08:00] VITALS: BP 145/95
[2019-11-11] MEDS: INSULIN LANTUS 100 UNITS/ML 10 ML VIAL SUBQ SCH (09:00)
--- NOTE | 2019-11-11 09:45 | NUR ---
PT REFUSED MORNING MEDICATIONS. EDUCATED PATIENT ON PURPOSE. PT VERBALIZED UNDERSTANDING AND STILL DID NOT WANT MEDICATIONS. MD AWARE. SAFETY MEASURES IN PLACE. WILL CONTINUE TO MONITOR
--- NOTE | 2019-11-11 10:10 | NUR ---
PT CALLED AND SAID HES IN SEVERE PAIN. PRN MORPHINE ADMINISTERED PRESCRIBED PER MD ORDER. PT TOLERATED WILL. MEDICATION EDUCATION PERFORMED. PT VERBALIZED UNDERSTANDING. SAFETY MEASURES IN PLACE. WILL CONTINUE TO MONITOR
--- NOTE | 2019-11-11 11:30 | NUR ---
PT BLOOD SUGAR IS 128. NO INSULIN NEEDED AT THIS TIME. SAFETY MEASURES IN PLACE. WILL CONTINUE TO MONITOR
--- NOTE | 2019-11-11 13:24 | NUR ---
ADMINISTERED SCHED MED PRESCRIBED PER MD ORDER. PT TOLERATED WELL. MEDICATION EDUCATION PERFORMED. PT VERBALIZED UNDERSTANDING. SAFETY MEASURES IN PLACE. WILL CONTINUE TO MONITOR.
[2019-11-11] MEDS: GAUZE TP SCH (13:59)
[2019-11-11] MEDS: VANCOMYCIN 1,500 MG in DEXTROSE 5% 500 ML IV SCH (14:00)
--- NOTE | 2019-11-11 15:15 | NUR ---
11/11/19 RD FOLLOW UP COMPLETED PLEASE REFER TO NUTRITION ASSESSMENT UNDER CARE ACTIVITY FOR ESTIMATED NUTRITIONAL NEEDS. 1. CONSIDER CCHO 60GM AND RENAL PROTEIN 80 GM DIET 2. CONTINUE FLUID RESTRICTION OF 1300 ML/DAY 3. RECOMMEND REJI BID 4. ENCOURAGE PO INTAKE AND FOLLOW FOOD PREFERENCE 5. RD TO FOLLOW-UP 3-5 DAYS, MODERATE RISK YOLIE RECINOS, RD
--- NOTE | 2019-11-11 15:30 | NUR ---
CALLED PHARMACIST TO ENSURE THAT VANC CAN BE GIVEN AFTER THE DRAW AND RESULT OF 14.6. TADEO VERBALIZED THAT I CAN GIVE VANC. SAFETY MEASURES IN PLACE. WILL CONTINUE TO MONITOR
[2019-11-11 16:00] VITALS: BP 145/75
--- NOTE | 2019-11-11 16:30 | NUR ---
PT BLOOD SUGAR IS 128. NO INSULIN NEEDED AT THIS TIME. SAFETY MEASURES IN PLACE. WILL CONTINUE TO MONITOR
--- NOTE | 2019-11-11 17:45 | NUR ---
PT RESTING IN BED. ABLE TO MAKE NEEDS KNOWN. RESPIRATIONS EVEN AND UNLABORED WITH NO SOB OR RESPIRATORY DISTRESS. SKIN WARM AND DRY TO TOUCH. SAFETY MEASURES IN PLACE. WILL CONTINUE TO MONITOR
--- NOTE | 2019-11-11 18:15 | NUR ---
PT REFUSED LABS. IS AWARE. SAFETY MEASURES IN PLACE. WILL CONTINUE TO MONITOR
--- NOTE | 2019-11-11 19:20 | NUR ---
ENDORSED TO NIGHTSHIFT FOR CONTINUITY OF CARE. PT IS STABLE.
--- NOTE | 2019-11-11 19:21 | NUR ---
RECEIVED BEDSIDE REPORT FROM DAY SHIFT NURSE. PT IS SITTING IN BED WITH HOB ELEVATED. PT IS AAOX4 AND ABLE TO MAKE NEEDS KNOWN. PT IS IRRITABLE AND REFUSES CARE AT TIMES. RESPIRATIONS ARE EVEN AND UNLABORED TO ROOM AIR. SKIN IS WARM AND DRY. PT WITH BILATERAL LEG WOUND AND EDEMA. ABDOMEN IS SOFT AND NON-PAINTER HELPER SPRAY. PT HAS RIGHT UPPER ARM PICC LINE, PATENT AND INTACT. PT DENIES ANY PAIN OR DISCOMFORT AT THIS TIME. NO REQUESTS MADE. PLAN OF CARE DISCUSSED. REINFORCEMENT NEEDED. SAFETY MEASURES IN PLACE. CALL LIGHT WITHIN REACH. WILL CONTINUE TO MONITOR.
[2019-11-11] MEDS: NAFCILLIN 2,000 MG in DEXTROSE 5% 100 ML IV SCH ×2 (20:20→23:41)
--- NOTE | 2019-11-11 20:21 | NUR ---
PT VERBALIZED 8/10 FOOT PAIN. PRN PAIN MEDICATION GIVEN ORDERED. SCHEDULED MEDS GIVEN WELL. PT REFUSED HEPARIN AND BICITRA DESPITE TEACHINGS. WILL CONTINUE TO MONITOR.
--- NOTE | 2019-11-11 22:22 | NUR ---
PT IN BED USING HIS PHONE WITH HOB ELEVATED. PT DENIES ANY PAIN OR DISCOMFORT AT THIS TIME. NO S/SX OF DISTRESS NOTED. NO REQUESTS MADE. SAFETY MEASURES IN PLACE. CALL LIGHT WITHIN REACH. WILL CONTINUE TO MONITOR.
[2019-11-12] VITALS: BP 156/83
[2019-11-12] MEDS: NACL 0.9% IRR 250 ML BOTTLE IR SCH ×2 (00:41→13:46)
[2019-11-12] MEDS: MILD SOAP AND WATER TP SCH ×2 (00:41→13:48)
[2019-11-12] MEDS: MORPHINE SULFATE 4 MG/ML SYR IVP PRN ×2 (00:41→05:29)
--- NOTE | 2019-11-12 00:41 | NUR ---
VITAL SIGNS STABLE. PT IN BED RESTING. PT VERBALIZED PAIN 8/10, PRN PAIN MEDICATION GIVEN. WOUND CARE DONE ON LEFT FOOT. PT TOLERATING WELL. SAFETY MEASURES IN PLACE. WILL CONTINUE TO MONITOR.
--- NOTE | 2019-11-12 02:12 | NUR ---
PT SLEEPING IN BED WITH HOB ELEVATED. NO S/SX OF DISTRESS NOTED. NO REQUESTS MADE. WILL CONTINUE TO MONITOR.
[2019-11-12] MEDS: CITRIC ACID/SODIUM CITRATE 30 ML UDC PO SCH ×3 (04:16→21:00)
[2019-11-12] MEDS: NAFCILLIN 2,000 MG in DEXTROSE 5% 100 ML IV SCH ×5 (04:16→21:08)
--- NOTE | 2019-11-12 04:20 | NUR ---
PT ASLEEP WITH HOB ELEVATED. O2 IN PLACE. RESPIRATIONS EVEN AND UNLABORED. NO REQUESTS MADE. SAFETY MEASURES IN PLACE. WILL CONTINUE TO MONITOR.
--- NOTE | 2019-11-12 05:29 | NUR ---
PT VERBALIZED PAIN 8/10. PRN PAIN MEDICATION GIVEN ORDERED. WILL CONTINUE TO MONITOR.
[2019-11-12] MEDS: HYDRAGUARD CREAM TP SCH ×3 (06:40→21:33)
[2019-11-12] MEDS: BLOOD GLUCOSE MONITORING 1 DEV DEV FS SCH ×4 (06:40→21:09)
[2019-11-12] MEDS: AMYLASE/LIPASE/PROTEASE 1 CAPDR PO SCH ×3 (06:40→16:30)
--- NOTE | 2019-11-12 07:05 | NUR ---
ENDORSED TO DAY SHIFT NURSE FOR CONTINUITY OF CARE. PT IS IN STABLE CONDITION.
--- NOTE | 2019-11-12 07:06 | NUR ---
RECEIVED REPORT FROM COMPUTER GAME TESTER NURSE FOR CONTINUITY OF CARE. PATIENT IS AAOX4. RESTING IN BED. NO ACUTE DISTRESS NOTED. RESPIRATIONS ARE EVEN AND UNLABORED TO ROOM AIR. SKIN IS WARM AND DRY. ABDOMEN IS SOFT AND NON-SENIOR MECHANICAL PROJECT ENGINEER. PT HAS RIGHT UPPER ARM PICC LINE, PATENT AND INTACT. PLAN OF CARE DISCUSSED. REINFORCEMENT NEEDED. SAFETY MEASURES IN PLACE. CALL LIGHT WITHIN REACH. WILL CONTINUE TO MONITOR.
[2019-11-12 07:29] LABS: BASOPHILS # (AUTO) 0.1 K/uL (0.00-0.22); BASOPHILS % (AUTO) 0.5 % (0.0-2.0); EOSINOPHILS # (AUTO) 0.1 K/uL (0-0.4); EOSINOPHILS % (AUTO) 0.5 % (0.0-4.0); HEMATOCRIT 23.2 % (36-52); HEMOGLOBIN 7.5 g/dL (12.0-18.0); LYMPHOCYTES # (AUTO) 0.9 K/uL (2.0-11.5); LYMPHOCYTES % (AUTO) 8.2 % (20.5-51.1); MEAN CORPUSCULAR HEMOGLOBIN 27 pg (27-31); MEAN CORPUSCULAR HGB CONC 32 g/dL (33-37); MEAN CORPUSCULAR VOLUME 83.9 fL (80-94); MONOCYTES % (AUTO) 18.2 % (1.7-9.3); NEUTROPHILS # (AUTO) 7.8 K/uL (1.8-7.7); NEUTROPHILS % (AUTO) 72.6 % (42.2-75.2); PLATELET COUNT (AUTO) 447 K/uL (140-450); RED BLOOD CELL COUNT(AUTO) 2.77 MIL/uL (4.20-6.10); RED CELL DISTRIBUTION WIDTH 16.9 % (11.6-13.7); WHITE BLOOD COUNT (AUTO) 10.8 K/uL (4.8-10.8)
[2019-11-12 07:52] LABS: ANION GAP 13.1 (8-16); CARBON DIOXIDE 21.6 mmol/L (21-32); CREATININE 3.5 mg/dL (0.6-1.3); POTASSIUM 3.7 mmol/L (3.5-5.1)
[2019-11-12 08:00] VITALS: BP 159/95
[2019-11-12] MEDS: INSULIN LANTUS 100 UNITS/ML 10 ML VIAL SUBQ SCH (09:00)
--- NOTE | 2019-11-12 09:55 | NUR ---
SCHEDULED MORNING MED GIVEN, EDUCATION PROVIDED. NO ADVERSE REACTION NOTED. PATIENT REFUSED HEPARIN AND LANTUS. ;PATIENT RESTING IN BED, WATCHING TV. SAFETY MEASURES IN PLACE. WILL CONTINUE TO MONITOR.
--- NOTE | 2019-11-12 11:30 | NUR ---
PATIENT REFUSED MED BICITRA, MEDS INDICATION PROVIDED, PT INSIST REFUSE.
[2019-11-12] MEDS: MORPHINE SULFATE 2 MG/ML SYR IVP PRN ×2 (13:20→20:31)
[2019-11-12] MEDS: GAUZE TP SCH (13:46)
[2019-11-12] MEDS: CLONIDINE HYDROCHLORIDE 0.1 MG TAB PO PRN (14:52)
--- NOTE | 2019-11-12 14:53 | NUR ---
PATIENT CAME BACK FROM ABDOMINAL AND PELVIC CT SCAN. SN RECONNECTED THE IV. PATIENT'S BP LEVEL 171/91. SN ADMINISTER CLONIDINE 0.1MG. EDUCATION PROVIDED. WILL CONTINUE TO MONITOR.
[2019-11-12 16:00] VITALS: BP 138/80
--- NOTE | 2019-11-12 17:00 | NUR ---
PATIENT IS SLEEPING IN BED, AROUSABLE. NO ACUTE DISTRESS NOTED. WILL CONTINUE TO MONITOR.
--- NOTE | 2019-11-12 19:15 | NUR ---
ENDORSED PATIENT TO COMMERCIAL SALES DIRECTOR NURSE FOR CONTINUITY OF CARE.
--- NOTE | 2019-11-12 19:16 | NUR ---
RECEIVED REPORT FROM AM SHIFT NURSE FOR CONTINUITY OF CARE. PATIENT IS AAOX4. RESTING IN BED. NO ACUTE DISTRESS NOTED. RESPIRATIONS ARE EVEN AND UNLABORED TO ROOM AIR. SKIN IS WARM AND DRY. ABDOMEN IS SOFT AND NON-TENDER. PT HAS RIGHT UPPER ARM PICC LINE, PATENT AND INTACT. PLAN OF CARE DISCUSSED. REINFORCEMENT NEEDED. SAFETY MEASURES IN PLACE. CALL LIGHT WITHIN REACH. WILL CONTINUE TO MONITOR.
--- NOTE | 2019-11-12 21:14 | NUR ---
PT REFUSED HEPARIN SUBQ, PLT IS 447, ALSO PT REFUSED BICITRA- WILL INFORM
[2019-11-13] VITALS: BP 171/94
--- NOTE | 2019-11-13 01:00 | NUR ---
INFORMED PT THAT HE IS DUE TO WOUND CARE NOW, PT REFUSED AND WANTS TO DO IT IN THE AM.EXPLAINED THE RISKS AND BENEFITS, PT VERBALIZED UNDERSTANDING Addendum: 11/13/19 at 0821 by Socorro Giles RN JESUS NOTE
--- NOTE | 2019-11-13 01:10 | NUR ---
2ND SWAB TAKEN FOR COVID, PT TOLERATED IT WELL, COMPLIANT W/ THIS PROCEDURE
[2019-11-13] MEDS: NACL 0.9% IRR 250 ML BOTTLE IR SCH ×2 (01:14→14:10)
[2019-11-13] MEDS: NAFCILLIN 2,000 MG in DEXTROSE 5% 100 ML IV SCH ×6 (01:14→20:23)
[2019-11-13] MEDS: MILD SOAP AND WATER TP SCH ×2 (01:15→14:20)
[2019-11-13] MEDS: MORPHINE SULFATE 2 MG/ML SYR IVP PRN ×6 (01:20→22:40)
--- NOTE | 2019-11-13 01:20 | NUR ---
PT SAID THAT ABD PAIN 11/14, MORPHINE GIVEN RE-ASSESSMENT WILL BE DONE LATER
--- NOTE | 2019-11-13 03:00 | NUR ---
PT WENT TO BATHROOM WITH STANDBY ASSIST, PAT TOLOERATED AMBULATION, BUT KEPT AN EYE FOR FALL RISK DUE TO WOUND ON BILATERAL EXTREMITIES.
[2019-11-13] MEDS: CITRIC ACID/SODIUM CITRATE 30 ML UDC PO SCH ×3 (05:00→20:24)
[2019-11-13] MEDS: HYDRAGUARD CREAM TP SCH ×3 (07:00→19:04)
[2019-11-13] MEDS: AMYLASE/LIPASE/PROTEASE 1 CAPDR PO SCH ×3 (07:30→16:56)
[2019-11-13] MEDS: BLOOD GLUCOSE MONITORING 1 DEV DEV FS SCH ×4 (07:34→20:24)
--- NOTE | 2019-11-13 07:34 | NUR ---
PT REFUSED ON THE PANCREASE AND THE HYDRAGUARD CREAM, EXPLAINED TO HIM THE BENEFITS AND RISKS, PT VERBALIZED UNDERSTANDING
--- NOTE | 2019-11-13 07:35 | NUR ---
PT NON-COMPLIANT, ENDORSED TO NEXT SHIFT NURSE FOR CONTINUITY OF CARE. ALSO ENDORSED THE WISHES OF IVAN, PT'S PRIMARY CONTACT- NOT TO PUT PT ON MARQUES FOR LTAC
--- NOTE | 2019-11-13 07:36 | NUR ---
RECEIVED REPORT FROM PM SHIFT NURSE FOR CONTINUITY OF CARE. PATIENT IS AAOX4. RESTING IN BED. NO ACUTE DISTRESS NOTED. RESPIRATIONS ARE EVEN AND UNLABORED TO ROOM AIR. SKIN IS WARM AND DRY. ABDOMEN IS SOFT AND NON-TENDER. PT HAS RIGHT UPPER ARM PICC LINE, PATENT AND INTACT. PLAN OF CARE DISCUSSED. REINFORCEMENT NEEDED. DROPLET AND SAFETY MEASURES IN PLACE. CALL LIGHT WITHIN REACH. WILL CONTINUE TO MONITOR.
[2019-11-13 08:30] VITALS: BP 177/104
[2019-11-13] MEDS: INSULIN LANTUS 100 UNITS/ML 10 ML VIAL SUBQ SCH (09:00)
[2019-11-13] MEDS: CLONIDINE HYDROCHLORIDE 0.1 MG TAB PO PRN (09:29)
[2019-11-13] MEDS: FUROSEMIDE 40 MG TAB PO SCH (09:30)
--- NOTE | 2019-11-13 09:30 | NUR ---
ORDERED MEDICATIONS GIVEN. CATAPRESS PRN GIVEN FOR ELEVATED BP, WILL REASSESS PATIENT. PATIENT REFUSED HEPARIN AND LANTUS STATING HE DOESN'T "NEED IT", EDUCATED HIM ON INDICATIONS, HE REFUSED. PATIENT SPEAKING TO FAMILY ON PHONE, ANGRY THAT DOCTORS HAVE NOT COME IN TO SPEAK TO HIM. INDICATED THE TIME FRAME THAT DR UMAÑA WILL COME IN TO SPEAK TO HIM TODAY. HE VERBALIZED UNDERSTANDING. CALL LIGHT WITHIN REACH, WILL CONTINUE TO MONITOR PATIENT.
--- NOTE | 2019-11-13 10:54 | NUR ---
DR UMAÑA ON THE FLOOR. INFORM HIM OF PATIENT'S WISH TO SPEAK TO HIM ABOUT PLAN OF CARE WELL FAMILY'S WISH TO SPEAK TO HIM. WILL CONTINUE TO MONITOR PATIENT.
--- NOTE | 2019-11-13 12:25 | NUR ---
Ordered medications given. Patient tolerated them. Blood sugar 133, no coverage needed. Patient refused Bicitra. Educated patient about indications, he verbalized understanding but still refused. Safety and droplet precautions in place, call light within reach, will continue to monitor patient.
[2019-11-13] MEDS: GAUZE TP SCH (14:20)
--- NOTE | 2019-11-13 14:36 | NUR ---
PRN MORPHINE GIVEN PRIOR TO DRESSING CHANGE. DRESSING CHANGE OF LEFT FOOT ULCER DONE PER WOUND CARE ORDERS. PATIENT REFUSED DRESSING CHANGE ON THE RIGHT FOOT BECAUSE DRESSING DRY AND INTACT, NO DRAINAGE SEEN AT THE TIME. PATIENT TOLERATED DRESSING CHANGE WELL. HOWEVER, STATED THAT HE WOULD PREFER TO HAVE DRESSING CHANGE THEN GIVEN PAIN MEDICATION. WILL ENDORSE THIS REQUEST TO RIDDLER OPERATOR NURSE.
[2019-11-13 16:45] VITALS: BP 156/98
--- NOTE | 2019-11-13 18:30 | NUR ---
PRN PAIN MEDICATION GIVEN. PATIENT TOLERATED IT. NO COMPLAINTS AT THIS TIME. MORPHINE DOSE NOT IN CORRECT TIME ON EMAR. WILL CONTINUE TO MONITOR PATIENT.
--- NOTE | 2019-11-13 19:25 | NUR ---
REPORT GIVEN TO CABLE MAKER NURSE. PATIENT IN STABLE CONDITION.
--- NOTE | 2019-11-13 20:27 | NUR ---
RECEIVED PATIENT AWAKE AND ALERT IN BED. PT ON ROOM AIR. NO S/S OF DISTRESS NOTED. NO C/O PAIN AT THIS TIME. RIGHT UPPER DOUBLE LUMEN PICC NOTED. PT REFUSES TO HAVE LINES FLUSHED AT THIS TIME. UNABLE TO DO FULL ASSESSMENT. PATIENT IS IRRITABLE. PATIENT STATES, " IM GOOD." DRESSINGS NOTED TO BLE. DRESSINGS CLEAN, DRY AND INTACT. BED LOWERED WITH CALL LIGHT WITHIN REACH. WILL CONTINUE TO MONITOR
--- NOTE | 2019-11-13 23:52 | NUR ---
PATIENT AWAKE IN BED, WATCHING TELEVISION. NO S/S OF DISTRESS NOTED AT THIS TIME
[2019-11-14] MEDS: NAFCILLIN 2,000 MG in DEXTROSE 5% 100 ML IV SCH ×7 (00:05→23:58)
[2019-11-14 00:06] VITALS: BP 146/81
[2019-11-14] MEDS: NACL 0.9% IRR 250 ML BOTTLE IR SCH ×2 (00:06→13:00)
[2019-11-14] MEDS: MILD SOAP AND WATER TP SCH ×2 (00:06→13:00)
--- NOTE | 2019-11-14 02:00 | NUR ---
PT ASLEEP IN BED. NO S/S OF DISTRESS NOTED
[2019-11-14] MEDS: MORPHINE SULFATE 2 MG/ML SYR IVP PRN ×4 (03:07→15:17)
[2019-11-14] MEDS: CITRIC ACID/SODIUM CITRATE 30 ML UDC PO SCH ×3 (04:58→20:44)
[2019-11-14] MEDS: BLOOD GLUCOSE MONITORING 1 DEV DEV FS SCH ×4 (06:37→20:52)
[2019-11-14] MEDS: HYDRAGUARD CREAM TP SCH ×3 (06:38→19:00)
[2019-11-14] MEDS: AMYLASE/LIPASE/PROTEASE 1 CAPDR PO SCH ×3 (06:39→16:30)
--- NOTE | 2019-11-14 07:22 | NUR ---
PT REPORT GIVEN TO AM NURSE. PT ENDORSED IN STABLE CONDITION
--- NOTE | 2019-11-14 07:24 | NUR ---
RECEIVED ENDORSEMENT FROM LAMINATION TECHNICIAN NURSE, AWAKE, ALERT, ORIENTEDX4, BREATHING SPONTANEOUSLY AT ROOM AIR, NOT IN DISTRESS NOTED
[2019-11-14 08:00] VITALS: BP 164/64
[2019-11-14 08:19] LABS: BASOPHILS % (AUTO) 0.4 % (0.0-2.0); EOSINOPHILS # (AUTO) 0.1 K/uL (0-0.4); EOSINOPHILS % (AUTO) 1.5 % (0.0-4.0); HEMOGLOBIN 7.3 g/dL (12.0-18.0); LYMPHOCYTES # (AUTO) 2.1 K/uL (2.0-11.5); LYMPHOCYTES % (AUTO) 27.8 % (20.5-51.1); MEAN CORPUSCULAR HEMOGLOBIN 26 pg (27-31); MEAN CORPUSCULAR HGB CONC 32 g/dL (33-37); MEAN CORPUSCULAR VOLUME 83.2 fL (80-94); MONOCYTES # (AUTO) 0.5 K/uL (0.8-1.0); MONOCYTES % (AUTO) 6.9 % (1.7-9.3); NEUTROPHILS # (AUTO) 4.7 K/uL (1.8-7.7); NEUTROPHILS % (AUTO) 63.4 % (42.2-75.2); PLATELET COUNT (AUTO) 437 K/uL (140-450); RED BLOOD CELL COUNT(AUTO) 2.77 MIL/uL (4.20-6.10); RED CELL DISTRIBUTION WIDTH 17.4 % (11.6-13.7); WHITE BLOOD COUNT (AUTO) 7.4 K/uL (4.8-10.8)
[2019-11-14 08:28] LABS: ALBUMIN 1.5 g/dL (3.4-5.0); ANION GAP 13.7 (8-16); CARBON DIOXIDE 20.7 mmol/L (21-32); CREATININE 3.6 mg/dL (0.6-1.3); POTASSIUM 3.4 mmol/L (3.5-5.1)
[2019-11-14] MEDS: FUROSEMIDE 40 MG TAB PO SCH (08:48)
[2019-11-14] MEDS: INSULIN LANTUS 100 UNITS/ML 10 ML VIAL SUBQ SCH (09:00)
--- NOTE | 2019-11-14 09:02 | NUR ---
FULLY AWAKE, DUE MEDICATION GIVEN EXCEPT LANTUS AND HEPARIN, PATIENT REFUSED SUBCUTANEOUS.
--- NOTE | 2019-11-14 11:47 | NUR ---
BLOOD SUGAR-111, NO INSULIN COVERAGE. COMPLAINED OF BILATERAL LOWER LIMB PAIN, FACIAL GRIMACED NOTED, MORPHINE 2MG IVP ORDERED PRN GIVEN. SAFETY MEASURES PROVIDED.
--- NOTE | 2019-11-14 12:05 | NUR ---
VITAL SIGNS TAKEN AND RECORDED, NOT IN DISTRESS NOTED
[2019-11-14] MEDS: GAUZE TP SCH (13:00)
--- NOTE | 2019-11-14 15:21 | NUR ---
COMPLAINED OF BILATERAL LOWER LEG PAIN, LOOKS IRRITABLE. MORPHINE 2MG Q4H ORDERED PRN GIVEN. SAFETY MEASURES PROVIDED.
[2019-11-14 16:00] VITALS: BP 128/88
--- NOTE | 2019-11-14 16:37 | NUR ---
REFUSED TO TAKE DUE MEDICATION AND DUE BLOOD SUGAR CHECK. APPARENTLY WANTED TO REST AND MINIMAL PAIN VERBALIZED.
--- NOTE | 2019-11-14 18:10 | NUR ---
APPARENTLY ASLEEP, BREATHING SPONTANEOUSLY AT ROOM AIR.
--- NOTE | 2019-11-14 19:15 | NUR ---
RECEIVED REPORT FROM AM NURSE. PATIENT IS IN STABLE CONDITION ON ROOM MARY. RESPIRATIONS EVEN AND UNLABORED. A/OX4, PATIENT IS ABLE TO MAKE NEEDS KNOWN. CALL LIGHT WITHIN REACH, SAFETY PRECAUTIONS IN PLACE. WILL CONTINUE TO MONITOR.
--- NOTE | 2019-11-14 19:16 | NUR ---
ENDORSED TO ACTIVITIES DIRECTOR FOR CONTINUITY OF CARE IN STABLE CONDITION, NOT IN DISTRESS. PATIENT REFUSED TO CHANGED DRESSING AT BILATERAL FOOT.
[2019-11-14] MEDS: MORPHINE SULFATE 4 MG/ML SYR IVP PRN ×2 (19:42→23:59)
[2019-11-14] MEDS: EPOETIN ALFA 10,000 UNITS/ML VIAL IV SCH (19:44)
--- NOTE | 2019-11-14 20:05 | NUR ---
PATIENT REPORTED SKIN SORES ON THIS BUTTOCKS AND REQUEST FOR AN OINTMENT. PATIENT REFUSED TO HAVE NURSE MAKE ASSESSMENT. NURSE EDUCATED THE PATIENT THAT NO INTERVENTIONS IS POSSIBLE WITHOUT AN ASSESSMENT. PATIENT CONTINUE TO REFUSE TO HAVE ASSESSMENT MADE.
--- NOTE | 2019-11-14 20:53 | NUR ---
ADMINISTERED SCHEDULE MEDS. PATIENT REFUSED HEPARIN SUBQ INJECTION 5000 UNITS. EDUCATION GIVEN. BLOOD GLUCOSE WAS 123, NO COVERAGE NEEDED. SAFETY PRECAUTION IN PLACE. WILL CONTINUE TO MONITOR.
--- NOTE | 2019-11-14 23:15 | NUR ---
ADMINISTERED SCHEDULED MEDS. PERFORMED WOUND CARE TO LOWER BILATERAL EXTREMITY. PATIENT TOLERATED WELL. WILL CONTINUE TO MONITOR.
[2019-11-15] MEDS: MILD SOAP AND WATER TP SCH ×3 (00:30→13:00)
[2019-11-15 01:00] VITALS: BP 161/85
--- NOTE | 2019-11-15 01:15 | NUR ---
PATIENT IS SLEEPING. NO SIGNS OF DISTRESS NOTED. WILL CONTINUE TO MONITOR.
[2019-11-15] MEDS: NACL 0.9% IRR 250 ML BOTTLE IR SCH ×2 (01:28→12:59)
--- NOTE | 2019-11-15 03:15 | NUR ---
PATIENT IS SLEEPING IN BED. NO SIGNS OF DISTRESS NOTED. WILL CONTINUE TO MONITOR.
[2019-11-15] MEDS: NAFCILLIN 2,000 MG in DEXTROSE 5% 100 ML IV SCH ×6 (03:20→23:09)
[2019-11-15] MEDS: MORPHINE SULFATE 4 MG/ML SYR IVP PRN ×5 (03:21→20:07)
[2019-11-15] MEDS: CITRIC ACID/SODIUM CITRATE 30 ML UDC PO SCH ×3 (05:00→20:06)
--- NOTE | 2019-11-15 05:12 | NUR ---
ADMINISTERED SCHEDULED MEDS. PATIENT TOLERATE WELL.
[2019-11-15] MEDS: HYDRAGUARD CREAM TP SCH ×3 (06:47→19:10)
[2019-11-15 06:52] LABS: BASOPHILS % (AUTO) 0.3 % (0.0-2.0); EOSINOPHILS # (AUTO) 0.2 K/uL (0-0.4); EOSINOPHILS % (AUTO) 2.7 % (0.0-4.0); LYMPHOCYTES % (AUTO) 17.6 % (20.5-51.1); MEAN CORPUSCULAR HEMOGLOBIN 27 pg (27-31); MEAN CORPUSCULAR HGB CONC 32 g/dL (33-37); MEAN CORPUSCULAR VOLUME 83.7 fL (80-94); MONOCYTES # (AUTO) 0.7 K/uL (0.8-1.0); MONOCYTES % (AUTO) 11.2 % (1.7-9.3); NEUTROPHILS % (AUTO) 68.2 % (42.2-75.2); PLATELET COUNT (AUTO) 397 K/uL (140-450); RED BLOOD CELL COUNT(AUTO) 2.59 MIL/uL (4.20-6.10); RED CELL DISTRIBUTION WIDTH 17.3 % (11.6-13.7); WHITE BLOOD COUNT (AUTO) 5.9 K/uL (4.8-10.8)
[2019-11-15] MEDS: AMYLASE/LIPASE/PROTEASE 1 CAPDR PO SCH ×3 (06:54→15:51)
--- NOTE | 2019-11-15 07:13 | NUR ---
GAVE REPORT TO AM NURSE. PATIENT IS IN STABLE CONDITION.
--- NOTE | 2019-11-15 07:17 | NUR ---
RECEIVED REPORT FROM NIGHT NURSE. PT IS A/OX4. PATIENT IS IN STABLE CONDITION ON ROOM AIR. RESPIRATIONS EVEN AND UNLABORED. DOUBLE LUMEN PICC IN R UPPER ARM, CLEAN, DRY, INTACT. CALL LIGHT WITHIN REACH, BED IN LOW POSITION, SAFETY PRECAUTIONS IN PLACE. WILL CONTINUE TO MONITOR.
[2019-11-15 07:44] LABS: HEMATOCRIT 22.3 % (36-52)
[2019-11-15] MEDS: BLOOD GLUCOSE MONITORING 1 DEV DEV FS SCH ×4 (07:44→20:37)
--- NOTE | 2019-11-15 07:44 | NUR ---
LAB RESULT FOR HGB IS 7.0 PER LAB
[2019-11-15 07:50] LABS: ALBUMIN 1.3 g/dL (3.4-5.0); ANION GAP 14.6 (8-16); CARBON DIOXIDE 19.8 mmol/L (21-32); CREATININE 3.5 mg/dL (0.6-1.3); POTASSIUM 3.4 mmol/L (3.5-5.1); TOTAL BILIRUBIN 0.8 mg/dL (0.0-1.0)
[2019-11-15 08:00] VITALS: BP 184/106
--- NOTE | 2019-11-15 08:04 | NUR ---
PT C/O 8/10 PAIN. GIVEN 8MG MORPHINE PRN IVP. PT BP: 184/106 HR 94 RR 18 SAO2: 100% RA. TEMP: 98.6. NO ACUTE DISTRESS NOTED WILL CONTINUE TO MONITOR.
[2019-11-15] MEDS: INSULIN LANTUS 100 UNITS/ML 10 ML VIAL SUBQ SCH (08:16)
[2019-11-15] MEDS: FUROSEMIDE 40 MG TAB PO SCH (08:34)
[2019-11-15] MEDS: HYDROCOLLOID DRESSING TP SCH (08:35)
--- NOTE | 2019-11-15 08:47 | NUR ---
ADMINISTERED MORNING MEDS. LANTUS HELD. BLOOD GLU 110. NO ACUTE DISTRESS NOTED.
[2019-11-15] MEDS ORDERED: POTASSIUM CHLORIDE 10 MEQ TABER PO SCH (08:55)
--- NOTE | 2019-11-15 09:30 | NUR ---
PT POTASSIUM 3.4. GIVEN 40MEQ K ANITA PO. NO ACUTE DISTRESS NOTED. WILL CONTINUE TO MONITOR.
--- NOTE | 2019-11-15 10:33 | NUR ---
WOUND CARE RE-EVALUATION NOTE: PT. IS NOT COOPERATE WITH TREATMENT PLAN, VERY RUDE AND NOT RESPECTFUL TO STAFF, QUESTION OF WOUND CARE AND STATE THAT PHOTOCOPY OPERATOR DID NOT EXPLAINED TO HIM ABOUT PLAN. EXPLAIN TO PT RIGHT 5TH TOE CHANGE OF CONDITION FROM DRY STABLE GANGRENE TO OOZING WITH MILD ODOR. AND WILL REQUEST PODIATRY FOR RE-EVALUATION. PT.AGREEABLE WITH PLAN. EXPLAIN TO PT. PURPOSE OF WOUND [id number] AND WITH PT. PERMISSION BILATERAL FEET WOUND CARE PROVIDED AND PT. TOLERATE PROCEDURE WELL. PLACE A CALL TO DR. SMALLS OFFICE AND REQUEST PODIATRY VISIT, PER OFFICE STAFF THAT PHILIPPE HALEY VISITED PT LAST FRIDAY AND WILL PLAN TO VISIT HIM AGAIN TOMORROW. PRIMARY RN NOTIFIED ABOVE INFORMATION. -RIGHT ANTERIOR LOWER LEG PARTIAL THICKNESS SKIN LOSS 2X5CM SUPERFICIAL DEPTH, WOUND BED 100% PINK AND MOIST NO ODOR, SUE WOUND DRY HEALED SCARS -RIGHT 5TH TOE TO PLANTAR AREA 4X3CM GANGRENE, OOZING, MILD ODOR -RIGHT 3RD TOE GANGRENE 1X0.1 SLIT OPEN WOUND , NO DRAINAGE, -LEFT ANTERIOR FOOT SURGICAL WOUND 4X5X0.1CM WOUND BED 100% GRANULATING TISSUE WITH WOUND BED MOIST NO ODOR, WOUND EDGE FLAT WITH SUE WOUND SKIN INTACT DRY AND SCALY. -LEFT PLANTAR FOOT SURGICAL WOUND 33Q21F1.5CM WOUND BED 50% GRANULATING TISSUE AND 50% SOFT YELLOW SLOUGH TISSUE,MODERATE AMOUNT PURULENT DRAINAGE MILD ODOR, WOUND EDGE FLAT WITH SUE WOUND SKIN DRY SCALY. WILL CONTINUE TO FOLLOW PHOTOCOPY OPERATOR ORDER,BETADINE FOR WOUND CARE
--- NOTE | 2019-11-15 10:35 | NUR ---
TOLU, WOUND CARE NURSE, AT BEDSIDE FOR WOUND CARE EVALUATION AND WOUND CARE, DRESSING CHANGES
[2019-11-15] MEDS ORDERED: DOCUSATE SODIUM 100 MG GELCAP PO PRN (10:50)
--- NOTE | 2019-11-15 11:33 | NUR ---
PER LAB PATIENT REFUSED BLOOD DRAW FOR TYPE AND CROSS MATCH. SPOKE TO THE PATIENT THE IMPORTANCE OF THE BLOOD DRAW. PATIENT STARTED CUSSING AND STATING [facility] IS [facility]. HE THEN GAVE PERMISSION FOR THE BLOOD DRAWN. CALLED LAB, SINAN STATED SHE WILL COME AND DRAW THE BLOOD.
--- NOTE | 2019-11-15 11:41 | NUR ---
BLOOD SUGAR CHECKED: 113. NO INSULIN COVERAGE NEEDED.
--- NOTE | 2019-11-15 12:06 | NUR ---
LAB AT BEDSIDE. PATIENT STATED TO USE PICC LINE. WILL DRAW FROM PICC LINE
--- NOTE | 2019-11-15 12:15 | NUR ---
BLOOD WAS DRAWN FROM PICC LINE.
[2019-11-15] MEDS: GAUZE TP SCH (12:59)
--- NOTE | 2019-11-15 13:05 | NUR ---
GIVEN CITRIC ACID. NO ACUTE DISTRESS NOTED. WILL CONTINUE TO MONITOR.
--- NOTE | 2019-11-15 15:20 | NUR ---
HUNG UNIPYARELIS 2000MG IVPB @ 200ML/HR. PT SITTING IN BED WATCHING TV. NO ACUTE DISTRESS NOTED. WILL CONTINUE TO MONITOR.
--- NOTE | 2019-11-15 16:10 | NUR ---
BLOOD TRANSFUSION STARTED. BP 166/100, HR 99, RR 18, SAO2 99% ROOM AIR. TEMP: 98.6. PT BLOOD GLU: 125. NO COVERAGE NEEDED. GIVEN 8MG MORPHINE FOR 8/10 PAIN. NO ACUTE DISTRESS NOTED. WILL CONTINUE TO MONITOR.
[2019-11-15 16:16] VITALS: BP 166/100
--- NOTE | 2019-11-15 16:25 | NUR ---
NO S/S OF BLOOD TRANSFUSION REACTIONS. WILL CONTINUE TO MONITOR. BLOOD IS NOW RUNNING AT 80 ML/HR. WILL CLOSELY MONITOR PATIENT
[2019-11-15] MEDS: CLONIDINE HYDROCHLORIDE 0.1 MG TAB PO PRN (16:27)
[2019-11-15] MEDS: FERROUS SULFATE 325 MG TABEC PO SCH (16:27)
--- NOTE | 2019-11-15 16:33 | NUR ---
CLONIDINE PRN GIVEN FOR BP 166/100. NO ACUTE DISTRESS NOTED. WILL CONT. TO MONITOR.
--- NOTE | 2019-11-15 16:45 | NUR ---
PT BP 154/95, HR 92, RR 18, SAO2 97% RA, TEMP 97.8. NO ACUTE DISTRESS NOTED. WILL CONTINUE TO MONITOR.
--- NOTE | 2019-11-15 18:13 | NUR ---
PAGED DR. BRICE TO REPORT HIGH BP. WILL WAIT FOR CALL BACK.
--- NOTE | 2019-11-15 18:33 | NUR ---
RECEIVED TELEPHONE ORDER FROM DR. BRICE FOR ADALAT 30 MG DAILY. NOTED AND WILL CARRY OUT ORDER.
--- NOTE | 2019-11-15 19:08 | NUR ---
ENDORSED PT TO NIGHT RN FOR CONTINUITY OF CARE. PT IN STABLE CONDITION. NO ACUTE DISTRESS NOTED.
--- NOTE | 2019-11-15 19:09 | NUR ---
RECEIVED REPORT FROM DAY SHIFT NURSE. PT IN BED RESTING WITH HOB ELEVATED. PT IRRITABLE AND RESTLESS BUT COOPERATIVE TO CARE. PT WITH ONGOING BLOOD TRANSFUSION, ALMOST FINISHED. RESPIRATIONS EVEN AND UNLABORED TO ROOM AIR. SKIN IS WARM AND DRY. PT HAS BILATERAL FOOT ULCERS. ABDOMEN IS SOFT AND NON-TENDER. PT HAS R UPPER ARM PICC LINE, PATENT AND INTACT. PT DENIES ANY PAIN OR DISCOMFORT AT THIS TIME. NO REQUESTS MADE. POC DISCUSSED, REINFORCEMENT NEEDED. SAFETY MEASURES IN PLACE. CALL LIGHT WITHIN REACH. WILL CONTINUE TO MONITOR.
--- NOTE | 2019-11-15 20:37 | NUR ---
VITAL SIGNS TAKEN, BP 198/118. MD CALLED, AWAITING ORDER. PT ASYMPTOMATIC. SCHEDULED MEDS GIVEN ORDERED. PT VERBALIZED FOOT PAIN 12/15. PRN PAIN MEDICATION GIVEN ORDERED. SAFETY MEASURES IN PLACE. CALL LIGHT WITHIN REACH. WILL CONTINUE TO MONITOR.
[2019-11-15] MEDS ORDERED: NIFEdipine 30 MG TABER PO SCH (20:55)
--- NOTE | 2019-11-15 21:05 | NUR ---
RETURNED CALL AND ORDERED NIFEDIPINE. NIFEDIPINE GIVEN ORDERED. WILL CONTINUE TO MONITOR.
[2019-11-16] VITALS: BP 168/99
--- NOTE | 2019-11-16 00:16 | NUR ---
VITAL SIGNS TAKEN. BP IMPROVING 160/96, HR 85. PT COMPLAINS OF FOOT PAIN. PRN PAIN MEDICATIONS GIVEN PRN. PT KEPT COMFORTABLE. SCHEDULED MED GIVEN. SAFETY MEASURES IN PLACE. WILL CONTINUE TO MONITOR Addendum: 11/16/19 at 7245 by Frandy Mcleod RN WRONG TIME. SHOULD BE [phone]
[2019-11-16] MEDS: MILD SOAP AND WATER TP SCH ×2 (00:30→01:00)
[2019-11-16] MEDS: NACL 0.9% IRR 250 ML BOTTLE IR SCH ×2 (00:30→01:00)
[2019-11-16] MEDS: MORPHINE SULFATE 4 MG/ML SYR IVP PRN ×5 (00:32→16:38)
[2019-11-16] MEDS: CLONIDINE HYDROCHLORIDE 0.1 MG TAB PO PRN ×3 (00:47→16:10)
--- NOTE | 2019-11-16 00:47 | NUR ---
PT COMPLAINS OF FOOT PAIN. PRN PAIN MEDICATION GIVEN. BP 168/99, HR 95. PT ASYMPTOMATIC. PRN BP MEDICATION GIVEN WELL. WILL CONTINUE TO MONITOR.
--- NOTE | 2019-11-16 02:22 | NUR ---
PT IRRITABLE AND REFUSES BP CHECK AND WOUND CARE. WILL TRY AGAIN LATER.
--- NOTE | 2019-11-16 04:16 | NUR ---
VITAL SIGNS TAKEN. BP IMPROVING 160/96, HR 85. PT COMPLAINS OF FOOT PAIN. PRN PAIN MEDICATIONS GIVEN PRN. PT KEPT COMFORTABLE. SCHEDULED MED GIVEN. SAFETY MEASURES IN PLACE. WILL CONTINUE TO MONITOR
[2019-11-16] MEDS: NAFCILLIN 2,000 MG in DEXTROSE 5% 100 ML IV SCH (04:33)
[2019-11-16] MEDS: CITRIC ACID/SODIUM CITRATE 30 ML UDC PO SCH ×2 (04:34→12:23)
[2019-11-16 06:24] LABS: BASOPHILS % (AUTO) 0.7 % (0.0-2.0); EOSINOPHILS # (AUTO) 0.1 K/uL (0-0.4); EOSINOPHILS % (AUTO) 1.3 % (0.0-4.0); HEMATOCRIT 24.1 % (36-52); HEMOGLOBIN 7.8 g/dL (12.0-18.0); LYMPHOCYTES # (AUTO) 1.2 K/uL (2.0-11.5); LYMPHOCYTES % (AUTO) 17.1 % (20.5-51.1); MEAN CORPUSCULAR HEMOGLOBIN 27 pg (27-31); MEAN CORPUSCULAR HGB CONC 32 g/dL (33-37); MEAN CORPUSCULAR VOLUME 83.4 fL (80-94); MONOCYTES # (AUTO) 0.7 K/uL (0.8-1.0); MONOCYTES % (AUTO) 10.3 % (1.7-9.3); NEUTROPHILS # (AUTO) 4.8 K/uL (1.8-7.7); NEUTROPHILS % (AUTO) 70.6 % (42.2-75.2); PLATELET COUNT (AUTO) 382 K/uL (140-450); RED BLOOD CELL COUNT(AUTO) 2.89 MIL/uL (4.20-6.10); RED CELL DISTRIBUTION WIDTH 18.1 % (11.6-13.7); WHITE BLOOD COUNT (AUTO) 6.8 K/uL (4.8-10.8)
[2019-11-16 06:38] LABS: ALBUMIN 1.4 g/dL (3.4-5.0); ANION GAP 12.1 (8-16); CARBON DIOXIDE 23.3 mmol/L (21-32); CREATININE 3.5 mg/dL (0.6-1.3); POTASSIUM 3.4 mmol/L (3.5-5.1); TOTAL BILIRUBIN 1.3 mg/dL (0.0-1.0)
[2019-11-16] MEDS: HYDRAGUARD CREAM TP SCH ×3 (06:40→14:30)
[2019-11-16] MEDS: BLOOD GLUCOSE MONITORING 1 DEV DEV FS SCH ×3 (06:40→16:26)
[2019-11-16] MEDS: AMYLASE/LIPASE/PROTEASE 1 CAPDR PO SCH ×3 (06:40→16:11)
--- NOTE | 2019-11-16 06:47 | NUR ---
BLOOD SUGAR 119. NO INSULIN COVERAGE NEEDED. WILL CONTINUE TO MONITOR.
--- NOTE | 2019-11-16 07:20 | NUR ---
GAVE BEDSIDE SHIFT REPORT TO DAY SHIFT NURSE. PATIENT IS IN STABLE CONDITION.
--- NOTE | 2019-11-16 07:20 | NUR ---
RECEIVED REPORT FROM SOCIAL MEDIA MARKETING ANALYST NURSE FOR CONTINUITY OF CARE. PATIENT ASLEEP AND IN BED. RESPIRATIONS EVEN AND UNLABORED TO ROOM AIR WITH SAO2 AT 96%. SKIN IS WARM AND DRY. BILATERAL FOOT ULCERS NOTED. ABDOMEN IS SOFT AND NON-TENDER. PT HAS R UPPER ARM PICC LINE, PATENT AND INTACT RUNNING IVF TKO. DENIES ANY PAIN OR DISCOMFORT AT THIS TIME. NO REQUESTS MADE. POC DISCUSSED, REINFORCEMENT NEEDED. SAFETY MEASURES IN PLACE. DROPLET ISOLATION OBSERVED BY ALL STAFF. CALL LIGHT WITHIN REACH. WILL CONTINUE TO MONITOR.
[2019-11-16 08:00] VITALS: BP 178/113
[2019-11-16] MEDS: EPOETIN ALFA 10,000 UNITS/ML VIAL IV SCH (08:12)
[2019-11-16] MEDS: FERROUS SULFATE 325 MG TABEC PO SCH ×2 (08:12→16:10)
[2019-11-16] MEDS: FUROSEMIDE 40 MG TAB PO SCH (08:12)
--- NOTE | 2019-11-16 08:12 | NUR ---
MORNING MEDICATIONS GIVEN. NO SIGNS OF DISTRESS NOTED. PATIENT MEDICATED FOR BLE PAIN OF 10/10, BP 178/113, HR 94. WILL CONTINUE TO MONITOR.
[2019-11-16] MEDS: INSULIN LANTUS 100 UNITS/ML 10 ML VIAL SUBQ SCH (08:28)
[2019-11-16] MEDS ORDERED: ASCORBIC ACID 500 MG TAB PO SCH (09:00)
[2019-11-16] MEDS ORDERED: NIFEdipine 30 MG TABER PO SCH (09:00)
[2019-11-16] MEDS ORDERED: POTASSIUM CHLORIDE 10 MEQ TABER PO SCH (09:30)
[2019-11-16] MEDS ORDERED: MAG SULF 2000 MG/WATER PREMIX 50 ML IV SCH (09:30)
[2019-11-16] MEDS ORDERED: FER325 PO (12:07)
[2019-11-16] MEDS ORDERED: VITC500 PO (12:07)
[2019-11-16] MEDS ORDERED: LANTUS SUBQ (12:07)
[2019-11-16] MEDS ORDERED: ACET-1182 PO (12:07)
[2019-11-16] MEDS ORDERED: GLUC-805 FS (12:07)
[2019-11-16] MEDS ORDERED: FURO40TA9 PO (12:07)
[2019-11-16] MEDS ORDERED: HUMSLIDE SUBQ (12:07)
--- NOTE | 2019-11-16 12:44 | NUR ---
AFTERNOON MEDICATIONS GIVEN. PAIN MEDICATIONS GIVEN BP 161/98, HR 92. NO SIGNS OF DISTRESS NOTED. WILL CONTINUE TO MONITOR.
[2019-11-16] MEDS: GAUZE TP SCH ×2 (13:00→14:30)
--- NOTE | 2019-11-16 15:24 | NUR ---
11/16/19 RD FOLLOW UP COMPLETED PLEASE REFER TO NUTRITION ASSESSMENT UNDER CARE ACTIVITY FOR ESTIMATED NUTRITIONAL NEEDS. 1. CONTINUE CCHO 60GM AND RENAL PROTEIN 80 GM DIET 2. CONTINUE FLUID RESTRICTION OF 1300 ML/DAY 3. CONTINUE REJI BID 4. ENCOURAGE PO INTAKE AND FOLLOW FOOD PREFERENCE 5. RD TO FOLLOW-UP 3-5 DAYS, MODERATE RISK YOLIE RECINOS, RD
[2019-11-16 16:00] VITALS: BP 160/103
--- NOTE | 2019-11-16 16:26 | NUR ---
NO INSULIN COVERAGE NEEDED FOR BLOOD GLUCOSE OF 108. PATIENT WOUNDS CLEANED AND DRESSINGS CHANGED. NO SIGNS OF DISTRESS NOTED. WILL CONTINUE TO MONITOR.
--- NOTE | 2019-11-16 16:58 | NUR ---
RECEIVED CALL FROM VAULT CASHIER, KERI. PATIENT WOULD BE PICKED UP BY LUZMA COLEMAN AT 1945, HOME HEALTH ARRANGED WITH [facility]. FOLLOW UP WITH PATIENT'S ON [address] 6 ROOM NUMBER. WILL FOLLOW THROUGH. WILL CONTINUE TO MONITOR.
--- NOTE | 2019-11-16 17:24 | NUR ---
RECEIVED CALL FROM PATIENT'S , PATIENT ASSIGNED TO ROOM 123 IN MOTEL 6. WILL RELAY TO TRANSPORT. WILL CONTINUE TO MONITOR.
[2019-11-16 17:37] VITALS: BP 151/89
[2019-11-16 17:51] VITALS: BP 151/89
--- NOTE | 2019-11-16 18:28 | NUR ---
DISCHARGE TEACHINGS GIVEN TO PATIENT, REINFORCEMENT NEEDED. NOTED DISINTEREST IN PATIENT TEACHINGS. DISCUSSED IMPORTANCE OF TEACHING BUT PATIENT MAINTAINS DISINTERESTED. COVID-19 HANDOUT GIVEN (NUTRITION, HOME ISOLATION, 10 WAYS TO MANAGE RESPIRATORY SYMPTOMS). PICC LINE TO REMAIN FOR HOME IV ABX. EXPLAINED TO PATIENT ABOUT HOME HEALTH WITH [facility]. PATIENT VERBALIZES UNDERSTANDING. WILL CONTINUE TO MONITOR.
--- NOTE | 2019-11-16 19:21 | NUR ---
RECEIVED REPORT FROM DAY RN FOR CONTINUITY OF CARE. PATIENT AWAKE ON PHONE. AAOX4. RESPIRATIONS EVEN AND UNLABORED TO ROOM AIR WITH SAO2 AT 96%. SKIN IS WARM AND DRY. BILATERAL FOOT ULCERS NOTED. ABDOMEN IS SOFT AND NON-TENDER. PT HAS R UPPER ARM PICC LINE, PATENT AND INTACT RUNNING IVF TKO. DENIES ANY PAIN OR DISCOMFORT AT THIS TIME. NO REQUESTS MADE. POC DISCUSSED, REINFORCEMENT NEEDED. SAFETY MEASURES IN PLACE. DROPLET ISOLATION OBSERVED BY ALL STAFF. CALL LIGHT WITHIN REACH. WILL CONTINUE TO MONITOR.
--- NOTE | 2019-11-16 19:21 | NUR ---
ENDORSED TO DENTURE PROCESSOR NURSE FOR CONTINUITY OF CARE.
--- NOTE | 2019-11-16 20:00 | NUR ---
PATIENT REFUSED VITAL SIGNS AND ACCU CHECK. PT REFUSED MEDICATION DESPITE EDUCATION. NO S/S OF DISTRESS. PT ASKING WHEN TRANSPORT WILL BE HERE INFORMED PRODUCTION ESTIMATOR WAS AT 1945 THEY ARE RUNNING LATE BUT WILL F/U. WITH [facility]. ALL NEEDS MET.
--- NOTE | 2019-11-16 20:43 | NUR ---
PATIENT LEFT VIA GURNEY GOING TO [place] [id number] ON HOME HEALTH FOR ANCEF DAILY X3 WEEKS. LEFT WITH ERIC PICC LINE. D/C PAPERS AND TEACHING GIVEN. REFUSED D/C WOUND PICTURES. PT LEFT WITH SUPPLIES FOR DRESSING CHANGE. ARM BAND REMOVED. PT LEFT IN STABLE CONDITION.
--- NOTE | 2019-11-16 20:56 | NUR ---
PAGED DR UMAÑA FOR CRITICAL LAB: BLOOD CX + COCCI IN CLUSTERS INFORMED PT WAS D/C A FEW MINUTES AGO AND WILL CONTINUE ANCEF 2GM DAILY X 3 WEEKS WITH HOME HEALTH PER MD IT IS FINE.
== END 2019-11-16 20:43 | disposition home health service (06) | DRG 720 ==
LOC: MED 10:50 → MTU 15:10
PROVIDERS: ADMIT Internal Medicine Pulmonary Disease; ATTEND Internal Medicine Pulmonary Disease
PROC: 02HV33Z Insertion of Infusion Device into Superior Vena Cava, Percutaneous Approach (ICD-10-PCS; principal; 2019-11-01)
PROC: B548ZZA Ultrasonography of Superior Vena Cava, Guidance (ICD-10-PCS; 2019-11-01)
PROC: 30233N1 Transfusion of Nonautologous Red Blood Cells into Peripheral Vein, Percutaneous Approach (ICD-10-PCS; 2019-11-07)
DX: A41.01 Sepsis due to Methicillin susceptible Staphylococcus aureus (principal); U07.1 COVID-19; A08.4 Viral intestinal infection, unspecified; N17.0 Acute kidney failure with tubular necrosis; E66.01 Morbid (severe) obesity due to excess calories; E43 Unspecified severe protein-calorie malnutrition; Z68.42 Body mass index [BMI] 45.0-49.9, adult; I12.0 Hypertensive chronic kidney disease with stage 5 chronic kidney disease or end stage renal disease; L97.519 Non-pressure chronic ulcer of other part of right foot with unspecified severity; L97.529 Non-pressure chronic ulcer of other part of left foot with unspecified severity; N18.5 Chronic kidney disease, stage 5; K21.9 Gastro-esophageal reflux disease without esophagitis; E87.1 Hypo-osmolality and hyponatremia; D47.3 Essential (hemorrhagic) thrombocythemia; D68.9 Coagulation defect, unspecified; M86.672 Other chronic osteomyelitis, left ankle and foot; I89.0 Lymphedema, not elsewhere classified; N25.81 Secondary hyperparathyroidism of renal origin; E10.22 Type 1 diabetes mellitus with diabetic chronic kidney disease; E10.51 Type 1 diabetes mellitus with diabetic peripheral angiopathy without gangrene; E10.610 Type 1 diabetes mellitus with diabetic neuropathic arthropathy; E10.621 Type 1 diabetes mellitus with foot ulcer; E10.69 Type 1 diabetes mellitus with other specified complication; E10.65 Type 1 diabetes mellitus with hyperglycemia; E10.319 Type 1 diabetes mellitus with unspecified diabetic retinopathy without macular edema; D63.1 Anemia in chronic kidney disease; Z91.14 Patient's other noncompliance with medication regimen; Z79.4 Long term (current) use of insulin; Z79.899 Other long term (current) drug therapy
CPT/HCPCS: 36415; 71045; 71250; 73562; 73590; 73610; 73630; 76770; 80048; 80053; 80202; 80305; 81001; 82728; 82948; 83540; 83605; 83690; 83735; 83880; 84484; 85025; 85610; 85730; 86886; 86900; 86901; 86920; 87040; 87081; 93005; 99285; C1751; G0480; G0482; J0690; J0696; J0885; J1644; J1650; J1815; J2060; J2270; J2405; J2543; J3370; J3475; J3490; J7030; J7060; P9016; P9046; Q0092; U0003-CS

== ENCOUNTER 2022-02-26 15:57 | Inpatient (IN) | payer OTHER ==
[~2022-02-26] VITALS: Ht 172.7 cm; Wt 167.8 kg
[~2022-02-26 15:57] MED LIST changes: +ACET-1182 PO; +FER325 PO; +FURO40TA9 PO; +GLUC-805 FS; +HUMSLIDE SUBQ; +LANTUS SUBQ; -ROC2I IV; -VANC1.2526 IV; +VITC500 PO
[2022-02-26 16:00] VITALS: BP 147/98
--- NOTE | 2022-02-26 16:00 | NUR ---
BIBA TAKEN TO BED 9
--- NOTE | 2022-02-26 16:00 | NUR ---
Daniel vieira in [facility] - 02/26/22 at 1858 by NEO BIBA TAKEN TO BED 10
--- NOTE | 2022-02-26 16:05 | NUR ---
BIBA Addendum: 02/26/22 at 1857 by MEDDM BIBA ALS TO ER BED 9
[2022-02-26] MEDS ORDERED: ONDANSETRON 4 MG/2 ML VIAL IVP ONE (16:30)
[2022-02-26] MEDS ORDERED: MORPHINE SULFATE 10 MG/ML VIAL IVP ONE (16:30)
[2022-02-26] MEDS ORDERED: diphenhydrAMINE 50 MG/ML VIAL IVP ONE (17:10)
--- NOTE | 2022-02-26 17:10 | NUR ---
PATIENT REFUSING CT SCAN STATING "I DONT NEED A CT SCAN I KNOW WHATS WRONG WITH ME I ONLY WANT TO TALK TO THE DOCTOR." DR. DURBIN MADE AWARE.
[2022-02-26 17:33] LABS: BASOPHILS # (AUTO) 0.1 K/uL (0.00-0.22); EOSINOPHILS # (AUTO) 0.5 K/uL (0-0.4); HEMATOCRIT 24.4 % (36-52); HEMOGLOBIN 8.2 g/dL (12.0-18.0); LYMPHOCYTES # (AUTO) 1.1 K/uL (2.0-11.5); LYMPHOCYTES % (AUTO) 14.6 % (20.5-51.1); MEAN CORPUSCULAR HEMOGLOBIN 30 pg (27-31); MEAN CORPUSCULAR HGB CONC 34 g/dL (33-37); MEAN CORPUSCULAR VOLUME 89.4 fL (80-94); MONOCYTES % (AUTO) 12.6 % (1.7-9.3); NEUTROPHILS # (AUTO) 5.2 K/uL (1.8-7.7); NEUTROPHILS % (AUTO) 65.8 % (42.2-75.2); PLATELET COUNT (AUTO) 323 K/uL (140-450); RED BLOOD CELL COUNT(AUTO) 2.73 MIL/uL (4.20-6.10); WHITE BLOOD COUNT (AUTO) 7.9 K/uL (4.8-10.8)
[2022-02-26 17:42] LABS: ALBUMIN 2.2 g/dL (3.4-5.0); ANION GAP 16.9 (8-16); CARBON DIOXIDE 30.3 mmol/L (21-32); MAGNESIUM 1.5 mg/dL (1.8-2.4); PHOSPHORUS 6.1 mg/dL (2.5-4.9); POTASSIUM 4.2 mmol/L (3.5-5.1); TOTAL BILIRUBIN 0.6 mg/dL (0.0-1.0)
[2022-02-26 17:47] LABS: CREATININE 5.5 mg/dL (0.6-1.3)
[2022-02-26] MEDS ORDERED: VANCOMYCIN 1,000 MG in DEXTROSE 5% 250 ML IV ONE (18:35)
[2022-02-26] MEDS ORDERED: PIPERACILLIN/TAZOBACTAM 2.25 GM in DEXTROSE 5% 50 ML IV ONE (18:35)
--- NOTE | 2022-02-26 18:40 | NUR ---
PATIENT REFUSING WOUND PICTURES TO BE TAKEN, STATES "I'M IN TOO MUCH PAIN, DO NOT TOUCH ME." DR. DURBIN MADE AWARE.
[2022-02-26] MEDS ORDERED: CARV25TA PO (18:56)
[2022-02-26] MEDS ORDERED: ACET-5636 PO (18:56)
[2022-02-26] MEDS ORDERED: VITA1TAB44 PO (18:56)
[2022-02-26] MEDS ORDERED: AMLO10TA PO (18:56)
[2022-02-26] MEDS ORDERED: HYDR-3233 PO (18:56)
[2022-02-26] MEDS ORDERED: LEVE500T9 PO (18:56)
[2022-02-26] MEDS ORDERED: CALC667T8 PO (18:56)
[2022-02-26] MEDS ORDERED: HYDR2TAB6 PO (18:56)
--- NOTE | 2022-02-26 19:10 | NUR ---
36/M MARTHA FROM [facility]. EMS STATES PATIENT CALLED 911 AFTER COMPLETING DIALYSIS C/O TESTICULAR AND PENILE PAIN. 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 PATIENT STATES HE FEELS PAIN WORSENED TODAY, SWELLING NOTED TO TESTICLES, 3+ PITTING EDEMA TO BILATERAL UPPER LEGS. PATIENT DENIES RECENT FEVERS, CHILLS, STATES AT HOME ASSISTS WITH WOUND CARE AND MEDICATIONS.
--- NOTE | 2022-02-26 19:15 | NUR ---
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 AWARE.
--- NOTE | 2022-02-26 19:18 | NUR ---
MARVIN SWAB COLLECTED AND WALKED TO LAB
--- NOTE | 2022-02-26 19:30 | NUR ---
Pt report given to LYDIA RIZO. Transfer of care at this time.
[2022-02-26] MEDS ORDERED: PIPERACILLIN/TAZOBACTAM 2.25 GM VIAL IV ONE (19:37)
--- NOTE | 2022-02-26 19:53 | NUR ---
PT ORDERED FOOD AND MD OK FOR HIM TO EAT. PT REQUSTING MORE PAIN MEDICATION. WAITING FOR ADMIT ORDERS.
[2022-02-26] MEDS ORDERED: VANCOMYCIN 1,000 MG VIAL ONE (20:48)
--- NOTE | 2022-02-26 22:01 | NUR ---
Patient will be admitted to care of DR. FIGUEROA. Admited to TELEMETRY. Will go to room 119A. Belongings list completed. Report to HELENE RIZO.
--- NOTE | 2022-02-26 22:10 | NUR ---
[facility] SCROTAL INFECTION. PT IS AOX4, BED BOUND, ABLE TO VERBALIZE NEEDS BUT VERY NON-COMPLIANT AND REFUSED A LOT. PT IS ON ROOM AIR AND ON NPO AT MIDNIGHT. PT HAS IV ON RIGHT WRIST GAUGE 20 RUNNING WITH VANCO AT 165ML/HR. PT HAS A WOUND ON SACRUM AND BUTTOCKS & PT REFUSED TO TAKE A PICTURE OF IT. PT WAS ORIENTED TO HOSPITAL/ROOM, BED BUTTON & CALL LIGHT. ALL SAFETY MEASURES IMPLEMENTED. BED IN LOW POSITION, BED WHEELS ON LOCK AND CALL LIGHT WITHIN REACH.
--- NOTE | 2022-02-26 22:42 | NUR ---
NOTIFIED DR. LESTER FOR THE PRESCRIPTION OF PAIN MEDICATION OF THE PT AND CODE STATUS. DR. LESTER REPLIED AND THAT HE WILL LOOK AT IT A LITTLE BIT.
--- NOTE | 2022-02-26 23:00 | NUR ---
PT REFUSED TO GIVE ADMISSION ASSESSMENT.
[2022-02-26] MEDS ORDERED: ACETAMINOPHEN 325 MG TAB PO PRN (23:05)
[2022-02-26] MEDS ORDERED: HYDROcodone/APAP 7.5/325 MG 1 TAB PO PRN (23:05)
[2022-02-26] MEDS ORDERED: ZOLPIDEM 5 MG TAB PO PRN (23:05)
[2022-02-26] MEDS ORDERED: MORPHINE SULFATE 2 MG/ML SYR IVP PRN (23:05)
[2022-02-26] MEDS ORDERED: guaiFENesin DM 200/20 MG-10 ML 10 ML UDC PO PRN (23:05)
[2022-02-26] MEDS ORDERED: DOCUSATE SODIUM 100 MG GELCAP PO PRN (23:05)
[2022-02-26] MEDS ORDERED: POTASSIUM CHLORIDE 10 MEQ TABER PO PRN (23:05)
[2022-02-26] MEDS ORDERED: hydrALAZINE 20 MG/ML VIAL IVP PRN (23:15)
[2022-02-26 23:27] LABS: PROTHROMBIN TIME 12.6 secs (10.8-13.4)
[2022-02-26 23:36] LABS: MAGNESIUM 1.5 mg/dL (1.8-2.4); PHOSPHORUS 6.1 mg/dL (2.5-4.9); THYROID STIMULATING HORMONE 12.18 uIU/mL (0.34-3.74)
--- NOTE | 2022-02-26 23:45 | NUR ---
PT REFUSED TO HAVE AN ULTRASOUND TESTICLES. HEALTH EDUCATION & INSTRUCTION WAS GIVEN TO PT BUT STILL REFUSED ON IT.
--- NOTE | 2022-02-26 23:55 | NUR ---
INFORMED THE PT THAT HE WILL BE ON NPO THIS MIDNIGHT BUT THE PT REFUSED ON IT. INFORMED DR. LESTER THAT PT REFUSED NPO THIS MIDNIGHT.
--- NOTE | 2022-02-27 | NUR ---
PRN PAIN MEDICATION WAS GIVEN TO PT PER MD ORDER DUE TO SCROTAL PAIN WITH THE PAIN SCALE OF 7/10. ALL SAFETY MEASURES IMPLEMENTED. BED IN LOW POSITION, BED WHEELS ON LOCK AND CALL LIGHT WITHIN REACH.
[2022-02-27] MEDS: ONDANSETRON 4 MG/2 ML VIAL IM/IVP PRN ×2 (00:01→22:13)
[2022-02-27] MEDS: carvediloL 12.5 MG TAB PO SCH ×3 (00:06→22:25)
--- NOTE | 2022-02-27 00:06 | NUR ---
SCHEDULED AND PRESCRIBED MEDICATION WAS TO PT PER MD ORDER. ALL SAFETY MEASURES IMPLEMENTED. BED IN LOW POSITION, BED WHEELS ON LOCK AND CALL LIGHT WITHIN REACH.
--- NOTE | 2022-02-27 02:00 | NUR ---
PT WAS TURNED POSITION AND CHANGED LINENS. NO S/S OF PAIN AT THIS TIME. NO S/S OF RESPIRATORY DISTRESS NOTED. ALL SAFETY MEASURES IMPLEMENTED. BED IN LOW POSITION, BED WHEELS ON LOCK AND CALL LIGHT WITHIN REACH.
[2022-02-27 04:00] VITALS: BP 140/90
[2022-02-27] MEDS ORDERED: PIPERACILLIN/TAZOBACTAM 2.25 GM VIAL IV ONE (04:02)
[2022-02-27] MEDS: PIPERACILLIN/TAZOBACTAM 2.25 GM in DEXTROSE 5% 50 ML IV SCH ×3 (04:04→22:14)
--- NOTE | 2022-02-27 04:04 | NUR ---
SCHEDULED AND PRESCRIBED MEDICATION WAS GIVEN TO PT PER MD ORDER. ALL SAFETY MEASURES IMPLEMENTED. BED IN LOW POSITION, BED WHEELS ON LOCKED AND CALL LIGHT WITHIN REACH.
--- NOTE | 2022-02-27 04:45 | NUR ---
PT REFUSED TO GET BLOOD SAMPLE FOR LAB. EDUCATED THE PT REGARDING THE IMPORTANCE OF IT BUT PT STILL REFUSED.
--- NOTE | 2022-02-27 07:34 | NUR ---
PT IS STABLE. ENDORSED PT TO MORNING SHIFT NURSE FOR CONTINUITY OF CARE.
[2022-02-27 08:00] VITALS: BP 153/83
[2022-02-27] MEDS: FERROUS SULFATE 325 MG TABEC PO SCH ×2 (08:00→17:46)
[2022-02-27] MEDS ORDERED: MORPHINE SULFATE 2 MG/ML SYR IVP PRN (08:11)
[2022-02-27] MEDS: hydrALAZINE 10 MG TAB PO SCH ×3 (09:00→17:47)
[2022-02-27] MEDS: PANTOPRAZOLE 40 MG TABEC PO SCH (09:00)
[2022-02-27] MEDS ORDERED: LEVETIRACETAM PO SCH (09:00)
[2022-02-27] MEDS: amLODIPine 5 MG TAB PO SCH (09:18)
[2022-02-27 12:00] VITALS: BP 158/96
[2022-02-27] MEDS: levETIRAcetam 500 MG TAB PO SCH ×2 (12:43→17:47)
--- NOTE | 2022-02-27 13:40 | NUR ---
PATIENT HAS BEEN SCREENED AND CATEGORIZED MODERATE NUTRITION RISK. PATIENT WILL BE SEEN WITHIN 3-5 DAYS OF ADMISSION. 03/01/2211/27/[address]
--- NOTE | 2022-02-27 14:27 | NUR ---
DC PLANNING SW MET PT AT BEDSIDE TO COMPLETE ASSESSMENT. PT REPORTS RESIDING IN A GROUND FLOOR APT WITH HIS AT THE ADDRESS LISTED ON FILE. PT IDENTIFIED CHELSIE TURPIN, , EMERGENCY CONTACT AND MDM. PT REPORTS LAST MEETING WITH PCP, LAST MONTH. PT REPORTS BEING MEDICATION COMPLIANCE AND OBED BARRIERS IN ACCESS TO MEDICATIONS. PT REPORTS RECEIVING MEDICATION FROM [facility] [address] [place], WHEN NEEDED. PT REPORTS UTILIZING DME; FWW/WC/CANE/BC AND REQUIRES ASSISTANCE WITH ADL'S WHICH HIS AID WITH. PT RECEIVES [facility] HOURS OF 120 HRS/MONTH, [facility] CAREGIVER; CHELSIE TURPIN, . PT DENIES MENTAL HEALTH HX/SUBSTANCE USE HX. PT RECEIVES DIALYSIS AT [facility] ON , CHAIR TIME 10AM- 130PM. PT IS TRANSPORTED UTILIZING [employer] [facility] THAT IS ARRANGED BY PTS INSURANCE. PT REPORTS ADEQUATE FOOD IN THE HOME, AND REPORTS RECEIVING [employer] BENEFITS. PT HAS HX OF DIABETES THAT HE REPORTS IS WELL MANAGED. PT REPORTS DC PLAN IS TO RETURN HOME, ONCE MEDICALLY STABLE. SW INQUIRED ON RESOURCES NEEDED, PT DECLINED. Addendum: 02/27/22 at 1429 by Silviano Yan Amended: Links added.
[2022-02-27 16:00] VITALS: BP 155/89
[2022-02-27] MEDS: MORPHINE SULFATE 2 MG/ML SYR IVP PRN ×2 (17:48→22:14)
--- NOTE | 2022-02-27 19:20 | NUR ---
RECD. RESTING IN BED, AWAKE, A/OX4, OBESE. RESPIRATION EVEN AND UNLABORED. IV SALINE LOCK AT THE RIGHT WRIST G20, PATENT AND INTACT, AV SHUNT AT THE LEFT UPPER ARM WITH BRUIT AND THRILL. WITH BILATERAL AKA. VERY DEMANDING AND AT TIMES RUDE. REFUSED BACK TO BE CHECKED. DENIES PAIN . Addendum: 02/28/22 at 0015 by Bianca Rashid LVN CORRECTION: WITH RIGHT CHEST DIALYSIS CATHETER.
--- NOTE | 2022-02-27 19:21 | NUR ---
Patient's Plan of Care was discussed and reviewed with HORACIO: SABRA
--- NOTE | 2022-02-27 20:30 | NUR ---
REPOSITIONED IN BED WITH FOUR NURSES HELPING TO TURN PATIENT.
[2022-02-27 22:00] VITALS: BP 154/92
--- NOTE | 2022-02-27 22:15 | NUR ---
PATIENT REFUSED IV ANTIBIOTICS TO BE INFUSED BY SALLIE ROSE. WANTS FIRST FOR THE IV LINE TO BE CHANGED.
--- NOTE | 2022-02-27 22:30 | NUR ---
NEW IV LINE INSERTED AT THE RIGHT FOREARM G22 BY GIULIANA RIZO.
--- NOTE | 2022-02-27 23:00 | NUR ---
ICE CHIPS GIVEN REQUESTED. BUSY WITH HIS IPOD. NO COMPLAINT AT THIS TIME.
--- NOTE | 2022-02-27 23:20 | NUR ---
COMPLAINING OF TOO MUCH PAIN IN THE RIGHT LOWER BACK, WANTS NURSE TO CALL MD FOR ANOTHER PAIN MEDICATION.
[2022-02-28] VITALS: BP 168/104
[2022-02-28] MEDS: HYDROmorphone PFS 2 MG/ML SYR IVP PRN ×3 (00:21→16:41)
--- NOTE | 2022-02-28 01:25 | NUR ---
SLEEPING COMFORTABLY IN BED, MEDICATED WITH DILAUDID A5 0021.
--- NOTE | 2022-02-28 03:00 | NUR ---
REPOSITIONED IN BED FOR COMFORT.
[2022-02-28 03:02] VITALS: BP 151/95
[2022-02-28] MEDS: MORPHINE SULFATE 2 MG/ML SYR IVP PRN ×5 (03:03→22:19)
[2022-02-28] MEDS: PIPERACILLIN/TAZOBACTAM 2.25 GM in DEXTROSE 5% 50 ML IV SCH ×3 (05:30→21:11)
[2022-02-28 05:49] LABS: BASOPHILS # (AUTO) 0.1 K/uL (0.00-0.22); BASOPHILS % (AUTO) 0.7 % (0.0-2.0); EOSINOPHILS # (AUTO) 0.6 K/uL (0-0.4); EOSINOPHILS % (AUTO) 5.9 % (0.0-4.0); HEMATOCRIT 23.6 % (36-52); HEMOGLOBIN 7.8 g/dL (12.0-18.0); LYMPHOCYTES # (AUTO) 1.3 K/uL (2.0-11.5); LYMPHOCYTES % (AUTO) 13.3 % (20.5-51.1); MEAN CORPUSCULAR HEMOGLOBIN 29 pg (27-31); MEAN CORPUSCULAR HGB CONC 33 g/dL (33-37); MEAN CORPUSCULAR VOLUME 89.3 fL (80-94); MONOCYTES # (AUTO) 1.2 K/uL (0.8-1.0); MONOCYTES % (AUTO) 13.1 % (1.7-9.3); NEUTROPHILS # (AUTO) 6.4 K/uL (1.8-7.7); PLATELET COUNT (AUTO) 300 K/uL (140-450); RED BLOOD CELL COUNT(AUTO) 2.65 MIL/uL (4.20-6.10); RED CELL DISTRIBUTION WIDTH 15.3 % (11.6-13.7); WHITE BLOOD COUNT (AUTO) 9.5 K/uL (4.8-10.8)
[2022-02-28 06:28] LABS: ANION GAP 15.9 (8-16); CARBON DIOXIDE 27.2 mmol/L (21-32); POTASSIUM 5.1 mmol/L (3.5-5.1)
[2022-02-28 07:08] LABS: T4 (THYROXINE) 5.7 ug/dL (4.5-12.0)
--- NOTE | 2022-02-28 07:40 | NUR ---
CONDITION REMAIN STABLE. ENDORSED TO AM SHIFT NURSE FOR CONTINUITY OF CARE.
[2022-02-28 08:00] VITALS: BP 151/95
[2022-02-28] MEDS: FERROUS SULFATE 325 MG TABEC PO SCH ×2 (08:29→16:19)
[2022-02-28] MEDS: PANTOPRAZOLE 40 MG TABEC PO SCH (08:31)
[2022-02-28] MEDS: hydrALAZINE 10 MG TAB PO SCH ×3 (08:31→16:19)
[2022-02-28] MEDS: carvediloL 12.5 MG TAB PO SCH ×2 (08:32→21:12)
[2022-02-28] MEDS: amLODIPine 5 MG TAB PO SCH (08:32)
[2022-02-28] MEDS: levETIRAcetam 500 MG TAB PO SCH ×3 (08:32→12:33)
--- NOTE | 2022-02-28 11:27 | NUR ---
Pt. refused CT abdomen and pelvis
--- NOTE | 2022-02-28 12:12 | NUR ---
Pt. is refusing to take Petros
[2022-02-28 16:02] VITALS: BP 151/78
--- NOTE | 2022-02-28 19:20 | NUR ---
RECEIVED PT FROM AM NURSE FOR CONTINUITY OF CARE.PT IS STABLE
[2022-03-01] MEDS: HYDROmorphone PFS 2 MG/ML SYR IVP PRN ×3 (00:17→21:22)
--- NOTE | 2022-03-01 01:00 | NUR ---
PATIENT ASLEEP , NO S/SX OF DISTRESS NOTED
[2022-03-01 04:00] VITALS: BP 135/94
[2022-03-01] MEDS: PIPERACILLIN/TAZOBACTAM 2.25 GM in DEXTROSE 5% 50 ML IV SCH ×3 (05:19→21:22)
--- NOTE | 2022-03-01 05:30 | NUR ---
PT REFUSED BLD DRAW AND SCROTAL SWAB. PT SAID TO DO IT WHEN DILAUDID IS GIVEN WHICH IS DUE AT 8 AM
[2022-03-01] MEDS: MORPHINE SULFATE 2 MG/ML SYR IVP PRN ×4 (05:33→23:10)
[2022-03-01] MEDS: FERROUS SULFATE 325 MG TABEC PO SCH ×2 (07:30→16:44)
[2022-03-01] MEDS: ONDANSETRON 4 MG/2 ML VIAL IM/IVP PRN ×2 (07:33→18:48)
[2022-03-01 08:00] VITALS: BP 156/78
[2022-03-01] MEDS: carvediloL 12.5 MG TAB PO SCH ×2 (08:25→21:23)
[2022-03-01] MEDS: hydrALAZINE 10 MG TAB PO SCH ×3 (08:25→16:44)
[2022-03-01] MEDS: amLODIPine 5 MG TAB PO SCH (08:26)
[2022-03-01] MEDS: levETIRAcetam 500 MG TAB PO SCH ×3 (08:26→16:45)
[2022-03-01] MEDS: PANTOPRAZOLE 40 MG TABEC PO SCH (08:26)
[2022-03-01 09:28] LABS: ANION GAP 19.4 (8-16); CARBON DIOXIDE 27.3 mmol/L (21-32); POTASSIUM 5.7 mmol/L (3.5-5.1)
[2022-03-01 09:31] LABS: BASOPHILS # (AUTO) 0.1 K/uL (0.00-0.22); BASOPHILS % (AUTO) 1.1 % (0.0-2.0); EOSINOPHILS # (AUTO) 0.6 K/uL (0-0.4); EOSINOPHILS % (AUTO) 7.2 % (0.0-4.0); HEMATOCRIT 23.9 % (36-52); HEMOGLOBIN 7.9 g/dL (12.0-18.0); LYMPHOCYTES # (AUTO) 0.9 K/uL (2.0-11.5); LYMPHOCYTES % (AUTO) 11.2 % (20.5-51.1); MEAN CORPUSCULAR HEMOGLOBIN 30 pg (27-31); MEAN CORPUSCULAR HGB CONC 33 g/dL (33-37); MEAN CORPUSCULAR VOLUME 90.2 fL (80-94); MONOCYTES # (AUTO) 0.9 K/uL (0.8-1.0); MONOCYTES % (AUTO) 11.6 % (1.7-9.3); NEUTROPHILS # (AUTO) 5.6 K/uL (1.8-7.7); NEUTROPHILS % (AUTO) 68.9 % (42.2-75.2); PLATELET COUNT (AUTO) 272 K/uL (140-450); RED BLOOD CELL COUNT(AUTO) 2.65 MIL/uL (4.20-6.10); RED CELL DISTRIBUTION WIDTH 15.1 % (11.6-13.7); WHITE BLOOD COUNT (AUTO) 8.1 K/uL (4.8-10.8)
[2022-03-01 09:46] LABS: CREATININE 7.7 mg/dL (0.6-1.3)
--- NOTE | 2022-03-01 15:29 | NUR ---
HD done today removed 3 L
[2022-03-01 16:00] VITALS: BP 156/78
--- NOTE | 2022-03-01 16:46 | NUR ---
Pt. is [id number] with care and wound tx. Refused wound culture. Pt. asked for abdominal pad, gauze and NS to cleanse his scrotum area and asked nurse to leave the room. made aware. Addendum: 03/01/22 at 1649 by Agency 04 RN RN Pt. is non-compliant with care and wound tx. Refused wound culture. Pt. asked for abdominal pad, gauze and NS to cleanse his scrotum area and asked nurse to leave the room. made aware.
--- NOTE | 2022-03-01 20:30 | NUR ---
PT IS IN BED.A& X4.RESP.UNLABORED.SL PATENT.CALL LIGHT IN REACH. HE REFUSED VS CHECK.WILL CONTINUE MONITORING.
[2022-03-02] MEDS: HYDROmorphone PFS 2 MG/ML SYR IVP PRN ×5 (03:22→22:49)
[2022-03-02 04:00] VITALS: BP 140/80
--- NOTE | 2022-03-02 04:00 | NUR ---
IV WAS INFILTRATED.TOOK ANOTHER LINE IN LT FA WITH #22 G.
[2022-03-02] MEDS: PIPERACILLIN/TAZOBACTAM 2.25 GM in DEXTROSE 5% 50 ML IV SCH ×3 (05:00→21:56)
--- NOTE | 2022-03-02 06:29 | NUR ---
PT IS SLEEPING NOW.HAD SEVERAL PAIN MEDS.REFUSED LAB WORK TODAY.NO DISTRESS NOTED AT THIS TIME.REFUSES TO ASSESS HIS SKIN AND SCROTUM.CALL LIGHT WITHIN REACH
--- NOTE | 2022-03-02 07:20 | NUR ---
RECEIVED PT FROM NATURAL GAS PLANT TECHNICIAN NURSE FOR CONTINUITY OF CARE. PT IN BED WITH EYES CLOSED AND BLOW DRYER TURNED ON OVER BLANKET. RESPIRATIONS EVEN AND UNLABORED. NO DISTRESS NOTED. IV ON L A/C 22G. PT REFUSED AM ASSESSMENT.
[2022-03-02 08:00] VITALS: BP 137/80
[2022-03-02] MEDS: FERROUS SULFATE 325 MG TABEC PO SCH ×2 (08:01→17:00)
[2022-03-02] MEDS: carvediloL 12.5 MG TAB PO SCH ×3 (09:00→21:56)
[2022-03-02] MEDS: amLODIPine 5 MG TAB PO SCH ×2 (09:00→09:17)
[2022-03-02] MEDS: levETIRAcetam 500 MG TAB PO SCH ×4 (09:00→17:00)
[2022-03-02] MEDS: hydrALAZINE 10 MG TAB PO SCH ×4 (09:00→17:00)
[2022-03-02] MEDS: PANTOPRAZOLE 40 MG TABEC PO SCH ×2 (09:00→09:16)
--- NOTE | 2022-03-02 09:34 | NUR ---
PT C/O PAIN 10/14 ON BACK REQUEST MEDICATION. DILAUDID IV ADMINISTERED BY SALLIE CARPENTER.
[2022-03-02 10:19] LABS: BASOPHILS # (AUTO) 0.1 K/uL (0.00-0.22); BASOPHILS % (AUTO) 0.8 % (0.0-2.0); EOSINOPHILS # (AUTO) 0.6 K/uL (0-0.4); EOSINOPHILS % (AUTO) 7.7 % (0.0-4.0); HEMATOCRIT 25.6 % (36-52); HEMOGLOBIN 8.3 g/dL (12.0-18.0); LYMPHOCYTES # (AUTO) 0.9 K/uL (2.0-11.5); LYMPHOCYTES % (AUTO) 11.7 % (20.5-51.1); MEAN CORPUSCULAR HEMOGLOBIN 29 pg (27-31); MEAN CORPUSCULAR HGB CONC 32 g/dL (33-37); MEAN CORPUSCULAR VOLUME 90.2 fL (80-94); MONOCYTES # (AUTO) 1.1 K/uL (0.8-1.0); MONOCYTES % (AUTO) 13.6 % (1.7-9.3); NEUTROPHILS # (AUTO) 5.3 K/uL (1.8-7.7); NEUTROPHILS % (AUTO) 66.2 % (42.2-75.2); PLATELET COUNT (AUTO) 281 K/uL (140-450); RED BLOOD CELL COUNT(AUTO) 2.83 MIL/uL (4.20-6.10); RED CELL DISTRIBUTION WIDTH 15.1 % (11.6-13.7); WHITE BLOOD COUNT (AUTO) 7.9 K/uL (4.8-10.8)
[2022-03-02 10:31] LABS: ANION GAP 18.3 (8-16); CARBON DIOXIDE 28.2 mmol/L (21-32); POTASSIUM 5.5 mmol/L (3.5-5.1)
[2022-03-02 10:36] LABS: CREATININE 7.9 mg/dL (0.6-1.3)
[2022-03-02] MEDS ORDERED: SODIUM ZIRCONIUM CYCLOSILICATE 10 GM POWD.PACK PO ONE (10:50)
--- NOTE | 2022-03-02 11:49 | NUR ---
PT CALLS NURSE INTO ROOM. PT REQUEST TO KNOW MED SCHEDULE FOR DILAUDID. PT STATES "DR CHANGED THE ORDER SO I DONT HAVE TO WAIT SO LONG FOR IT" NURSE INFORMED PT HIS ORDER IS PRN Q4.
[2022-03-02] MEDS ORDERED: SODIUM ZIRCONIUM CYCLOSILICATE 10 GM POWD.PACK PO SCH (12:47)
--- NOTE | 2022-03-02 14:00 | NUR ---
NURSE WENT IN TO PT ROOM WITH SCHEDULED 1300 MEDS. PT ON A PHONE CALL. PT ASKED WHEN HE WAS GOING TO GET HIS DILAUDID. NURSE STATED RN PAULINE WILL BRING HIS MEDICATION SHORTLY. PT TOLD NURSE " GET OUT, IF YOURE NOT GOING TO GIVE ME MY DILAUDID YOU DONT NEED TO TALK TO ME. IM NOT TAKING ANY MEDICATIONS SO YOU CAN GET THEM OUT OF HERE".
--- NOTE | 2022-03-02 15:00 | NUR ---
NURSE WENT TO ROOM FOR WOUND ASSESMENT/ CARE. PT REFUSED FOR WOUNDS TO BE ASSESED. PT TEACHING ABOUT RISKS AND BENEFITS. PT AGAIN REFUSED.
--- NOTE | 2022-03-02 17:53 | NUR ---
PT REFUSED SCHEDULED MEDICATIONS. NURSE PROVIDED PT TEACHING REGARDING TAKING MEDICATIONS PRESCRIBED.
--- NOTE | 2022-03-02 19:30 | NUR ---
RECEIVED REPORT FROM DAY SHIFT MARS FOR CONTINUITY OF CARE. PATIENT IS A&O X4. PATIENT IS ON ROOM AIR, BREATHING IS NORMAL WITH SYMMETRICAL RISE AND FALL OF CHEST. IV IS A 22G LAC, NO FLUIDS RUNNING (SALINE LOCKED). PATIENT IS SLEEPING, LYING IN SEMI-FOWLERS POSITION. BED IS IN LOWEST POSITION, WHEELS LOCKED, CALL LIGHT IN PLACE. WILL CONTINUE TO OBSERVE PATIENT.
[2022-03-02 20:00] VITALS: BP 144/95
--- NOTE | 2022-03-02 23:40 | NUR ---
ADMINISTERED 2100 MEDICATIONS TO PATIENT. PATIENT TOLERATED THEM WELL, SWALLOWING WITHOUT ANY DIFFICULTY. PATIENT REQUESTED TO BE READJUSTED IN BED, CLEANED, AND HAVE NEW SHEETS PUT DOWN. PATIENT WAS READJUSTED WITH THE ASSISTANCE OF SALLIE PAULSON, BUYERS' AGENT ABHILASH AND MYSELF. PATIENT WAS FRUSTRATED DURING READJUSTMENT. AFTER READJUSTMENT, CLEANING, AND NEW SHEETS BEING PLACE ON BED; PATIENT REQUESTED PAIN MEDICATION. CHECKED PATIENT'S VITALS AND CHART; DILAUDID WAS APPROPRIATE TO ADMINISTER. ADMINISTERED DILAUDID TO PATIENT. PATIENT TOLERATED WELL. WAS CALLED TO LOBBY AROUND 2330 TO [facility] [employer]IPPER ORDER. PATIENT HAD ORDERED [employer]. PATIENT HAS BEEN EATING TAKE OUT FOOD. CHECKED BAG, JUST FOOD WAS IN BAG. GAVE BAG TO PATIENT, ASKING IF HE ORDERED THIS. PATIENT STATED YES. INFORMED PATIENT OF THE IMPORTANCE OF EATING THE FOOD PROVIDED BY THE HOSPITAL; PATIENT DIDN'T WANT TO HEAR IT AND JUST WANTED HIS FOOD. LEFT FOOD ON PATIENT'S TRAY TABLE HE REQUESTED; AND LEFT ROOM. PATIENT'S BREATHING WAS NORMAL WITH SYMMETRICAL RISE AND FALL OF CHEST. WILL CONTINUE TO OBSERVE PATIENT.
[2022-03-03] MEDS: HYDROmorphone PFS 2 MG/ML SYR IVP PRN ×5 (02:54→19:43)
--- NOTE | 2022-03-03 03:00 | NUR ---
ADMINISTERED IVP DILAUDID FOR PAIN. PATIENT TOLERATED MEDICATION WELL. WILL CONTINUE TO OBSERVE PATIENT.
[2022-03-03 04:00] VITALS: BP 150/86
[2022-03-03] MEDS: PIPERACILLIN/TAZOBACTAM 2.25 GM in DEXTROSE 5% 50 ML IV SCH ×2 (05:59→13:56)
[2022-03-03] MEDS: FERROUS SULFATE 325 MG TABEC PO SCH ×2 (07:21→17:50)
--- NOTE | 2022-03-03 07:26 | NUR ---
ADMINISTERED DILAUDID TO PATIENT FOR PAIN. PATIENT TOLERATED WELL. ADMINISTERED 0800 MEDICATION, PATIENT SWALLOWED WITHOUT DIFFICULTY. WILL CONTINUE TO OBSERVE PATIENT.
--- NOTE | 2022-03-03 07:45 | NUR ---
ENDORSED TO DAY SHIFT NURSE PEGGY FOR CONTINUITY OF CARE. PATIENT IS STABLE.
--- NOTE | 2022-03-03 08:00 | NUR ---
RECEIVED PATIENT FROM PM NURSE, WILL ASSUME ALL CARE OF PATIENT AT THIS TIME
--- NOTE | 2022-03-03 08:42 | NUR ---
PATIENT REFUSED AM LAB DRAW, WILL ATTEMPT AGAIN, ATTEMPTED TO EDUCATE ON RISKS OF NOT ADHERING TO PLAN OF CARE, REFUSED TO ACKNOWLEDGE INSTRUCTIONS
[2022-03-03] MEDS: levETIRAcetam 500 MG TAB PO SCH ×4 (09:00→17:50)
[2022-03-03] MEDS: PANTOPRAZOLE 40 MG TABEC PO SCH (09:07)
[2022-03-03] MEDS: hydrALAZINE 10 MG TAB PO SCH ×3 (09:08→17:50)
[2022-03-03] MEDS: amLODIPine 5 MG TAB PO SCH (09:08)
[2022-03-03] MEDS: carvediloL 12.5 MG TAB PO SCH ×2 (09:08→20:51)
--- NOTE | 2022-03-03 09:13 | NUR ---
PATIENT REFUSED KEPPRA, NO REASON GIVEN
--- NOTE | 2022-03-03 11:19 | NUR ---
03/03/2022 RD INITIAL ASSESSMENT COMPLETED. PLEASE REFER TO NUTRITION ASSESSMENT UNDER CARE ACTIVITY FOR ESTIMATED NUTRITIONAL NEEDS. 1.CONTINUE WITH CCHO 60 GMS + RENAL STANDARD 2.MONITOR PO INTAKE 3.RD TO FOLLOW-UP IN 5-7 DAYS PATIENT IS LOW RISK. RA VARGHESE, RD
[2022-03-03 14:00] VITALS: BP 145/86
--- NOTE | 2022-03-03 16:39 | NUR ---
PATIENT REFUSING ASSESSMENT AND DRESSING CHANGE TO SCROTUM, EXPLAINED THE RISKS OF REFUSING CARE, PATIENT VERBALIZED UNDERSTANDING
[2022-03-03 20:00] VITALS: BP 146/80
[2022-03-04] MEDS: HYDROmorphone PFS 2 MG/ML SYR IVP PRN ×5 (03:48→22:13)
[2022-03-04 04:00] VITALS: BP 140/76
[2022-03-04 08:00] VITALS: BP 154/90
[2022-03-04] MEDS: FERROUS SULFATE 325 MG TABEC PO SCH ×2 (08:58→17:24)
[2022-03-04] MEDS: carvediloL 12.5 MG TAB PO SCH ×2 (08:59→20:45)
[2022-03-04] MEDS: levETIRAcetam 500 MG TAB PO SCH ×3 (08:59→17:00)
[2022-03-04] MEDS: hydrALAZINE 10 MG TAB PO SCH ×3 (08:59→17:24)
[2022-03-04] MEDS: amLODIPine 5 MG TAB PO SCH (09:00)
[2022-03-04] MEDS: PANTOPRAZOLE 40 MG TABEC PO SCH (09:00)
--- NOTE | 2022-03-04 10:11 | NUR ---
PT. REFUSED WOUND CARE ASSESSMENT AND RECOMMENDATIONS, RISKS AND BENEFIT EXPLAINED, PT. STILL REFUSED, ONLY ALLOW ME TO TAKE A LOOK BUT NO TOUCH. OBSERVED AN ANTERIOR SCROTAL WITH A XEROFORM DRESSING IN PLACE.LIGHTLY SOILING,MILD ODOR. OFFER TO CHANGE DRESSING, PT REFUSED. PER PT. HE IS WAITING FOR TRANSFER, EXPLAIN TO PT. SOMETIME THE TRANSFER PROCESS MAY TAKE UP TO FEW DAYS AND WOUND CARE NEED DAILY DRESSING CHANGE. PT. IS UPSET AND YELL "DON'T TOUCH". RECOMMEND STANDARD CARE FOR WOUND CARE IF PT. ALLOW IT AT THIS TIME.
[2022-03-04] MEDS ORDERED: INSULIN LISPRO SLIDING SCALE 100 UNITS/ML VIAL SUBQ PRN (11:20)
[2022-03-04] MEDS ORDERED: DEXTROSE 50% 50 ML SYR IVP PRN (11:20)
[2022-03-04] MEDS: BLOOD GLUCOSE MONITORING 1 DEV DEV FS SCH ×3 (11:30→20:49)
--- NOTE | 2022-03-04 12:37 | NUR ---
DC PLANNING [facility], [facility]ILARY GAFF[facility]. MARTA GARDNER STATED NO BED AVAILABLE , [facility] NOT ACCEPTING PATIENT AT THIS TIME. CM TO FOLLOW Addendum: 03/05/22 at 1242 by Regina Givens RN DC PLANNING: CALLED [facility] SPOKE WITH SHARI STATED THEY ARE STILL AT THEIR CAPACITY, FAXED TO [facility] AND [facility] CM TO FOLLOW Addendum: 03/05/22 at 1712 by Regina Givens RN DC PLANNING: RECEIVED A CALL FROM [facility] SUP SPOKE WITH SHARI STATED THEIR UROLOGIST DECLINE THE CASE. HILARY GAFFNEY, [facility] AND [facility] STILL REVIEWING. CM TO FOLLOW Addendum: 03/06/22 at 1709 by Regina Givens RN DC PLANNING: CALLED [facility] [phone] SPOKE WITH INTAKE STATED [facility] CAN NOT PROVIDE THE SPECIAL PROCEDURE FOR SCROTUM WOUND. CALLED [facility] SPOKE WITH HOUSE SUP STATED THEY DON"T HAVE UROLOGIST SURGEON ,[facility] NO BED AVAILABLE AT THIS TIME. CM TO FOLLOW Addendum: 03/07/22 at 1654 by Regina Givens RN DC PLANNING: CM SPOKE WITH PATIENT, EXPLAINED THAT WILL ARRANGE OUT PATIENT UROLOGIST [facility] PATIENT VERBALIZED UNDERSTANDING AND AGREED TO BE DISCHARGED. ARRANGED TRANSPORT WITH [facility] REQUEST A BARIATRIC GURNEY PHARMACIST PER DIEM TIME 19OO. NOTIFIED LYLE CHARGE NURSE.
[2022-03-04 16:00] VITALS: BP 142/72
--- NOTE | 2022-03-04 20:49 | NUR ---
PT REFUSED BLOOD SUGAR CHECK.
--- NOTE | 2022-03-04 22:13 | NUR ---
PT COMPLAINTS OF SEVERE PAIN ON TESTICLE 12/15, PAIN MEDS - DILAUDID ADMINISTERED ORDER.
--- NOTE | 2022-03-04 23:13 | NUR ---
REASSESSMENT OF PAIN, PT IS AWAKE BUT CALM AND RELAX ON BED. PAIN DECREASE TO 2/10.
[2022-03-05] MEDS: HYDROmorphone PFS 2 MG/ML SYR IVP PRN ×5 (02:38→20:41)
--- NOTE | 2022-03-05 02:38 | NUR ---
PT COMPLAINTS OF SEVERE PAIN 7/10 OF TESTICLE PAIN, PAIN MEDS DILAUDID ADMINISTERED ORDER.
--- NOTE | 2022-03-05 03:38 | NUR ---
PAIN REASSESSMENT. PT IS ASLEEP, NO FACIAL GRIMACING.
[2022-03-05 04:00] VITALS: BP 132/81
--- NOTE | 2022-03-05 07:25 | NUR ---
ENDORSED TO DAY SHIFT NURSE FOR CONTINUITY OF CARE. PT IS ON STABLE CONDITION. NO SOB OR DISTRESS. ALL SAFETY MEASURES IN PLACE. ALL NEEDS ATTENDED.
[2022-03-05] MEDS: BLOOD GLUCOSE MONITORING 1 DEV DEV FS SCH ×4 (07:30→21:00)
--- NOTE | 2022-03-05 08:00 | NUR ---
PT REFUSED MORNING LABS, BLOOD SUGAR CHECK AND MORNING VITALS.
[2022-03-05] MEDS: hydrALAZINE 10 MG TAB PO SCH ×3 (09:00→17:18)
[2022-03-05] MEDS: amLODIPine 5 MG TAB PO SCH (09:00)
[2022-03-05] MEDS: levETIRAcetam 500 MG TAB PO SCH ×3 (09:00→17:00)
[2022-03-05] MEDS: carvediloL 12.5 MG TAB PO SCH ×2 (09:00→21:00)
[2022-03-05] MEDS: FERROUS SULFATE 325 MG TABEC PO SCH ×2 (10:34→17:18)
[2022-03-05] MEDS: PANTOPRAZOLE 40 MG TABEC PO SCH (10:38)
--- NOTE | 2022-03-05 11:30 | NUR ---
PT REFUSED BLOOD SUGAR CHECK. MADE AWARE.
[2022-03-05] MEDS ORDERED: DIL2I IVP (12:30)
[2022-03-05] MEDS ORDERED: HEPA500056 HD (12:30)
[2022-03-05] MEDS ORDERED: APR20I IVP (12:30)
[2022-03-05] MEDS ORDERED: KEP500 PO (12:30)
[2022-03-05] MEDS ORDERED: PANT40EC56 PO (12:30)
[2022-03-05] MEDS ORDERED: DOCU-299 PO (12:30)
[2022-03-05 16:00] VITALS: BP 147/94
--- NOTE | 2022-03-05 19:35 | NUR ---
ENDORSED PATIENT TO SOLDER DEPOSIT OPERATOR NURSE ZACK. PT IS STABLE.
--- NOTE | 2022-03-05 20:00 | NUR ---
ASSUMED CARE OF PT, DX SCROTAL WOUND, BILATERAL AKA, ON HD, ACCESS SITE TO LT CHEST, PT IS AAOX4, C/O 01/14 PAIN, PT WAS MEDICATED FOR PAIN, PT IS NON-COMPLAINT, REFUSES ACCU CHECKS AND MEDICATIONS, PT ONLY WANTS TO TAKE PAIN IV MEDS, PT ASSESSED, SEE ADULT SYSTEM ASSESSMENT, INSTRUCTED TO CALL FOR ASSISTANCE, CALL LIGHT WITHIN REACH, BED LOCKED AT LOWEST POSITION, NO DISTRESS NOTED, WILL CONTINUE TO MONITOR.
--- NOTE | 2022-03-05 21:40 | NUR ---
REFUSED PM MEDS, INCLUDING GLUCOSE CHECK, C/O 01/14 PAIN TO SCROTUM, PT WAS MEDICATED FOR PAIN, NO DISTRESS NOTED, WILL CONTINUE TO MONITOR.
[2022-03-05] MEDS: MORPHINE SULFATE 2 MG/ML SYR IVP PRN (22:08)
[2022-03-06] MEDS: HYDROmorphone PFS 2 MG/ML SYR IVP PRN ×4 (04:57→20:55)
--- NOTE | 2022-03-06 07:25 | NUR ---
RECEIVED REPORT FROM TAI CHI INSTRUCTOR NURSE FOR CONTINUITY OF CARE. PT IN BED AT THIS TIME, ON HIS TABLET. RESPIRATIONS ARE EVEN AND UNLABORED ON ROOM AIR. NO SIGNS OF DISTRESS NOTED. PT REFUSED ASSESSMENT, STATED "LEAVE ME ALONE, GET OUT". PER TAI CHI INSTRUCTOR NURSE, PT REFUSED VS, BLOOD GLUCOSE CHECKS, AND MEDICATIONS, WITH THE EXCEPTION OF PAIN MEDICATION. EDUCATED PT REGARDING IMPORTANCE OF CHECKING VS, PT YELLED "I DONT CARE, GET OUT". CALL LIGHT WITHIN REACH. ALL SAFETY MEASURES IN PLACE.
--- NOTE | 2022-03-06 07:26 | NUR ---
NOTICED THAT PT HAS PERSONAL MANAGER MOBILE AT BEDSIDE. WAS INFORMED DURING SHIFT REPORT THAT PT UTILIZES THIS MANAGER MOBILE FOR DRYING HIS TESTICLES AND BODY. INFORMED THAT THE DANGERS OF THIS, PT STATED "MIND YOUR BUSINESS. I ALWAYS DO THIS". ASKED PT IF HE WOULD MIND IF STAFF PUT AWAY THE DRYER, PT REFUSED. STATED "I DONT CARE, GO AWAY".
[2022-03-06] MEDS: BLOOD GLUCOSE MONITORING 1 DEV DEV FS SCH ×4 (07:30→21:00)
--- NOTE | 2022-03-06 07:55 | NUR ---
CLOSING NO CHANGE ON STATUS, NO DISTRESS NOTED, REPORT GIVEN TO SALLIE URBANO PER SBAR AT BEDSIDE.
[2022-03-06] MEDS: PANTOPRAZOLE 40 MG TABEC PO SCH (08:53)
[2022-03-06] MEDS: FERROUS SULFATE 325 MG TABEC PO SCH ×2 (08:54→17:00)
[2022-03-06] MEDS: hydrALAZINE 10 MG TAB PO SCH ×3 (08:54→17:00)
[2022-03-06] MEDS: levETIRAcetam 500 MG TAB PO SCH ×3 (08:54→17:00)
[2022-03-06] MEDS: carvediloL 12.5 MG TAB PO SCH ×2 (08:54→21:02)
[2022-03-06] MEDS: amLODIPine 5 MG TAB PO SCH (08:55)
--- NOTE | 2022-03-06 09:02 | NUR ---
STAFF ATTEMPTING TO GET VS FOR PT. PT REFUSING, YELLING AT STAFF. TELLING STAFF "IM TIRED OF YOUR BULLSHIT JUST GET OUT". WILL ATTEMPT AT A LATER TIME.
--- NOTE | 2022-03-06 10:02 | NUR ---
WENT TO TRY TO GET PT VS, PT STATES "NO LEAVE ME ALONE".
--- NOTE | 2022-03-06 11:35 | NUR ---
PT REFUSING BLOOD GLUCOSE CHECK. EDUCATED PT ON IMPORTANCE OF BLOOD GLUCOSE CHECKS, PT CONTINUES TO REFUSE.
--- NOTE | 2022-03-06 12:20 | NUR ---
PT CALLED AND STATED HE WOULD LIKE TO BE REPOSITIONED. STAFF 3 PERSON REPOSITIONED PT. PT REFUSED TO HELP STAFF. PT THEN STATED HE "WANTS SOMEONE TO HOLD HIS LEG UP IN THE AIR FOR A WHILE. I DONT WANT MY LEG TOUCHING THE MATTRESS. YOU NEED TO DO YOUR JOB AND HOLD MY DAMN LEG". STAFF INFORMED PT THAT SOME ASSISTANCE WOULD BE REQUIRED ON HIS BEHALF, PT YELLED "JUST LIFT UP MY LEG". STAFF CONTINUED TO ASSIST PT.
--- NOTE | 2022-03-06 13:38 | NUR ---
ENGINEERING ARRIVED TO SPEAK TO PT REGARDING PERSONAL CERTIFIED DETENTION DEPUTY PT UTILIZES AT BEDSIDE. ENGINEERING INFORMED PT THAT HE WAS NOT ABLE TO KEEP THIS ITEM AT BEDSIDE BECAUSE IT IS A HAZARD AND HAS NOT BEEN TESTED WITH HOSPITAL ELECTRICAL SOCKETS. PT MADE AWARE OF THIS, PT BEGAN TO YELL AND CURSE AT SECURITY AND ENGINEERING STAFF. WILL CONTINUE TO MONITOR.
[2022-03-06 16:00] VITALS: BP 181/90
--- NOTE | 2022-03-06 16:02 | NUR ---
CARDIAC MONITOR TECHNICIAN REPORTED VS OF 181/90. ATTEMPTED TO ADMINISTER ANTI HYPERTENSIVE MEDS, BECAUSE PT HAD BEEN REFUSING CARE AND MEDICATIONS ALL DAY, PT REFUSED ANTI-HYPERTENSIVE MEDICATION. EDUCATED PT ON DANGERS OF ELEVATED BP, PT STATED "I DONT CARE THATS NOT HIGH FOR ME. IT CAN BE HIGH FOR YOU BUT NOT ME I DONT WANT ANYTHING. JUST GIVE ME MY DILAUDID AND LEAVE".
--- NOTE | 2022-03-06 17:02 | NUR ---
PT CONTINUES TO ASK FOR PAIN MEDICATION. REMINDED PT THAT PAIN MEDICATION CANNOT BE GIVEN AT THIS TIME DUE TO TIME FRAME ORDERED BY MD. PT IS UPSET STATING "IM NOT ASKING FOR ANYTHING I JUST WANT MY PAIN MEDICATIONS. I HAVENT EVEN BEEN TAKING ANY PAIN MEDS. YOU GUYS ARE A BUNCH OF LIARS. JUST GIVE ME MY FUCKING DILAUDID AND LEAVE ME THE HELL ALONE". EDUCATED PT ONCE AGAIN THAT DILAUDID CANNOT BE GIVEN. PT THEN STATED "THEN GIVE ME MY MORPHINE UNTIL YOU CAN GIVE ME DILAUDID. I DONT KNOW WHY YOUR MAKING THIS SO DAMN HARD. JUST GIVE ME WHAT I WANT. IM SICK OF YOUR BULLSHIT".
--- NOTE | 2022-03-06 18:31 | NUR ---
PT ORDERED FOOD FROM [employer]. EDUCATED PT ON NECESSITY OF ADHERING TO [facility] DIET. PT CONTINUES TO BE NONCOMPLIANT.
--- NOTE | 2022-03-06 19:41 | NUR ---
ENDORSED PT TO DIRECTOR SECURITY MANAGEMENT NURSE FOR CONTINUITY OF CARE. PT IS STABLE.
--- NOTE | 2022-03-06 19:45 | NUR ---
RECEIVED REPORT FROM OUTGOING RN. PT IN BED, WITH FAMILY AT BED SIDE. PT NOTED AGITATED , ASKING FOR HIS NURSE AND HIS PAIN MEDICATION. VITAL SIGNS TAKEN, PT BP 159/94. OTHER PARAMETERS WNL. NOTED IV ACCESS @LAC SALINE LOCKED, PATENT. PT GIVEN ROUTINE COREG, PRN NORCO VIA IV PUSH. NO ASE NOTED.
[2022-03-07 01:23] VITALS: BP 159/94
[2022-03-07] MEDS: HYDROmorphone PFS 2 MG/ML SYR IVP PRN ×4 (02:39→22:06)
[2022-03-07] MEDS: BLOOD GLUCOSE MONITORING 1 DEV DEV FS SCH ×4 (07:11→21:00)
--- NOTE | 2022-03-07 07:30 | NUR ---
RECIEVED PT FROM WESTERN TACK ASSEMBLY LINE WORKER NURSE FOR CONTINUITY OF CARE. PT IN BED IV ON L F/A. PT RESPIRATIONS EVEN AND UNLABORED. PT REFUSED MORNING ASSESMENT. CALL LIGHT WITHIN REACH. ALL SAFETY PRECAUTIONS IN PLACE.
[2022-03-07] MEDS: FERROUS SULFATE 325 MG TABEC PO SCH ×2 (08:00→17:00)
[2022-03-07] MEDS: carvediloL 12.5 MG TAB PO SCH ×2 (09:00→22:06)
[2022-03-07] MEDS: levETIRAcetam 500 MG TAB PO SCH ×3 (09:00→17:00)
[2022-03-07] MEDS: amLODIPine 5 MG TAB PO SCH (09:00)
[2022-03-07] MEDS: hydrALAZINE 10 MG TAB PO SCH ×3 (09:00→17:00)
[2022-03-07] MEDS: PANTOPRAZOLE 40 MG TABEC PO SCH (09:00)
--- NOTE | 2022-03-07 11:57 | NUR ---
NURSE ARRIVED AT PT ROOM TO CHECK BLOOD SUGAR. PT REFUSED STATED "NO THANK YOU, I DONT WANT THAT". PT TEACHING REGARDING MANAGING OF BLOOD SUGAR. PT STILL REFUSE.
--- NOTE | 2022-03-07 16:00 | NUR ---
PT REFUSED WOUND CARE AND MEDS DUE AT 1700. PT TEACHING REGARDING RISKS AND BENEFITS PT CONTINUE TO REFUSE.
--- NOTE | 2022-03-07 17:30 | NUR ---
PT GIVEN DILAUDID FOR COMPLAINTS OF GENERAL BODY PAIN 11/14
--- NOTE | 2022-03-07 18:51 | NUR ---
RN RECEIVED A CALL FROM [facility] STATING THAT A DIFFERENT VENDOR NEEDED TO BE CALLED DIRECTLY BY HOSPITAL TO ARRANGE TRANSPORT. VENDOR IS CALL THE CAR, PHONE NUMBER [phone]. RN CALLED TO HAVE [facility] TRANSPORT ARRANGED AND ALSO SPOKE WITH THE PATIENTS SIGNIFICANT OTHER TO UPDATE HER ON CHANGE IN PICK-UP TIME. CALL THE CAR WILL [employer] OR [employer] WITH TIME OF TRANSPORT, CONFIRMATION NUMBER [id number].
--- NOTE | 2022-03-07 19:28 | NUR ---
RECEIVED PT IN ROOM WAITNG FOR HIS RIDE. OUT GOING NURSE REPORTED ALL DISCHARGE DOCUMENTATION COMPLETED AND IN PLACE, PT GIVEN HIS OWN COPIES. PT APPEARED RELAXED, HOPING TO LEAVE ANY TIME.`NOTED IV LINES ON LFA STILL IN PLACE. PT IN NO APPARENT DISTRESS.
--- NOTE | 2022-03-07 21:00 | NUR ---
RECEIVED MESSAGE FROM [facility] [place] INSURANCE THAT PT WILL BE PICKED UP@ 11.03 BY [employer]. TRANSPORT. MESSAGE RELAYED TO PT.
--- NOTE | 2022-03-07 22:00 | NUR ---
PT GIVEN HIS PRN PAIN MEDICATION REQUESTED, ASSISTED TO BE CLEANED UP WITH THE HELP OF 2 OTHER NURSES. PT REFUSED HIS ROUTINE ACCUCHECK, ONLY TOOK HIS BLOOD PRESSURE MEDICATIONS AFTER HE WAS GIVEN HIS PAIN MEDICATION, REFUSING TO TAKE ANY OTHER MEDICATION UNLESS HE TOOK HIS PAIN MEDICATION FIRST. PT REMAINED NON COMPLIANT TO ANY OTHER CARE AND GETS IRRITATED AND VERBALLY ABUSIVE WHEN APPROACHED TO PROVIDE CARE.
[2022-03-07] MEDS ORDERED: ACET-5636 PO (23:15)
[2022-03-08 01:37] VITALS: BP 178/94
[2022-03-08] MEDS: HYDROmorphone PFS 2 MG/ML SYR IVP PRN ×2 (02:36→06:42)
[2022-03-08] MEDS: BLOOD GLUCOSE MONITORING 1 DEV DEV FS SCH (06:42)
--- NOTE | 2022-03-08 08:02 | NUR ---
PT NAME BAND AND IV REMOVED BY SALLIE CARPENTER. PT GATHERED ALL BELONGINGS, AND DC PACKET TAKEN BY TRANSPORT STAFF. PT REQUESTED BEDPANS TO TAKE HOME. NURSE PROVIDED. PT IN STABLE CONDITION D/C TO HOME.
== END 2022-03-08 08:13 | disposition home or self-care (01) | DRG 727 ==
LOC: MED 15:57 → MTU 18:43
PROC: 5A1D70Z Performance of Urinary Filtration, Intermittent, Less than 6 Hours Per Day (ICD-10-PCS; principal; 2022-03-01)
DX: N49.2 Inflammatory disorders of scrotum (principal); E43 Unspecified severe protein-calorie malnutrition; I50.43 Acute on chronic combined systolic (congestive) and diastolic (congestive) heart failure; N17.0 Acute kidney failure with tubular necrosis; N18.6 End stage renal disease; I13.2 Hypertensive heart and chronic kidney disease with heart failure and with stage 5 chronic kidney disease, or end stage renal disease; Z68.43 Body mass index [BMI] 50.0-59.9, adult; G89.4 Chronic pain syndrome; E83.59 Other disorders of calcium metabolism; N50.819 Testicular pain, unspecified; D63.8 Anemia in other chronic diseases classified elsewhere; Z20.822 Contact with and (suspected) exposure to COVID-19; E11.22 Type 2 diabetes mellitus with diabetic chronic kidney disease; K21.9 Gastro-esophageal reflux disease without esophagitis; G40.909 Epilepsy, unspecified, not intractable, without status epilepticus; E83.42 Hypomagnesemia; E66.01 Morbid (severe) obesity due to excess calories; E03.9 Hypothyroidism, unspecified; D63.1 Anemia in chronic kidney disease; E11.40 Type 2 diabetes mellitus with diabetic neuropathy, unspecified; E11.51 Type 2 diabetes mellitus with diabetic peripheral angiopathy without gangrene; S31.30XA Unspecified open wound of scrotum and testes, initial encounter; X58.XXXA Exposure to other specified factors, initial encounter; Z89.612 Acquired absence of left leg above knee; Z89.611 Acquired absence of right leg above knee; Z79.4 Long term (current) use of insulin; Z99.2 Dependence on renal dialysis; Y93.89 Activity, other specified; Y99.8 Other external cause status; Y92.89 Other specified places as the place of occurrence of the external cause
CPT/HCPCS: 36415; 71045; 80048; 80053; 82150; 83036; 83605; 83690; 83735; 83880; 84100; 84436; 84439; 84443; 84479; 85025; 85610; 85730; 87040; 87081; 96365; 96367; 96375; 99285; J1170; J1200; J1644; J1815; J2270; J2405; J2543; J3370; J7060; Q0092